=== PATIENT | female | born 1960 | race Caucasian/White ===

== ENCOUNTER 2016-07-23 11:18 | Observation (INO) ==
[2016-07-23] MEDS ORDERED: methylPREDNISolone 125 MG/2 ML VIAL IVP ONE (11:30)
[2016-07-23] MEDS ORDERED: Ipratropium/Albuterol Neb 3 ML IH ONE (11:30)
--- NOTE | 2016-07-23 11:34 | Emergency Department Note ---
Disposition Clinical Impression: Acute exacerbation of chronic obstructive airways disease Disposition: Admitted As Inpatient Condition: Fair Referrals: Yves Chapa MD [Primary Care Provider] - Forms: ED Satisfaction Letter Time of Disposition: 13:10 SOB HPI - General Chief Complaint: ED Shortness of Breath/Dyspnea Stated Complaint: SHAWN Time Seen by Provider: 07/23/16 11:29 Source: patient Mode of arrival: ambulatory Limitations: no limitations Nursing Notes Reviewed: Yes Vital Signs Reviewed: Yes - History of Present Illness 56-year-old with a history of COPD comes in with increasing shortness of breath for the last day or 2. Patient has audible wheezes when I walk in the room. Pt Subjective Complaint: shortness of breath, cough Onset (ago): day(s) (1) Context: recent illness Severity: moderate Consistency/Duration: constant Improves with: nothing Worsens with: exertion Known history of: COPD Associated symptoms: Reports: wheezing Treatment prior to arrival: none Cough present: Yes Cough Description: Involuntary Cough Frequency: Intermittent - Related Data Home Medications Medication Instructions Recorded Confirmed Alprazolam [Xanax 0.5 MG Tablet] 0.5 mg PO DAILY PRN 02/11/15 07/23/16 Atorvastatin Calcium [Lipitor] 20 mg PO QAM 02/11/15 07/23/16 FLUoxetine HCl [Prozac] 40 mg PO QAM 02/11/15 07/23/16 Furosemide [Lasix] 20 - 40 mg PO QAM PRN 02/11/15 07/23/16 Hydrocodone/Acetaminophen [[place] 1 tab PO DAILY PRN 02/11/15 07/23/16 5-325 Tablet] Levothyroxine [Synthroid] 225 mcg PO QAM 02/11/15 07/23/16 Lisinopril/Hydrochlorothiazide 1 tab PO QAM 02/11/15 07/23/16 [Zestoretic 20-25 mg Tablet] Meloxicam [Mobic] 15 mg PO QAM 02/11/15 07/23/16 Budesonide/Formoterol 80/4.5 1 puff IH BID 05/12/15 07/23/16 [Symbicort 80/4.5] Potassium Chloride 10 meq PO DAILY PRN 07/05/15 07/23/16 Calcium Carbonate [Calcium] 500 - 1,000 mg PO DAILY 07/23/16 07/23/16 Roflumilast [Daliresp] 500 mcg PO DAILY 07/23/16 07/23/16 Tiotropium [place] [Spiriva 1 puff IH DAILY 07/23/16 07/23/16 Respimat] Previous Rx's Medication Instructions Recorded Albuterol Neb [AccuNeb] 1.25 mg IH Q6H 30 Days 02/13/15 Albuterol Sulfate [Proair 2 puff IH Q6H PRN #2 [email or web address] 02/13/15 Respiclick] Ropinirole [Requip] 1 mg PO HS #30 tablet 07/07/15 Allergies Allergy/AdvReac Type Severity Reaction Status Date / Time Temazepam [From Restoril] Allergy Hives Verified 05/12/15 19:54 All systems ED: reviewed and negative except as stated. Constitutional: Denies: fever, chills, weakness, weight change Eyes: Denies: eye pain, eye discharge, vision change ENT ED: Denies: ear pain, throat pain, dental pain, hearing loss, epistaxis, congestion, dysphagia Cardiovascular: Denies: chest pain, palpitations, dyspnea on exertion, edema, syncope Respiratory: Reports: cough, dyspnea, wheezes. Denies: hemoptysis, stridor Gastrointestinal: Denies: abdominal pain, nausea, vomiting, diarrhea, constipation, hematemesis, melena, hematochezia Genitourinary: Denies: dysuria, frequency, hematuria, discharge Musculoskeletal: Denies: back pain, neck pain, arthralgia, myalgia Integumentary: Denies: rash, abrasion, lesions Neurological: Denies: headache, weakness, numbness, paresthesias, confusion, abnormal gait, vertigo Psychiatric: Denies: anxiety, depression, suicidal thoughts, homicidal thoughts , auditory hallucinations, visual hallucinations Endocrine: Denies: fatigue Hematological/Lymphatic: Denies: easy bleeding, easy bruising Allergic/Immunologic: Denies: facial swelling, urticaria Past Medical History - Past Medical History Medical history: Reports: arthritis, CHF, COPD, GERD, hyperlipidemia, hypertension, osteoporosis, thyroid disease, venous stasis, other (Morbid obesity) Surgical history: Reports: hysterectomy Psychiatric history: Reports: anxiety, depression, other 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 - Social History Smoking Status: Former smoker Smokeless Tobacco Status: No Alcohol use: Reports: none Drug use: Reports: none Physical Exam - General Limitations: no limitations General appearance: alert, in no apparent distress - Head Head exam: atraumatic, normocephalic, normal inspection - Eye Eye exam: Present: normal appearance, PERRL, EOMI - ENT ENT exam: normal exam, normal oropharynx, mucous membranes moist - Neck Neck exam: Present: normal inspection, full ROM, trachea midline - Chest Chest inspection: Present: normal inspection, symmetric chest wall rise - Respiratory Respiratory exam: Present: respiratory distress (Mild to moderate), wheezes, accessory muscle use, prolonged expiratory phase - Cardiovascular Cardiovascular exam: Present: regular rate, normal rhythm, normal heart sounds - Abdominal Exam Abdominal exam: Present: soft, Non-Tender. Absent: tenderness, distention, guarding, rebound, rigidity - Extremities Exam Extremities exam: Present: normal inspection, full ROM. Absent: tenderness, pedal edema - Expanded Lower Extremity Exam Neurovascular/Tendon exam: Absent: motor deficit, sensory deficit, tendon deficit Gait: observed and normal - Back Exam Back exam: Present: normal inspection, full ROM. Absent: tenderness - Neurological Exam Neurological exam: Present: alert, oriented X3 - Psychiatric Psychiatric exam: Present: normal affect, normal mood - Skin Skin exam: Present: warm, dry, intact, normal color Course - Reevaluation(s) Reevaluation #1: This 6-year-old with a history of COPD who is oxygen dependent requiring 2 L comes in with increasing shortness of breath for the last day or 2. Chest x- rays negative patient did have diffuse wheezes tachypnea on arrival. Patient requiring 3 L now to maintain her sat. Patient given breathing treatments continues to have wheezing and exertional dyspnea. Time: 12:31 - Consultations Consultation #1: Discussed with , admit. Time: 13:10 Vital Signs Temperature 98.4 F 07/23/16 11:29 Pulse Rate 75 07/23/16 11:29 Respiratory Rate 24 07/23/16 11:29 Blood Pressure 175/93 07/23/16 11:29 O2 Sat by Pulse Oximetry 97 07/23/16 11:29 Temperature 98.4 F 07/23/16 11:29 Pulse Rate 76 07/23/16 12:36 Respiratory Rate 20 07/23/16 11:38 Blood Pressure 152/87 07/23/16 12:36 O2 Sat by Pulse Oximetry 96 07/23/16 12:36 Oxygen Delivery Oxygen Delivery Nasal Cannula Shortness of Breath/Dyspnea - Lab Data Lab results reviewed: Yes I reviewed the patient's lab results. Result diagrams: 07/23/16 11:49 07/23/16 11:49 Lab Results 07/23/16 07/23/16 07/23/16 Range/Units 11:49 11:49 11:49 WBC 9.4 (4.3-11.1) K/mcL RBC 4.55 (3.82-4.97) M/mcL Hgb 12.3 (11.5-15.4) g/dL Hct 39.2 (35.3-44.9) % MCV 86.2 (83.0-100.0) fL MCH 27.0 L (28.0-33.3) pg MCHC 31.4 L (31.6-35.5) g/dL RDW 14.2 (11.5-14.5) % Plt Count 231 (140-400) K/mcL MPV 9.7 (9.4-12.4) fL Immature Gran % 0.5 (0-4) % Seg Neutrophils % 75.6 % Lymphocytes % 8.6 % Monocytes % 9.1 % Eosinophils % 5.7 % Basophils % 0.5 % Neutrophils # 7.1 (1.6-8.9) K/mcL Lymphocytes # 0.8 (0.6-4.6) K/mcL Monocytes # 0.9 (0.0-1.3) K/mcL Eosinophils # 0.5 (0.0-0.6) K/mcL Basophils # 0.1 (0.0-0.2) K/mcL PT (9.4-12.1) Seconds INR APTT (26.0-36.0) Seconds Sodium 140 (136-145) mEq/L Potassium 3.5 (3.5-4.5) mEq/L Chloride 102 (98-109) mEq/L Carbon Dioxide 31 H (19-29) mEq/L BUN 8 (7-20) mg/dL Creatinine 0.70 (0.57-1.11) mg/dL Est GFR ( Amer) > 60 (> 60) Est GFR (Non-Af Amer) > 60 (> 60) BUN/Creatinine Ratio 11 (6-26) Glucose 111 H (70-99) mg/dL Calculated Osmolality 289 (280-300) Lactic Acid 0.7 (0.5-2.2) mmol/L Calcium 9.5 (8.6-10.8) mg/dL Troponin I (0-0.03) ng/mL B-Natriuretic Peptide (0-100) pg/mL 07/23/16 07/23/16 07/23/16 Range/Units 11:49 11:49 11:49 WBC (4.3-11.1) K/mcL RBC (3.82-4.97) M/mcL Hgb (11.5-15.4) g/dL Hct (35.3-44.9) % MCV (83.0-100.0) fL MCH (28.0-33.3) pg MCHC (31.6-35.5) g/dL RDW (11.5-14.5) % Plt Count (140-400) K/mcL MPV (9.4-12.4) fL Immature Gran % (0-4) % Seg Neutrophils % % Lymphocytes % % Monocytes % % Eosinophils % % Basophils % % Neutrophils # (1.6-8.9) K/mcL Lymphocytes # (0.6-4.6) K/mcL Monocytes # (0.0-1.3) K/mcL Eosinophils # (0.0-0.6) K/mcL Basophils # (0.0-0.2) K/mcL PT 11.7 (9.4-12.1) Seconds INR 1.1 APTT 25.1 L (26.0-36.0) Seconds Sodium (136-145) mEq/L Potassium (3.5-4.5) mEq/L Chloride (98-109) mEq/L Carbon Dioxide (19-29) mEq/L BUN (7-20) mg/dL Creatinine (0.57-1.11) mg/dL Est GFR ( Amer) (> 60) Est GFR (Non-Af Amer) (> 60) BUN/Creatinine Ratio (6-26) Glucose (70-99) mg/dL Calculated Osmolality (280-300) Lactic Acid (0.5-2.2) mmol/L Calcium (8.6-10.8) mg/dL Troponin I 0.00 (0-0.03) ng/mL B-Natriuretic Peptide 45 (0-100) pg/mL - Radiology Data Radiology results reviewed: Yes I reviewed the patient's radiology results. Chest X-Ray 07/23/16 11:30 IMPRESSION: Pulmonary vascular congestion. D/ / Zia Caldwell MD / Zia Caldwell MD Interpreting Provider: Zia Caldwell MD
[2016-07-23 12:01] LABS: Basophils # 0.1 K/mcL (0.0-0.2); Basophils % 0.5 %; Eosinophils # 0.5 K/mcL (0.0-0.6); Eosinophils % 5.7 %; Hematocrit 39.2 % (35.3-44.9); Hemoglobin 12.3 g/dL (11.5-15.4); Immature Granulocytes % 0.5 % (0-4); Lymphocytes # 0.8 K/mcL (0.6-4.6); Lymphocytes % 8.6 %; Mean Corpuscular HGB Conc 31.4 g/dL (31.6-35.5); Mean Corpuscular Volume 86.2 fL (83.0-100.0); Mean Platelet Volume 9.7 fL (9.4-12.4); Monocytes # 0.9 K/mcL (0.0-1.3); Monocytes % 9.1 %; Neutrophils # 7.1 K/mcL (1.6-8.9); Platelet Count 231 K/mcL (140-400); Red Blood Count 4.55 M/mcL (3.82-4.97); Red Cell Distribution Width 14.2 % (11.5-14.5); Segmented Neutrophils % 75.6 %
[2016-07-23 12:05] LABS: INR 1.1; Prothrombin Time 11.7 Seconds (9.4-12.1)
[2016-07-23 12:07] LABS: Activated Partial Thrombo Time 25.1 Seconds (26.0-36.0)
[2016-07-23 12:08] LABS: BUN/Creatinine Ratio 11 (6-26); Blood Urea Nitrogen 8 mg/dL (7-20); Calcium 9.5 mg/dL (8.6-10.8); Carbon Dioxide 31 mEq/L (19-29); Chloride 102 mEq/L (98-109); Glucose 111 mg/dL (70-99); Osmolality,Calculated 289 (280-300); Potassium 3.5 mEq/L (3.5-4.5); Sodium 140 mEq/L (136-145); eGFR For African Americans > 60 (> 60); eGFR For Non-African Americans > 60 (> 60)
[2016-07-23] MEDS ORDERED: Ipratropium/Albuterol Neb 3 ML IH STA (16:29)
[2016-07-23] MEDS ORDERED: Furosemide 40 MG/4 ML VIAL IVP STA (16:30)
[2016-07-23] MEDS ORDERED: Ipratropium/Albuterol Neb 3 ML ONE (16:33)
--- NOTE | 2016-07-23 16:58 | Internal Med History&Physical ---
<RomeroFalgunizoey Worley - Last Filed: 07/23/16 18:08> Date of Encounter: 07/23/16 Time of Encounter: 16:51 Assessment and Plan (1) Acute on chronic respiratory failure Current visit: Yes Status: Acute Secondary to COPD exacerbation No signs of PNA, CXR negative for opacities, normal WBC, no crackles on exam Levaquin, solumedrol, nebs, O2 supplementation to goal 90%, mucinex, fluter valve Continue home COPD medications Respiratory panel, strep antigen, legionella antigen are pending Qualifiers: Respiratory failure complication: hypoxia Qualified Code(s): J96.21 - Acute and chronic respiratory failure with hypoxia (2) Acute exacerbation of chronic obstructive airways disease Current visit: Yes Status: Acute See plan as above (3) Diastolic dysfunction Current visit: Yes Status: Suspected Suspected given CXR with pulmonary congestion and increased periperal edema Previous ECHO 07/06/15 poor study, LVEF 60%, mild concentric LVH, mild LV diastolic dysfunction, mildly dilated RV, no obvious valvular dysfunction, RSVP not estimated IV lasix Strict I&O Low salt diet, 1.8L fluid restriction diet (4) Obstructive sleep apnea Current visit: Yes Status: Acute Patient uses BIPAP at home Bipap ordered (5) Hypertension Current visit: Yes Status: Acute BP uncontrolled on presentation to hospital Continue Lisinopril Will hold HCTZ due to diuresis Qualifiers: Hypertension type: essential hypertension Qualified Code(s): I10 - Essential (primary) hypertension (6) GERD (gastroesophageal reflux disease) Current visit: No Status: Chronic PPI Qualifiers: Esophagitis presence: esophagitis presence not specified Qualified Code(s) : K21.9 - Gastro-esophageal reflux disease without esophagitis (7) Hypothyroid Current visit: No Status: Chronic Continue home dose of synthroid Qualifiers: Hypothyroidism type: unspecified Qualified Code(s): E03.9 - Hypothyroidism , unspecified (8) RLS (restless legs syndrome) Current visit: No Status: Suspected continue Requip (9) Morbid obesity with BMI of 40.0-44.9, adult Current visit: No Status: Chronic (10) DVT prophylaxis Current visit: No Status: Acute Heparin SQ Internal Medicine - H&P: HPI Chief complaint: dyspnea Admitted From: Emergency Dept Plans for Post Hospital Care: Home History of present illness: Ms. Guadalupe is a 56 year old female who presents to [facility] with 1 day history of worsening dyspnea. Patient states that she awoke yesterday morning with increased dyspnea which worsened through the night last night. Patient was up multiple times throughout the night. Patient awoke this morning with severe dyspnea that prevented her from walking down her hallway. Patient tried increasing her home O2 from 2L to 3L. She also did albuterol nebulizers every 3 hours. Patient admits cough productive of yellow to green mucus. No hemoptysis or brown sputum. She admits increased wheezing. Patient states that she raises her grandchildren. A couple of days ago, her grandchild was diagnosed with an URI and treated with antibiotics. Admits increased leg swelling. Patient denies fever, chills, weakness, chest pain, tachypnea, palpitations, abominal pain, diarrhea, constipation, dysuria, myalgia. Patient states that she has previously been hospitalized for COPD in the past. She denies having previously been placed on ventilatory due to COPD. Past Med Surg Social Fam HX - Past Medical History Medical history: arthritis, CHF, COPD, GERD, hyperlipidemia, hypertension, osteoporosis, thyroid disease, venous stasis, other Psychiatric history: anxiety, depression, other - Past Surgical History Surgical History: hysterectomy - Social History Smoking Status: Former smoker Smokeless Tobacco Status: No Alcohol use: none Drug use: none - Family History Mother Living Status: Age at : 68 Cause of : complications of brain surgery Hx Family Cardiac Disorders: Yes (HTN) Father Living Status: Still Living Hx Family Cardiac Disorders: Yes (HLD) Hx Family Cancer: Yes (KIDNEY CANCER) Internal Medicine - H&P: Meds Alprazolam [Xanax 0.5 MG Tablet] 0.5 mg PO DAILY PRN 02/11/15 [History] Atorvastatin Calcium [Lipitor] 20 mg PO QAM 02/11/15 [History] FLUoxetine HCl [Prozac] 40 mg PO QAM 02/11/15 [History] Furosemide [Lasix] 20 - 40 mg PO QAM PRN 02/11/15 [History] Hydrocodone/Acetaminophen [[place] 5-325 Tablet] 1 tab PO DAILY PRN 02/11/15 [ History] Levothyroxine [Synthroid] 225 mcg PO QAM 02/11/15 [History] Lisinopril/Hydrochlorothiazide [Zestoretic 20-25 mg Tablet] 1 tab PO QAM [History] Meloxicam [Mobic] 15 mg PO QAM 02/11/15 [History] Albuterol Neb [AccuNeb] 1.25 mg IH Q6H 30 Days 02/13/15 [Rx] Albuterol Sulfate [Proair Respiclick] 2 puff IH Q6H PRN #2 [email or web address] 02/13/15 [ Rx] Budesonide/Formoterol 80/4.5 [Symbicort 80/4.5] 1 puff IH BID 05/12/15 [History ] Potassium Chloride 10 meq PO DAILY PRN 07/05/15 [History] Ropinirole [Requip] 1 mg PO HS #30 tablet 07/07/15 [Rx] Calcium Carbonate [Calcium] 500 - 1,000 mg PO DAILY 07/23/16 [History] Roflumilast [Daliresp] 500 mcg PO DAILY 07/23/16 [History] Tiotropium [place] [Spiriva Respimat] 1 puff IH DAILY 07/23/16 [History] Allergies Temazepam [From Restoril] Allergy (Verified 05/12/15 19:54) Hives All Systems PM: A 10-system review of systems was performed and is negative for pertinent findings except as documented above in the HPI. - Constitutional Constitutional: no chills, no fever(s), no weakness - EENT Nose, mouth and throat: no nasal congestion, no sinus pain, no sinus pressure, no sore throat - Cardiovascular Cardiovascular ROS IM: dyspnea, dyspnea on exertion, edema, no chest pain - Respiratory Respiratory: cough, dyspnea, dyspnea on exertion, wheezing, change in phlegm color, no hemoptysis, no pain on inspiration, no pain with cough - Gastrointestinal Gastrointestinal: no constipation, no diarrhea - Genitourinary Genitourinary: no dysuria - Musculoskeletal Musculoskeletal ROS IM: no arthralgias, no myalgias - Neurological Neurological ROS: no numbness, no weakness - Constitutional Vitals: Temp Pulse Resp BP Pulse Ox 96.2 F L 82 17 174/75 97 07/23/16 14:48 07/23/16 14:48 07/23/16 14:48 07/23/16 14:48 07/23/16 14:48 General appearance: Present: mild distress (Patiet in tripod position. She speaks in one to two word sentences between breaths. ), A&O X 3, morbidly obese , pleasant, answers questions appropriately - Head Head exam: Present: atraumatic, normal inspection, normocephalic - Neck Neck exam general surgery: Present: full ROM, normal inspection, supple, trachea midline. Absent: lymphadenopathy, tenderness, thyromegaly - Respiratory Respiratory exam: Present: prolonged expiratory phase, rhonchi (to bilateral lung bases), wheezes (Diffuse wheezing in all lung black) - Cardiovascular Cardiovascular exam: Present: distant heart sounds (Difficult to appreciate heart sounds over loud wheezing), RRR. Absent: diastolic murmur, systolic murmur - GI/Abdominal GI/Abdominal exam: Present: normal bowel sounds, soft. Absent: distended, guarding, tenderness, no peritoneal signs - Extremities Exam Extremities exam: Present: pedal edema (1+ to bilateral lower extremities), warm , radial pulses palpable and symetrical - Neurological Exam Neurological exam: Present: oriented X3. Absent: no focal deficits, facial droop - Skin Additional comments: Waxy scales to bilateral lower extremities Internal Med - H&P Results - Labs CBC & Chem 7: 07/23/16 11:49 07/23/16 11:49 - EKG Data -: EKG Interpreted by Myself EKG shows normal: sinus rhythm Rate: normal - Impressions Chest X-Ray 07/23/16 11:30 IMPRESSION: Pulmonary vascular congestion. D/ / Zia Caldwell MD / Zia Caldwell MD Interpreting Provider: Zia Caldwell MD <Cathy Anderson E - Last Filed: 07/23/16 18:48> Date of Encounter: 07/23/16 Internal Medicine - H&P: HPI History of present illness: Ms. Guadalupe is a 56 year old female All Systems PM: A 10-system review of systems was performed and is negative for pertinent findings except as documented above in the HPI. - Constitutional Vitals: Temp Pulse Resp BP Pulse Ox 96.2 F L 82 16 174/75 94 07/23/16 14:48 04/20/17 14:48 07/23/16 16:36 07/23/16 14:48 07/23/16 16:36 Internal Med - H&P Results - Labs CBC & Chem 7: 07/23/16 11:49 07/23/16 11:49 - Attending Attestation I examined this patient and reviewed laboratory, imaging and all diagnostic data. My medical decision-making was reviewed with Dr Jasso - Resident Physician. I agree with the documented findings, disposition and treatment plan as described above
[2016-07-23] MEDS ORDERED: Naloxone 0.4 MG/ML INJ IVP PRN (17:10)
[2016-07-23] MEDS ORDERED: Albuterol 2.5 MG/3 ML NEBULIZER IH PRN (17:10)
[2016-07-23] MEDS ORDERED: Furosemide 40 MG TABLET PO SCH (17:15)
[2016-07-23] MEDS ORDERED: ALPRAZolam 0.5 MG TABLET PO PRN (17:18)
[2016-07-23] MEDS: levoFLOXacin 500 MG TABLET PO SCH (17:24)
[2016-07-23] MEDS: *HR* Heparin 5,000 UNIT/ML VIAL SQ SCH (18:44)
[2016-07-23] MEDS: Budesonide/Formoterol 80/4.5 MDI IH SCH (19:35)
[2016-07-23] MEDS: Ipratropium/Albuterol Neb 3 ML IH SCH ×2 (19:35→23:53)
[2016-07-23] MEDS: methylPREDNISolone 125 MG/2 ML VIAL IVP SCH (20:03)
[2016-07-23] MEDS: rOPINIRole 1 MG TABLET PO SCH (20:03)
[2016-07-23 20:05] LABS: Adenovirus Not Detected (Not Detect); Coronavirus 229E Not Detected (Not Detect); Coronavirus HKU1 Not Detected (Not Detect); Coronavirus NL63 Not Detected (Not Detect); Coronavirus OC43 Not Detected (Not Detect); Human Metapneumovirus Not Detected (Not Detect); Human Rhinovirus/Enterovirus Not Detected (Not Detect); Influenza A Subtype 2009 H1 Not Detected (Not Detect); Influenza A Untypeable Not Detected (Not Detect); Influenza B Not Detected (Not Detect); Parainfluenza Virus 1 Not Detected (Not Detect); Parainfluenza Virus 2 Not Detected (Not Detect)
[2016-07-23 20:06] LABS: Bordetella Pertussis Not Detected (Not Detect); Chlamydophila pneumoniae Not Detected (Not Detect); Mycoplasma pneumoniae Not Detected (Not Detect); Parainfluenza Virus 3 Not Detected (Not Detect); Parainfluenza Virus 4 Not Detected (Not Detect); Respiratory Syncytial Virus Not Detected (Not Detect)
[2016-07-23] MEDS ORDERED: Furosemide 40 MG/4 ML VIAL IVP SCH (21:00)
[2016-07-24] MEDS: Ipratropium/Albuterol Neb 3 ML IH SCH ×5 (03:39→20:03)
[2016-07-24 03:56] LABS: Basophils % 0.1 %; Hemoglobin 12.4 g/dL (11.5-15.4); Immature Granulocytes % 0.7 % (0-4); Lymphocytes % 3.8 %; Mean Corpuscular HGB Conc 31.8 g/dL (31.6-35.5); Mean Corpuscular Hemoglobin 27.3 pg (28.0-33.3); Mean Corpuscular Volume 85.9 fL (83.0-100.0); Mean Platelet Volume 10.4 fL (9.4-12.4); Monocytes % 1.9 %; Neutrophils # 9.6 K/mcL (1.6-8.9); Platelet Count 261 K/mcL (140-400); Red Blood Count 4.54 M/mcL (3.82-4.97); Red Cell Distribution Width 14.1 % (11.5-14.5); Segmented Neutrophils % 93.5 %
[2016-07-24 03:57] LABS: Lymphocytes # 0.4 K/mcL (0.6-4.6); Monocytes # 0.2 K/mcL (0.0-1.3)
[2016-07-24] MEDS: methylPREDNISolone 125 MG/2 ML VIAL IVP SCH ×3 (04:02→20:18)
[2016-07-24 04:10] LABS: BUN/Creatinine Ratio 13 (6-26); Blood Urea Nitrogen 10 mg/dL (7-20); Calcium 9.8 mg/dL (8.6-10.8); Carbon Dioxide 31 mEq/L (19-29); Chloride 100 mEq/L (98-109); Glucose 204 mg/dL (70-99); Magnesium 2.1 mg/dL (1.6-2.6); Osmolality,Calculated 295 (280-300); Potassium 3.4 mEq/L (3.5-4.5); Sodium 140 mEq/L (136-145); eGFR For African Americans > 60 (> 60); eGFR For Non-African Americans > 60 (> 60)
[2016-07-24] MEDS: *HR* HYDROcodone/Acet 5/325 mg TABLET PO PRN ×2 (05:05→20:22)
[2016-07-24] MEDS: *HR* Heparin 5,000 UNIT/ML VIAL SQ SCH ×2 (05:07→16:33)
[2016-07-24] MEDS ORDERED: rOPINIRole 1 MG TABLET PO PRN (08:42)
[2016-07-24] MEDS: FLUoxetine 20 MG CAPSULE PO SCH (08:56)
[2016-07-24] MEDS: levoFLOXacin 500 MG TABLET PO SCH (08:56)
[2016-07-24] MEDS: Furosemide 40 MG/4 ML VIAL IVP SCH ×2 (08:58→16:33)
[2016-07-24] MEDS ORDERED: Lisinopril 20 MG TABLET PO SCH (09:00)
[2016-07-24] MEDS ORDERED: NON-FORMULARY MEDICATION 1 EACH EACH (Atorvastatin Calcium [Lipitor] 20 MG) PO SCH (09:00)
[2016-07-24] MEDS ORDERED: (Roflumilast [Daliresp] 500 MCG) PO SCH (09:00)
--- NOTE | 2016-07-24 10:23 | Internal Med Progress Note ---
<RomeroFalguni Pinajose Worley - Last Filed: 07/24/16 12:31> Date of Encounter: 07/24/16 Time of Encounter: 08:30 - Assessment and plan (1) Acute on chronic respiratory failure Current Visit: Yes Status: Acute Assessment and plan: Secondary to COPD exacerbation No signs of PNA, CXR negative for opacities, normal WBC, no crackles on exam Levaquin, solumedrol, nebs, O2 supplementation to goal 90%, mucinex, fluter valve Continue home COPD medications Respiratory panel, strep antigen, legionella antigen are negative Patient minimally improved today Decreased O2 demand from 3L to 2L Qualifiers: Respiratory failure complication: hypoxia Qualified Code(s): J96.21 - Acute and chronic respiratory failure with hypoxia (2) Acute exacerbation of chronic obstructive airways disease Current Visit: Yes Status: Acute Assessment and plan: See plan as above (3) Diastolic dysfunction Current Visit: Yes Status: Suspected Assessment and plan: Suspected given CXR with pulmonary congestion and increased periperal edema Previous ECHO 07/06/15 poor study, LVEF 60%, mild concentric LVH, mild LV diastolic dysfunction, mildly dilated RV, no obvious valvular dysfunction, RSVP not estimated Repeat ECHO, pending IV lasix Strict I&O Low salt diet, 1.8L fluid restriction diet (4) Obstructive sleep apnea Current Visit: Yes Status: Acute Assessment and plan: Patient uses BIPAP at home BIPAP was ordered however not delivered to patient's room last night Patient states that she did not sleep last night and this may be secondary to dyspnea Will discuss with staff that BIPAP must be delivered tonight (5) Hypertension Current Visit: Yes Status: Acute Assessment and plan: BP uncontrolled on presentation to hospital Continue Lisinopril Will hold HCTZ due to diuresis with IV lasix Qualifiers: Hypertension type: essential hypertension Qualified Code(s): I10 - Essential (primary) hypertension (6) GERD (gastroesophageal reflux disease) Current Visit: No Status: Chronic Assessment and plan: Continue PPI Qualifiers: Esophagitis presence: esophagitis presence not specified Qualified Code(s) : K21.9 - Gastro-esophageal reflux disease without esophagitis (7) Hypothyroid Current Visit: No Status: Chronic Assessment and plan: Continue home dose of synthroid Qualifiers: Hypothyroidism type: unspecified Qualified Code(s): E03.9 - Hypothyroidism , unspecified (8) RLS (restless legs syndrome) Current Visit: No Status: Suspected Assessment and plan: Continue Requip (9) Morbid obesity with BMI of 40.0-44.9, adult Current Visit: No Status: Chronic (10) Hypokalemia Current Visit: Yes Status: Acute Assessment and plan: Repleted Continue to monitor (11) DVT prophylaxis Current Visit: No Status: Acute Assessment and plan: Heparin SQ - Time Spent With Patient 25 - 35 minutes (30 minutes including time with patient and coordinating care) - Subjective Interval history: Patient states that she feels somewhat better today. She continues to have wheezing. She decreased her O2 requirement to 2L from 3L. She states that she did not sleep last night. She states that she did not use a BIPAP last night because one was not brought to her room. - Constitutional Vitals: Temp Pulse Resp BP Pulse Ox 98.1 F 79 18 147/79 95 07/24/16 08:06 07/24/16 08:06 07/24/16 08:06 07/24/16 08:06 07/24/16 09:00 General appearance: Present: mild distress (Patiet continues to speak in short phrases, but this is improved from yesterday evening. ), A&O X 3, morbidly obese, pleasant, answers questions appropriately - Head Head exam: Present: atraumatic, normocephalic - Eye Eye exam: Present: EOMI, PERRL, conjuntiva pink, sclera anicteric - Neck Neck exam general surgery: Present: supple, trachea midline. Absent: lymphadenopathy - Respiratory Respiratory exam: Present: prolonged expiratory phase, wheezes (loud diffuse wheezing in all lung black). Absent: accessory muscle use, rales, rhonchi - Cardiovascular Cardiovascular exam: Present: RRR, +S1, +S2. Absent: diastolic murmur, gallop, rubs, systolic murmur - GI/Abdominal GI/Abdominal exam: Present: normal bowel sounds, soft, no peritoneal signs. Absent: distended, tenderness - Extremities Exam Extremities exam: Present: pedal edema (1+ pitting edema bilaterally), warm, radial pulses palpable and symetrical. Absent: calf tenderness, cyanotic - Neurological Exam Neurological exam: Present: CN II-XII intact, oriented X3, no focal deficits. Absent: facial droop, speech deficit - Skin Skin exam: Present: dry, intact Internal Medicine: Result - Labs CBC & Chem 7: 07/24/16 03:19 07/24/16 03:19 Labs: Short CBC 07/24/16 Range/Units 03:19 WBC 10.3 (4.3-11.1) K/mcL Hgb 12.4 (11.5-15.4) g/dL Hct 39.0 (35.3-44.9) % Plt Count 261 (140-400) K/mcL Neutrophils # 9.6 H (1.6-8.9) K/mcL BMP 07/24/16 03:19 Sodium 140 Potassium 3.4 L Chloride 100 Carbon Dioxide 31 H BUN 10 Creatinine 0.76 Glucose 204 H Calcium 9.8 - ABG Interpretation ABG results: PT/INR, D-dimer PT 11.7 Seconds (9.4-12.1) 07/23/16 11:49 - Impressions Chest X-Ray 07/23/16 11:30 IMPRESSION: Pulmonary vascular congestion. D/ / Zia Caldwell MD / Zia Caldwell MD Interpreting Provider: Zia Caldwell MD Consult Discharge Plan - Plan Referrals: Yves Chapa MD [Primary Care Provider] - <Cathy Anderson E - Last Filed: 07/24/16 16:52> Date of Encounter: 07/24/16 - Constitutional Vitals: Temp Pulse Resp BP Pulse Ox 97.9 F 83 18 153/79 94 07/24/16 15:29 07/24/16 15:29 07/24/16 16:00 07/24/16 15:29 07/24/16 16:00 Internal Medicine: Result - Labs CBC & Chem 7: 07/24/16 03:19 07/24/16 03:19 Labs: Short CBC 07/24/16 Range/Units 03:19 WBC 10.3 (4.3-11.1) K/mcL Hgb 12.4 (11.5-15.4) g/dL Hct 39.0 (35.3-44.9) % Plt Count 261 (140-400) K/mcL Neutrophils # 9.6 H (1.6-8.9) K/mcL BMP 07/24/16 03:19 Sodium 140 Potassium 3.4 L Chloride 100 Carbon Dioxide 31 H BUN 10 Creatinine 0.76 Glucose 204 H Calcium 9.8 - ABG Interpretation ABG results: PT/INR, D-dimer PT 11.7 Seconds (9.4-12.1) 07/23/16 11:49 - Attending Attestation I examined this patient and reviewed laboratory, imaging and all diagnostic data. My medical decision-making was reviewed with Dr Jasso - Resident Physician. I agree with the documented findings, disposition and treatment plan as described above
[2016-07-24] MEDS: Budesonide/Formoterol 80/4.5 MDI IH SCH ×2 (10:48→20:05)
[2016-07-24] MEDS ORDERED: Lisinopril 20 MG TABLET PO ONE (12:24)
--- NOTE | 2016-07-24 12:39 | Electrocardiograph Report ---
[place] [id number] Test Date: 2016-07-23 Pat Name: Kate Gudaalupe Department: 103 Room: 3A14 Gender: F Access Specialist: NANCI : 1960 Requested By: Storm Quiles Order Number: [id number] Reading MD: Neeta Mcneill Measurements Intervals [place] Rate: 73 P: 36 CT: 162 QRS: 27 QRSD: 98 T: 52 QT: 389 QTc: 415 Interpretive Statements SINUS RHYTHM Electronically Signed On 07-24-2016 12:37:45 EDT by Neeta Mcneill
[2016-07-24] MEDS: rOPINIRole 1 MG TABLET PO SCH (20:22)
[2016-07-25] MEDS: Ipratropium/Albuterol Neb 3 ML IH SCH ×3 (00:19→07:37)
[2016-07-25] MEDS: methylPREDNISolone 125 MG/2 ML VIAL IVP SCH (04:28)
[2016-07-25] MEDS: *HR* Heparin 5,000 UNIT/ML VIAL SQ SCH (06:00)
[2016-07-25 06:38] LABS: BUN/Creatinine Ratio 27 (6-26); Basophils % 0.1 %; Calcium 9.7 mg/dL (8.6-10.8); Carbon Dioxide 31 mEq/L (19-29); Chloride 105 mEq/L (98-109); Glucose 174 mg/dL (70-99); Hemoglobin 12.2 g/dL (11.5-15.4); Immature Granulocytes % 1.1 % (0-4); Lymphocytes # 0.6 K/mcL (0.6-4.6); Lymphocytes % 3.7 %; Magnesium 2.1 mg/dL (1.6-2.6); Mean Corpuscular HGB Conc 31.3 g/dL (31.6-35.5); Mean Corpuscular Hemoglobin 27.4 pg (28.0-33.3); Mean Corpuscular Volume 87.4 fL (83.0-100.0); Mean Platelet Volume 10.9 fL (9.4-12.4); Monocytes # 1.2 K/mcL (0.0-1.3); Monocytes % 7.1 %; Osmolality,Calculated 308 (280-300); Platelet Count 286 K/mcL (140-400); Potassium 4.2 mEq/L (3.5-4.5); Red Blood Count 4.46 M/mcL (3.82-4.97); Red Cell Distribution Width 14.6 % (11.5-14.5); Sodium 145 mEq/L (136-145); eGFR For African Americans > 60 (> 60); eGFR For Non-African Americans > 60 (> 60)
[2016-07-25 06:40] LABS: Blood Urea Nitrogen 22 mg/dL (7-20)
[2016-07-25 07:22] VITALS: BP 144/80
[2016-07-25] MEDS: Budesonide/Formoterol 80/4.5 MDI IH SCH (07:37)
[2016-07-25] MEDS: Furosemide 40 MG/4 ML VIAL IVP SCH (07:55)
[2016-07-25] MEDS: FLUoxetine 20 MG CAPSULE PO SCH (07:56)
[2016-07-25] MEDS: levoFLOXacin 500 MG TABLET PO SCH (07:56)
[2016-07-25] MEDS ORDERED: Lisinopril 20 MG TABLET PO SCH (09:00)
--- NOTE | 2016-07-25 09:41 | Discharge Summary ---
<RomeroFalgunizoey Worley - Last Filed: 07/25/16 13:32> Date of Encounter: 07/25/16 Time of Encounter: 09:39 - Discharge Diagnosis (1) Acute on chronic respiratory failure Priority: Primary Status: Acute Qualifiers: Respiratory failure complication: hypoxia Qualified Code(s): J96.21 - Acute and chronic respiratory failure with hypoxia (2) Acute exacerbation of chronic obstructive airways disease Priority: Primary Status: Acute (3) Diastolic dysfunction Priority: Secondary Status: Chronic (4) Obstructive sleep apnea Priority: Secondary Status: Chronic (5) Hypertension Priority: Secondary Status: Chronic Qualifiers: Hypertension type: essential hypertension Qualified Code(s): I10 - Essential (primary) hypertension (6) GERD (gastroesophageal reflux disease) Priority: Secondary Status: Chronic Qualifiers: Esophagitis presence: esophagitis presence not specified Qualified Code(s) : K21.9 - Gastro-esophageal reflux disease without esophagitis (7) Hypothyroid Priority: Secondary Status: Chronic Qualifiers: Hypothyroidism type: unspecified Qualified Code(s): E03.9 - Hypothyroidism , unspecified (8) RLS (restless legs syndrome) Priority: Secondary Status: Chronic (9) Morbid obesity with BMI of 40.0-44.9, adult Priority: Secondary Status: Chronic (10) Hypokalemia Priority: Secondary Status: Acute (11) DVT prophylaxis Priority: Secondary Status: Acute - Discharge Medications Prescriptions: Aspirin Enteric Coated [Aspirin EC] 81 mg PO DAILY #30 tablet.dr Furosemide [Lasix] 60 mg PO BID #90 tablet GuaiFENesin ER [Mucinex] 600 mg PO BID #10 tbbp.12hr Levofloxacin [Levaquin] 500 mg PO DAILY #4 tablet Lisinopril [Zestril] 40 mg PO DAILY #30 tablet PredniSONE 10 mg PO AD #45 tablet Home Medications: Alprazolam [Xanax 0.5 MG Tablet] 0.5 mg PO DAILY PRN 02/11/15 [History] Atorvastatin Calcium [Lipitor] 20 mg PO QAM 02/11/15 [History] FLUoxetine HCl [Prozac] 40 mg PO QAM 02/11/15 [History] Hydrocodone/Acetaminophen [[place] 5-325 Tablet] 1 tab PO DAILY PRN 02/11/15 [ History] Levothyroxine [Synthroid] 225 mcg PO QAM 02/11/15 [History] Albuterol Sulfate [Proair Respiclick] 2 puff IH Q6H PRN #2 aer.pow.ba 02/13/15 [ Rx] Budesonide/Formoterol 80/4.5 [Symbicort 80/4.5] 1 puff IH BID 05/12/15 [History ] Ropinirole [Requip] 1 mg PO HS #30 tablet 07/07/15 [Rx] Calcium Carbonate [Calcium] 500 - 1,000 mg PO DAILY 07/23/16 [History] Roflumilast [Daliresp] 500 mcg PO DAILY 07/23/16 [History] Tiotropium [place] [Spiriva Respimat] 1 puff IH DAILY 07/23/16 [History] Albuterol Neb [AccuNeb] 1.25 mg IH Q4HR 30 Days 07/25/16 [Rx] Aspirin Enteric Coated [Aspirin EC] 81 mg PO DAILY #30 tablet.dr 07/25/16 [Rx] Furosemide [Lasix] 60 mg PO BID #90 tablet 07/25/16 [Rx] GuaiFENesin ER [Mucinex] 600 mg PO BID #10 tbbp.12hr 07/25/16 [Rx] Levofloxacin [Levaquin] 500 mg PO DAILY #4 tablet 07/25/16 [Rx] Lisinopril [Zestril] 40 mg PO DAILY #30 tablet 07/25/16 [Rx] Potassium Chloride 10 meq PO DAILY #0 07/25/16 [Rx] PredniSONE 10 mg PO AD #45 tablet 07/25/16 [Rx] Allergies/Adverse Reactions: Allergies Temazepam [From Restoril] Allergy (Verified 05/12/15 19:54) Hives Procedures/tests Complete & Pending: Procedures Performed prior 72 hours Category Date Time Status EV echocardiogram Routine Y 07/23/16 17:27 Completed Date of admission: 07/23/16 14:04 Primary care physician: Yves Chapa MD Discharging clinician: Cathy Anderson Anticipated date of discharge: 07/25/16 - Patient Status Disposition: Home, Self-Care Condition: Good Functional capacity at discharge: independent ambulation Overall status at discharge: patient is progressing back to baseline - Discharge Instructions Follow Up With: Yves Chapa MD [Primary Care Provider] - Additional Instructions: Please follow up with your doctor for COPD, lung function studies, weight loss program. Please check your blood pressure twice daily (same time in the morning and same time in the evening). Keep a record of your readings and take to your primary doctor at your next appointment. Please weigh yourself daily. If you gain 1-2 pounds, call your doctor. - Diet and Activity Activity: resume usual activities as tolerated, wear oxygen at all times (2L) Diet: low fat, low cholesterol, low salt diet, other (While taking steroids, avoid sweets and carbohydrates. Fluid restriction 1.8L per day) Hospital course: Ms. Guadalupe is a 56 year old female who presented to [facility] on 07/23/16 with worsening dyspnea. She had increased her home O2 to 3L from 2L which she uses day and night. Patient admitted cough productive of yellow to green mucus. No hemoptysis or brown sputum. Patient denied fever, chills, weakness, chest pain , tachypnea, palpitations, abdominal pain, diarrhea, constipation, dysuria, myalgia. CXR demonstrated pulmonary vascular congestion without opacification, consolidation, or pneumothorax. Last ECHO 07/05/16 demonstrated LVEF 60%, mild concentric LVH, mild LV diastolic dysfunction, mildly dilated RV with normal systolic function, no obvious valvular dysfunction. Patient was treated with Duonebs, Solumedrol, Lasix. We discontinued Lisinopril-HCTZ and continued Lisinopril due to diuresis with Lasix. Patient's wheezing is improved today. Patient states that dyspnea has improved. Patient is stable for discharge at this time. Upon discharge, patient will continue prednisone taper, nebulizers, and Lasix. - Time Spent with Patient Total time spent providing and/or coordinating discharge services: Greater than 30 minutes (35 minutes including time with patient and coordinating care) - Constitutional Vitals: Temp Pulse Resp BP Pulse Ox 97.8 F 70 16 144/80 95 07/25/16 07:21 07/25/16 07:21 07/25/16 07:37 07/25/16 07:21 07/25/16 08:12 General appearance: Present: A&O X 3, morbidly obese, pleasant, no acute distress (Patiet able to speak without catching breath in between words. She is in no distress today, but is comfortable and in bed during patient interview. ) , answers questions appropriately - Head Head exam: Present: atraumatic, normocephalic - Eye Eye exam: Present: PERRL, conjuntiva pink, sclera anicteric - Neck Neck exam general surgery: Present: supple, trachea midline. Absent: lymphadenopathy, thyromegaly - Respiratory Respiratory exam: Present: prolonged expiratory phase, wheezes (diffuse wheezing improved from yesterday). Absent: accessory muscle use, rales, rhonchi - Cardiovascular Cardiovascular exam: Present: RRR, +S1, +S2. Absent: diastolic murmur, gallop, rubs, systolic murmur - GI/Abdominal GI/Abdominal exam: Present: normal bowel sounds, soft, no peritoneal signs. Absent: distended, tenderness - Extremities Exam Extremities exam: Present: warm, radial pulses palpable and symetrical. Absent : calf tenderness, cyanotic, pedal edema - Neurological Exam Neurological exam: Present: CN II-XII intact, oriented X3, no focal deficits. Absent: pronater drift, facial droop, speech deficit - Skin Skin exam: Present: dry, intact <Cathy Anderson E - Last Filed: 07/25/16 17:27> Date of Encounter: 07/25/16 Procedures/tests Complete & Pending: Procedures Performed prior 72 hours Category Date Time Status EV echocardiogram Routine Y 07/23/16 17:27 Completed Date of admission: 07/23/16 14:04 Primary care physician: Yves Chapa MD Hospital course: Ms. Guadalupe is a 56 year old female - Time Spent with Patient Total time spent providing and/or coordinating discharge services: - Constitutional Vitals: Temp Pulse Resp BP Pulse Ox 97.8 F 70 16 144/80 95 07/25/16 07:21 07/25/16 07:21 07/25/16 07:37 07/25/16 07:21 07/25/16 08:12 - Attending Attestation I examined this patient and reviewed laboratory, imaging and all diagnostic data. My medical decision-making was reviewed with Dr Jasso - Resident Physician. I agree with the documented findings, disposition and treatment plan as described above
--- NOTE | 2016-07-27 10:04 | ECHO - Doppler Report ---
Echocardiogram Name: Kate Guadalupe Date of Study: 07/23/2016 Date: 1960 Ht: 68.0 in Medical Record#: [id number] Age: 56 Wt: 280.0 lb Gender: Female BSA: 2.36 Order #: [id number] Location: [facility] Room #: [id number] Reading Physician: Lianne Prieto DO Safety Attendant: Shauna Calhoun Ordering Physician: Cathy Anderson MD Primary Physician: Yves Chapa M.D. Indications: Acute CHF Impressions: LVEF 60%. Normal left ventricular size and systolic function. There is evidence of mild diastolic dysfunction of the left ventricle. Normal right ventricular size and function. No significant valvular dysfunction. No pulmonary hypertension. Left Ventricular Wall Motion: Rest Echo Findings All wall segments showed normal motion. Findings: Study Quality * Technically sub-optimal due to body habitus. ECG Findings * Normal sinus rhythm. Left Ventricle * LVEF 60%. * Mild left ventricular diastolic dysfunction. * Normal LV size and wall thickness. Aortic Valve * No aortic regurgitation. * Aortic valve not well visualized. * No aortic stenosis. Mitral Valve * No mitral regurgitation. * Normal mitral valve structure. * No mitral stenosis. Tricuspid Valve * Tricuspid valve not well visualized. * No tricuspid regurgitation. * Estimated RA pressure is 3 mmHg. * Estimated RVSP is 16 mmHg. * No pulmonary hypertension. Pulmonic Valve * Pulmonic valve is not well visualized. * No pulmonic stenosis. * No pulmonic regurgitation. Pulmonary Artery * Pulmonary artery not well visualized. Right Ventricle * Normal right ventricular structure and function. Left Atrium * Normal left atrial size. Right Atrium * Normal right atrial size. Pericardium * There is no pericardial effusion present. Interatrial Septum * Interatrial septum not well evaluated. IVC * Normal IVC dimensions and inspiratory collapse. Aorta * Not well visualized. History Hypertension Hypercholesteremia Years 35 Packs 2 Congestive Heart Failure 10/30/2014 a Previous Echo was performed. Measurements: BP: 174/ 75 2D Normal Values RVIDd: 2.90 cm <2.7 cm IVSd: 1.20 cm 0.6 - 1.0 cm LVIDd: 6.40 cm 3.7 - 5.6 cm LVPWd: 1.20 cm 0.6 - 1.1 cm LVIDs: 4.30 cm 1.5 - 3.6 cm AO: 2.90 cm < 4.0 cm LA: 4.60 cm 2.0 - 4.0cm %FS: 32.80 cm >25 % LA volume: 49 Mitral Valve Peak E:.77 m/sec Peak A:1.12 m/sec E/A Ratio:0.7 Peak E' Lat Abhilash:8.58 cm/s Peak E' Med Abhilash:6.53 cm/s E/E' Lat Ratio:9 E/E' Med Ratio:11.8 Tricuspid Valve TV Regurg Peak Grad: 13.00mmHg TV Regurg Peak Abhilash: 1.82m/sec Updated by Lianne Prieto on 07/27/2016 9:52:44 AM electronically signed on 07/27/2016 9:59:33 AM with status of Final Wall Motion [place]: 1=Normal, 2=Hypokinesis, 3=Akinesis, 4=Dyskinesis, 5=Aneurysmal, 6=Hyperkinetic, X=Not Visualized (Blank)=Missing
== END 2016-07-25 10:50 | disposition home or self-care (01) ==
LOC: EMEROO 11:18 → 3ANU 11:18
PROVIDERS: ADMIT Hospitalist; ATTEND Internal Medicine

== ENCOUNTER 2017-01-24 19:56 | Inpatient (IN) ==
[2017-01-24] MEDS ORDERED: predniSONE 20 MG TABLET PO ONE (20:12)
[2017-01-24] MEDS ORDERED: Ipratropium/Albuterol Neb 3 ML IH ONE (20:12)
--- NOTE | 2017-01-24 20:15 | Emergency Department Note ---
START Narrative - START START: I examined this patient and my medical decision-making was reviewed with the Resident Physician. I agree with the documented findings, disposition and treatment plan as described except to the extent set forth below. 57-year-old female presents emergency room for COPD exacerbation. She states it feels exactly like her previous COPD flare ups. She did not have any fevers. No chest pain. No lower leg pain nurse any new swelling. No documented chest pain. She states her shortness of breath is worse with activity. She has had some wheezing [id number]. She does work chronic home oxygen. She has home nebulization treatments that she uses. No other new complaints at this time.
--- NOTE | 2017-01-24 20:15 | Emergency Department Note ---
Disposition Clinical Impression: Acute exacerbation of chronic obstructive airways disease Disposition: Admitted As Inpatient Condition: Undetermined Referrals: Yves Chapa MD [Primary Care Provider] - Forms: ED Satisfaction Letter SOB HPI - General Chief Complaint: ED Shortness of Breath/Dyspnea Stated Complaint: SOB Time Seen by Provider: 01/24/17 20:06 Source: patient Mode of arrival: wheelchair Limitations: no limitations Nursing Notes Reviewed: Yes Vital Signs Reviewed: Yes - History of Present Illness 57-year-old female arrives to [facility] emergency department complaining of dyspnea. The patient states that this started roughly 4 days ago was peripherally worsen. The patient wears 2 L nasal cannula all the time at home. The patient does have an extensive history of COPD and has been utilizing her breathing treatments as prescribed. The patient states that she has been experiencing this worsening dyspnea and decided to come in the emergency department as it became unbearable. The patient is having difficulty with ambulation because of shortness of breath. She is able speak in 3-4 word sentences. The patient is tripoding and in mild- to-moderate amount of respiratory distress. The patient was raised of cyanosis. She denies any chest pain, unilateral leg swelling, hemoptysis, sputum production, recent surgeries, history of DVT or PE. The patient does state that she has felt as if the course in the past few days. Pt Subjective Complaint: shortness of breath Onset (ago): day(s) (4) Context: recent illness Severity: mild, moderate Consistency/Duration: constant, gradually worsening Improves with: oxygen, bronchodilators Worsens with: exertion, movement Known history of: COPD Associated symptoms: Reports: wheezing, sputum production Treatment prior to arrival: none Cough present: Yes Cough Description: Involuntary, Non-Productive Cough Frequency: Persistent Sputum production: No Sputum Amount: None - Related Data Home oxygen amount: 2 liters Home Medications Medication Instructions Recorded Confirmed ALPRAZolam [Xanax 0.5 MG Tablet] 0.5 mg PO DAILY PRN 02/11/15 07/23/16 Atorvastatin Calcium [Lipitor] 20 mg PO QAM 02/11/15 07/23/16 FLUoxetine HCl [Prozac] 40 mg PO QAM 02/11/15 07/23/16 Hydrocodone/Acetaminophen [[place] 1 tab PO DAILY PRN 02/11/15 07/23/16 5-325 Tablet] Levothyroxine [Synthroid] 225 mcg PO QAM 02/11/15 07/23/16 Budesonide/Formoterol 80/4.5 1 puff IH BID 05/12/15 07/23/16 [Symbicort 80/4.5] Calcium Carbonate [Calcium] 500 - 1,000 mg PO DAILY 07/23/16 07/23/16 Roflumilast [Daliresp] 500 mcg PO DAILY 07/23/16 07/23/16 Tiotropium [place] [Spiriva 1 puff IH DAILY 07/23/16 07/23/16 Respimat] Previous Rx's Medication Instructions Recorded Albuterol Sulfate [Proair 2 puff IH Q6H PRN #2 aer.pow.ba 02/13/15 Respiclick] rOPINIRole [Requip] 1 mg PO HS #30 tablet 07/07/15 Albuterol Neb [AccuNeb] 1.25 mg IH Q4HR 30 Days mls 07/25/16 Aspirin Enteric Coated [Aspirin EC] 81 mg PO DAILY #30 tablet. 07/25/16 Furosemide [Lasix] 60 mg PO BID #90 tablet 07/25/16 GuaiFENesin ER [Mucinex] 600 mg PO BID #10 tbbp.12hr 07/25/16 Lisinopril [Zestril] 40 mg PO DAILY #30 tablet 07/25/16 Potassium Chloride 10 meq PO DAILY #0 07/25/16 levoFLOXacin [Levaquin] 500 mg PO DAILY #4 tablet 07/25/16 predniSONE [PredniSONE] 10 mg PO AD #45 tablet 07/25/16 Allergies Allergy/AdvReac Type Severity Reaction Status Date / Time Temazepam [From Restoril] Allergy Hives Verified 05/12/15 19:54 All systems ED: reviewed and negative except as stated. Constitutional: Denies: fever, chills, weakness Cardiovascular: Denies: chest pain, dyspnea on exertion, edema, syncope Respiratory: Reports: cough, dyspnea, wheezes. Denies: hemoptysis, sputum production Gastrointestinal: Denies: abdominal pain, nausea, vomiting Genitourinary: Denies: urgency, dysuria Neurological: Denies: headache Past Medical History - Past Medical History Attestation: Yes The following information was validated with the patient. Source: patient Medical history: Reports: arthritis, CHF, COPD, GERD, hyperlipidemia, hypertension, osteoporosis, thyroid disease, venous stasis, other Surgical history: Reports: hysterectomy Psychiatric history: Reports: anxiety, depression, other [employer] history: Reports: non-contributory - Social History Smoking Status: Former smoker Smokeless Tobacco Status: No Alcohol use: Reports: none Drug use: Reports: none Physical Exam - General Limitations: no limitations General appearance: alert, in distress (Respiratory) - Head Head exam: atraumatic, normocephalic, normal inspection - Eye Eye exam: Present: normal appearance, PERRL, EOMI - ENT ENT exam: normal exam, normal oropharynx, mucous membranes moist - Neck Neck exam: Present: normal inspection, full ROM, trachea midline - Chest Chest inspection: Present: normal inspection, symmetric chest wall rise - Respiratory Respiratory exam: Present: respiratory distress (moderate), wheezes, accessory muscle use - Cardiovascular Cardiovascular exam: Present: regular rate - Abdominal Exam Abdominal exam: Present: soft, Non-Tender. Absent: tenderness, distention, guarding, rebound, rigidity - Extremities Exam Extremities exam: Present: normal inspection, full ROM. Absent: tenderness, pedal edema Course - Reevaluation(s) Reevaluation #1: [place] or short of breath at this time. Given the patient's symptoms and dyspnea on exertion, we will admit the patient to hospice for COPD exacerbation. The patient still continually denying any chest pain or any other symptoms. The patient does overall state that she feels better. Given the patient's moderate shortness of breath at this time, we will get the patient to hospital service. Time: 20:48 Vital Signs Temperature 98.5 F 01/24/17 19:57 Pulse Rate 65 01/24/17 19:57 Respiratory Rate 20 01/24/17 19:57 Blood Pressure 159/87 01/24/17 19:57 O2 Sat by Pulse Oximetry 97 01/24/17 19:57 Temperature 98.5 F 01/24/17 19:57 Pulse Rate 61 01/24/17 20:35 Respiratory Rate 20 01/24/17 20:20 Blood Pressure 165/74 01/24/17 20:35 O2 Sat by Pulse Oximetry 100 01/24/17 20:35 Oxygen Delivery Oxygen Delivery Aerosol Mask Shortness of Breath/Dyspnea - [place] Narrative Medical decision making narrative: Patient's chest x-ray and labwork reveals no acute process. This appears to be a COPD exacerbation. Given the patient's extensive shortness of breath, we will admit the patient to the hospitalist. Accepted by Dr. Pepe. - Lab Data Lab results reviewed: Yes I reviewed the patient's lab results. Result diagrams: 01/24/17 20:52 Lab Results 01/24/17 01/24/17 Range/Units 20:52 20:52 WBC 9.2 (4.3-11.1) K/mcL RBC 4.86 (3.82-4.97) M/mcL Hgb 13.0 (11.5-15.4) g/dL Hct 41.7 (35.3-44.9) % MCV 85.8 (83.0-100.0) fL MCH 26.7 L (28.0-33.3) pg MCHC 31.2 L (31.6-35.5) g/dL RDW 14.3 (11.5-14.5) % Plt Count 282 (140-400) K/mcL MPV 10.1 (9.4-12.4) fL Immature Gran % 0.2 (0-4) % Seg Neutrophils % 63.9 % Lymphocytes % 20.9 % Monocytes % 10.4 % Eosinophils % 3.9 % Basophils % 0.7 % Neutrophils # 5.9 (1.6-8.9) K/mcL Lymphocytes # 1.9 (0.6-4.6) K/mcL Monocytes # 1.0 (0.0-1.3) K/mcL Eosinophils # 0.4 (0.0-0.6) K/mcL Basophils # 0.1 (0.0-0.2) K/mcL Specimen Rejected Hemolyzed - Radiology Data Radiology results reviewed: Yes I reviewed the patient's radiology results. - EKG Data EKG attestation: Yes I reviewed and interpreted this EKG. EKG results narrative: Heart rate 62 bpm. DC interval 159 ms. QTc 443 ms. Normal axis. Normal sinus rhythm. No ST elevation or ST depression noted. EKG motor parents to EKG from 07/23/2016.
[2017-01-24 20:59] LABS: Basophils # 0.1 K/mcL (0.0-0.2); Basophils % 0.7 %; Eosinophils # 0.4 K/mcL (0.0-0.6); Eosinophils % 3.9 %; Hematocrit 41.7 % (35.3-44.9); Immature Granulocytes % 0.2 % (0-4); Lymphocytes # 1.9 K/mcL (0.6-4.6); Lymphocytes % 20.9 %; Mean Corpuscular HGB Conc 31.2 g/dL (31.6-35.5); Mean Corpuscular Hemoglobin 26.7 pg (28.0-33.3); Mean Corpuscular Volume 85.8 fL (83.0-100.0); Mean Platelet Volume 10.1 fL (9.4-12.4); Monocytes % 10.4 %; Neutrophils # 5.9 K/mcL (1.6-8.9); Platelet Count 282 K/mcL (140-400); Red Blood Count 4.86 M/mcL (3.82-4.97); Red Cell Distribution Width 14.3 % (11.5-14.5); Segmented Neutrophils % 63.9 %
[2017-01-24 22:02] LABS: BUN/Creatinine Ratio 11 (6-26); Blood Urea Nitrogen 8 mg/dL (7-20); Calcium 9.2 mg/dL (8.6-10.8); Carbon Dioxide 24 mEq/L (19-29); Chloride 104 mEq/L (98-109); Glucose 153 mg/dL (70-99); Osmolality,Calculated 291 (280-300); Potassium 3.7 mEq/L (3.5-4.5); Sodium 140 mEq/L (136-145); eGFR For African Americans > 60 (> 60); eGFR For Non-African Americans > 60 (> 60)
--- NOTE | 2017-01-24 22:55 | Internal Med History&Physical ---
Date of Encounter: 02/03/17 Time of Encounter: 22:52 Assessment and Plan (1) Acute exacerbation of chronic obstructive airways disease Status: Acute I will start the patient on Solu-Medrol 60 mg Q6 hours, [id number] nebulizer treatment for hours, azithromycin for acute bronchitis. (2) Diastolic congestive heart failure Status: Chronic Patient has mild diastolic congestive heart failure. Will start patient on Lasix 20 mg IV daily. Qualifiers: Congestive heart failure chronicity: chronic Qualified Code(s): I50.32 - Chronic diastolic (congestive) heart failure Internal Medicine - H&P: HPI Chief complaint: sob History of present illness: Ms. Guadalupe is a 57 year old female with history of COPD on 2 L of home oxygen, hypertension, presents to the emergency room today with the main complain of shortness of breath. For the past 2 days patient has been having progressive shortness of breath to the point where she is short of breath with any exertion , productive cough of clear sputum and chest wheezing. She has been taking her nebulizer treatments every 4 hours. She has also been noticing swelling on both lower extremities. She denies any fevers or chills. She quit smoking 2 years ago. Past Med Surg Social Fam HX - Past Medical History Medical history: arthritis, CHF, COPD, GERD, hyperlipidemia, hypertension, thyroid disease, venous stasis, other Psychiatric history: anxiety, depression - Past Surgical History Surgical History: hysterectomy - Social History Smoking Status: Former smoker Smokeless Tobacco Status: No Alcohol use: none Drug use: none - Family History Mother Living Status: Age at : 68 Cause of : Sepsis; "Complication from brain tumor surgery" Hx Family Cardiac Disorders: Yes (HTN) Hx Family Respiratory Disorders: No Hx Family Cancer: No Hx Family GI Disorders: No Hx Family Genitourinary Disorders: No Hx Family Endocrine Disorder: No Hx Family Musculoskeletal Disorders: No Hx Family Neuromuscular Disorders: No Hx Family Neurologic Disorders: No Hx Family HEENT Disorders: No Hx Family Autoimmune Disorders: No Hx Family Reproductive Disorders: No Hx Family Psychosocial Disorders: No Hx Family Medical Disorders: No Father Living Status: Still Living Hx Family Cardiac Disorders: Yes (HLD) Hx Family Cancer: Yes (KIDNEY CANCER) Internal Medicine - H&P: Meds ALPRAZolam [Xanax 0.5 MG Tablet] 0.5 mg PO DAILY PRN 02/11/15 [History] Atorvastatin Calcium [Lipitor] 20 mg PO QAM 02/11/15 [History] FLUoxetine HCl [Prozac] 40 mg PO QAM 02/11/15 [History] Hydrocodone/Acetaminophen [[place] 5-325 Tablet] 1 tab PO DAILY PRN 02/11/15 [ History] Albuterol Sulfate [Proair Respiclick] 2 puff IH Q6H PRN #2 aer.pow.ba 02/13/15 [ Rx] Budesonide/Formoterol 80/4.5 [Symbicort 80/4.5] 1 puff IH BID 05/12/15 [History ] rOPINIRole [Requip] 1 mg PO HS #30 tablet 07/07/15 [Rx] Calcium Carbonate [Calcium] 500 - 1,000 mg PO DAILY 07/23/16 [History] Roflumilast [Daliresp] 500 mcg PO DAILY 07/23/16 [History] Tiotropium [place] [Spiriva Respimat] 1 puff IH DAILY 07/23/16 [History] Albuterol Neb [AccuNeb] 1.25 mg IH Q4HR 30 Days mls 07/25/16 [Rx] Aspirin Enteric Coated [Aspirin EC] 81 mg PO DAILY #30 tablet. 07/25/16 [Rx] Furosemide [Lasix] 60 mg PO BID #90 tablet 07/25/16 [Rx] Lisinopril [Zestril] 40 mg PO DAILY #30 tablet 07/25/16 [Rx] Potassium Chloride 10 meq PO DAILY #0 07/25/16 [Rx] Levothyroxine Sodium [Levoxyl] 250 mcg PO AD 01/25/17 [History] Meloxicam 15 mg PO DAILY 01/25/17 [History] Oxybutynin Chloride [Ditropan Xl] 5 mg PO DAILY 01/25/17 [History] predniSONE [PredniSONE] 40 mg PO DAILY #10 tablet 01/26/17 [Rx] 3 Allergy/AdvReac Type Severity Reaction Status Date / Time Temazepam [From Restoril] Allergy Hives Verified 05/12/15 19:54 All Systems PM: A 10-system review of systems was performed and is negative for pertinent findings except as documented above in the HPI. - Constitutional Vitals: Temp Pulse Resp BP Pulse Ox 98.1 F 63 19 148/72 96 01/24/17 22:30 01/24/17 22:30 01/24/17 22:30 01/24/17 22:30 01/24/17 22:30 Exam: Gen.: patient is alert oriented times 3 not in distress cardiac: Normal S1, S2, no additional sounds or murmurs chest: Diminished air entry. Expiratory wheeze Abdomen: Soft, nontender. No rebound lower extremity Lax calf muscles 1+ swelling Neuro: no focal deficits Internal Med - H&P Results - Labs CBC & Chem 7: 01/25/17 03:14 01/25/17 03:14 Labs: BMP 01/24/17 21:37 Sodium 140 Potassium 3.7 Chloride 104 Carbon Dioxide 24 BUN 8 Creatinine 0.72 Glucose 153 H Calcium 9.2
[2017-01-24] MEDS ORDERED: Furosemide 20 MG/2 ML VIAL IVP SCH (23:00)
[2017-01-24] MEDS: Ipratropium/Albuterol Neb 3 ML IH SCH (23:08)
[2017-01-24] MEDS: Furosemide 40 MG/4 ML VIAL IVP SCH (23:43)
[2017-01-24] MEDS: Azithromycin 500 MG in D5% in Water 250 ML IVPB SCH (23:44)
[2017-01-24] MEDS: methylPREDNISolone 125 MG/2 ML VIAL IVP SCH (23:45)
[2017-01-25] MEDS: Ipratropium/Albuterol Neb 3 ML IH SCH ×6 (03:54→23:45)
[2017-01-25 03:59] LABS: Basophils % 0.3 %; Eosinophils % 0.1 %; Hematocrit 42.4 % (35.3-44.9); Hemoglobin 13.4 g/dL (11.5-15.4); Immature Granulocytes % 0.4 % (0-4); Lymphocytes # 0.4 K/mcL (0.6-4.6); Lymphocytes % 4.2 %; Mean Corpuscular HGB Conc 31.6 g/dL (31.6-35.5); Mean Corpuscular Hemoglobin 26.2 pg (28.0-33.3); Mean Corpuscular Volume 82.8 fL (83.0-100.0); Mean Platelet Volume 10.4 fL (9.4-12.4); Monocytes # 0.1 K/mcL (0.0-1.3); Monocytes % 1.1 %; Neutrophils # 9.2 K/mcL (1.6-8.9); Platelet Count 309 K/mcL (140-400); Red Blood Count 5.12 M/mcL (3.82-4.97); Red Cell Distribution Width 14.3 % (11.5-14.5); Segmented Neutrophils % 93.9 %
[2017-01-25 04:10] LABS: BUN/Creatinine Ratio 11 (6-26); Blood Urea Nitrogen 8 mg/dL (7-20); Calcium 9.5 mg/dL (8.6-10.8); Carbon Dioxide 29 mEq/L (19-29); Chloride 102 mEq/L (98-109); Glucose 179 mg/dL (70-99); Magnesium 1.9 mg/dL (1.6-2.6); Osmolality,Calculated 295 (280-300); Potassium 3.6 mEq/L (3.5-4.5); Sodium 141 mEq/L (136-145); eGFR For African Americans > 60 (> 60); eGFR For Non-African Americans > 60 (> 60)
[2017-01-25] MEDS: methylPREDNISolone 125 MG/2 ML VIAL IVP SCH ×4 (05:50→22:50)
[2017-01-25] MEDS: *HR* Enoxaparin 40 MG/0.4 ML SYRINGE SQ SCH (05:50)
[2017-01-25] MEDS: Aspirin Enteric Coated 81 MG Tablet PO SCH (09:28)
[2017-01-25] MEDS: Furosemide 40 MG/4 ML VIAL IVP SCH (09:28)
--- NOTE | 2017-01-25 10:09 | Internal Med Progress Note ---
<Shun Sahu - Last Filed: 01/25/17 16:38> Date of Encounter: 01/25/17 Time of Encounter: 09:50 - Assessment and plan (1) Acute exacerbation of chronic obstructive airways disease Current Visit: No Status: Acute Assessment and plan: - 2-day history of worsening dyspnea prior to admission. - Continue azithromycin, bronchodilators and supplement oxygen. - Decrease Solu-Medrol to 40 mg q8H. - Resume home dose Symbicort and Daliresp. (2) Diastolic congestive heart failure Current Visit: Yes Status: Chronic Assessment and plan: - Echocardiogram on 07/23/16 found LVEF 60% with evidence of mild LV diastolic dysfunction. - Continue Lasix. - Strict I/O and daily weight. Qualifiers: Congestive heart failure chronicity: chronic Qualified Code(s): I50.32 - Chronic diastolic (congestive) heart failure (3) Hypothyroid Current Visit: No Status: Chronic Assessment and plan: - Continue home dose Synthroid. Qualifiers: Hypothyroidism type: unspecified Qualified Code(s): E03.9 - Hypothyroidism , unspecified (4) Obstructive sleep apnea Current Visit: No Status: Chronic Assessment and plan: - CPAP use at night. (5) Morbid obesity Current Visit: No Status: Acute Assessment and plan: - BMI 44. (6) DVT prophylaxis Current Visit: No Status: Acute Assessment and plan: - Continue SQ Lovenox - Subjective Interval history: Patient was seen and examined this morning. Patient reports breathing and non- productive cough improve compared to on admission. Patient denies fever, chills , chest pain, abdominal pain, nausea, vomiting, diarrhea. - Constitutional Vitals: Temp Pulse Resp BP Pulse Ox 98.4 F 73 16 147/70 92 01/25/17 06:34 01/25/17 06:34 01/25/17 07:38 01/25/17 06:34 01/25/17 07:38 General appearance: Present: cooperative, A&O X 3, no acute distress, obese, answers questions appropriately - Head Head exam: Present: atraumatic, normocephalic - Eye Eye exam: Present: EOMI, PERRL, conjuntiva pink, sclera anicteric - Neck Neck exam general surgery: Present: supple, trachea midline. Absent: lymphadenopathy - Respiratory Respiratory exam: Present: wheezes. Absent: accessory muscle use, rales, rhonchi - Cardiovascular Cardiovascular exam: Present: RRR, +S1, +S2. Absent: diastolic murmur, gallop, rubs, systolic murmur - GI/Abdominal GI/Abdominal exam: Present: normal bowel sounds, soft, no peritoneal signs. Absent: tenderness - Extremities Exam Extremities exam: Present: warm, radial pulses palpable and symmetrical. Absent : calf tenderness, cyanotic, pedal edema - Neurological Exam Neurological exam: Present: oriented X3, no focal deficits. Absent: pronater drift, facial droop, speech deficit - Skin Skin exam: Present: dry, intact, warm Internal Medicine: Result - Labs CBC & Chem 7: 01/25/17 03:14 01/25/17 03:14 Labs: Short CBC 01/25/17 Range/Units 03:14 WBC 9.8 (4.3-11.1) K/mcL Hgb 13.4 (11.5-15.4) g/dL Hct 42.4 (35.3-44.9) % Plt Count 309 (140-400) K/mcL Neutrophils # 9.2 H (1.6-8.9) K/mcL BMP 01/25/17 03:14 Sodium 141 Potassium 3.6 Chloride 102 Carbon Dioxide 29 BUN 8 Creatinine 0.75 Glucose 179 H Calcium 9.5 Consult Discharge Plan - Plan Referrals: Yves Chapa MD [Primary Care Provider] - 02/03/17 3:15 pm <Curry Gonzalez - Last Filed: 01/25/17 17:12> Date of Encounter: 01/25/17 - Assessment and plan (1) Acute on chronic respiratory failure Current Visit: Yes Status: Acute Qualifiers: Respiratory failure complication: hypoxia Qualified Code(s): J96.21 - Acute and chronic respiratory failure with hypoxia (2) Acute exacerbation of chronic obstructive airways disease Current Visit: No Status: Acute (3) Diastolic congestive heart failure Current Visit: Yes Status: Chronic Qualifiers: Congestive heart failure chronicity: chronic Qualified Code(s): I50.32 - Chronic diastolic (congestive) heart failure (4) Morbid obesity Current Visit: No Status: Acute (5) Fasting hyperglycemia Current Visit: Yes Status: Acute - Constitutional Vitals: Temp Pulse Resp BP Pulse Ox 98.0 F 79 15 154/82 93 01/25/17 16:00 01/25/17 16:00 01/25/17 16:00 01/25/17 16:00 01/25/17 16:00 Internal Medicine: Result - Labs CBC & Chem 7: 01/25/17 03:14 01/25/17 03:14 Labs: Short CBC 01/25/17 Range/Units 03:14 WBC 9.8 (4.3-11.1) K/mcL Hgb 13.4 (11.5-15.4) g/dL Hct 42.4 (35.3-44.9) % Plt Count 309 (140-400) K/mcL Neutrophils # 9.2 H (1.6-8.9) K/mcL BMP 01/25/17 03:14 Sodium 141 Potassium 3.6 Chloride 102 Carbon Dioxide 29 BUN 8 Creatinine 0.75 Glucose 179 H Calcium 9.5 - Attending Attestation I examined this patient and my medical decision-making was reviewed with the Resident Physician on 01/25/17. I agree with the documented findings, disposition and treatment plan as described except to the extent set forth below. Ms Guadalupe is currently admitted for acute exac COPD. She remains moderate to high risk due to potential for worsening resp status. Ms Guadalupe is beginning to feel a little better. No CP. No fever or chills. No GI issues. Exam Alert Comfortable Mucus membranes dry Heart not tachy Scant end exp wheeze Abd neg I/P 1. COPD 2. acute on chronic resp failure Further diagnoses and plan as above.
[2017-01-25] MEDS: Budesonide/Formoterol 80/4.5 MDI IH SCH ×2 (11:11→19:38)
[2017-01-25] MEDS: FLUoxetine 20 MG CAPSULE PO SCH (11:26)
[2017-01-25] MEDS: Lisinopril 20 MG TABLET PO SCH (11:27)
--- NOTE | 2017-01-25 14:09 | Electrocardiograph Report ---
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
[2017-01-25] MEDS ORDERED: Acetaminophen 325 MG TABLET PO ONE (20:03)
[2017-01-25] MEDS ORDERED: rOPINIRole 1 MG TABLET PO SCH (21:00)
[2017-01-25] MEDS: Azithromycin 500 MG in D5% in Water 250 ML IVPB SCH (22:50)
[2017-01-26] MEDS: Ipratropium/Albuterol Neb 3 ML IH SCH ×3 (03:54→11:27)
[2017-01-26] MEDS: *HR* Enoxaparin 40 MG/0.4 ML SYRINGE SQ SCH (05:25)
[2017-01-26 06:54] VITALS: BP 137/73
[2017-01-26] MEDS: Budesonide/Formoterol 80/4.5 MDI IH SCH (07:30)
[2017-01-26] MEDS: FLUoxetine 20 MG CAPSULE PO SCH (09:45)
[2017-01-26] MEDS: Lisinopril 20 MG TABLET PO SCH (09:45)
[2017-01-26] MEDS: methylPREDNISolone 125 MG/2 ML VIAL IVP SCH (09:46)
[2017-01-26] MEDS: Aspirin Enteric Coated 81 MG Tablet PO SCH (09:46)
[2017-01-26] MEDS: Furosemide 40 MG/4 ML VIAL IVP SCH (09:46)
--- NOTE | 2017-01-26 12:00 | Discharge Summary ---
<Shun Sahu - Last Filed: 01/26/17 13:16> Date of Encounter: 01/26/17 Time of Encounter: 10:30 - Discharge Diagnosis (1) Acute exacerbation of chronic obstructive airways disease Priority: Primary Status: Acute (2) Diastolic congestive heart failure Priority: Secondary Status: Chronic Qualifiers: Congestive heart failure chronicity: chronic Qualified Code(s): I50.32 - Chronic diastolic (congestive) heart failure (3) Hypothyroid Priority: Secondary Status: Chronic Qualifiers: Hypothyroidism type: unspecified Qualified Code(s): E03.9 - Hypothyroidism , unspecified (4) Obstructive sleep apnea Priority: Secondary Status: Chronic (5) Morbid obesity Priority: Secondary Status: Acute - Discharge Medications Prescriptions: predniSONE [PredniSONE] 40 mg PO DAILY #10 tablet Home Medications: ALPRAZolam [Xanax 0.5 MG Tablet] 0.5 mg PO DAILY PRN 02/11/15 [History] Atorvastatin Calcium [Lipitor] 20 mg PO QAM 02/11/15 [History] FLUoxetine HCl [Prozac] 40 mg PO QAM 02/11/15 [History] Hydrocodone/Acetaminophen [[place] 5-325 Tablet] 1 tab PO DAILY PRN 02/11/15 [ History] Albuterol Sulfate [Proair Respiclick] 2 puff IH Q6H PRN #2 aer.[email or web address] 02/13/15 [ Rx] Budesonide/Formoterol 80/4.5 [Symbicort 80/4.5] 1 puff IH BID 05/12/15 [History ] rOPINIRole [Requip] 1 mg PO HS #30 tablet 07/07/15 [Rx] Calcium Carbonate [Calcium] 500 - 1,000 mg PO DAILY 07/23/16 [History] Roflumilast [Daliresp] 500 mcg PO DAILY 07/23/16 [History] Tiotropium [place] [Spiriva Respimat] 1 puff IH DAILY 07/23/16 [History] Albuterol Neb [AccuNeb] 1.25 mg IH Q4HR 30 Days mls 07/25/16 [Rx] Aspirin Enteric Coated [Aspirin EC] 81 mg PO DAILY #30 tablet.dr 07/25/16 [Rx] Furosemide [Lasix] 60 mg PO BID #90 tablet 07/25/16 [Rx] Lisinopril [Zestril] 40 mg PO DAILY #30 tablet 07/25/16 [Rx] Potassium Chloride 10 meq PO DAILY #0 07/25/16 [Rx] Levothyroxine Sodium [Levoxyl] 250 mcg PO AD 01/25/17 [History] Meloxicam 15 mg PO DAILY 01/25/17 [History] Oxybutynin Chloride [Ditropan Xl] 5 mg PO DAILY 01/25/17 [History] predniSONE [PredniSONE] 40 mg PO DAILY #10 tablet 01/26/17 [Rx] Allergies/Adverse Reactions: 3 Allergy/AdvReac Type Severity Reaction Status Date / Time Temazepam [From Restoril] Allergy Hives Verified 05/12/15 19:54 Procedures/tests Complete & Pending: Procedures Performed prior 72 hours Category Date Time Status ECG 12 lead ECG [ECG] Routine Y 01/24/17 20:02 Completed Date of admission: 01/24/17 22:49 Primary care physician: Yves Chapa MD Discharging clinician: Shun Sahu Anticipated date of discharge: 01/26/17 - Patient Status Disposition: Home, Self-Care Condition: Fair Overall status at discharge: patient is progressing back to baseline - Discharge Instructions Instructions: Heart Failure (DC), Hypothyroidism (DC), Chronic Obstructive Pulmonary Disease (DC), Chronic Hypertension (DC), Cigarette Smoking and Your Health, It Assistant (GEN) Follow Up With: Yves Chapa MD [Primary Care Provider] - 02/03/17 3:15 pm Additional Instructions: Please take prednisone 40 mg by mouth daily for 5 more days. Please continue your supplemental oxygen and COPD medications including inhalers , Symbicort and Daliresp. Please follow up with your primary care provider on 02/03/17. Please stay away from second-hand smoking. Please come back to emergency room if your breathing gets worse. - Diet and Activity Activity: increase activity as tolerated Diet: low fat, low cholesterol, low salt diet Hospital course: Ms. Guadalupe is a 57 year old female with PMH of COPD on 2L home oxygen and HTN who presented to ED with 2-day history of worsening shortness of breath. CXR found no consolidation or pleural effusion. Patient was admitted on 01/24/17 for acute exacerbation of COPD and started on Solu-Medrol, azithromycin and bronchodilators. Patient's respiratory status improves since with decrease in dyspnea and cough. Patient reports feeling good and likes to go home. Given her improvement on respiratory status and remaining stable hemodynamically, will discharge patient home with 5-day course of Prednisone 40 mg PO daily. Patient was instructed to continue supplemental oxygen and home COPD medications including inhalers, Symbicort and Daliresp. Patient was also instructed to stay away from second-hand smoking and come back to emergency room if your breathing gets worse. Patient will follow up with her PCP Dr. Chapa on 02/03/17. Patient verbalized her understanding and agreed with the discharge plan. All questions answered. - Time Spent with Patient Total time spent providing and/or coordinating discharge services: Greater than 30 minutes - Constitutional Vitals: Temp Pulse Resp BP Pulse Ox 97.6 F 67 16 137/73 95 01/26/17 06:51 01/26/17 06:51 01/26/17 11:28 01/26/17 06:51 01/26/17 11:28 General appearance: Present: cooperative, A&O X 3, no acute distress, obese, answers questions appropriately - Head Head exam: Present: atraumatic, normocephalic - Eye Eye exam: Present: EOMI, conjuntiva pink, sclera anicteric - Neck Neck exam general surgery: Present: supple, trachea midline. Absent: lymphadenopathy - Respiratory Respiratory exam: Present: CTAB. Absent: accessory muscle use, rales, rhonchi - Cardiovascular Cardiovascular exam: Present: RRR, +S1, +S2. Absent: diastolic murmur, gallop, rubs, systolic murmur - GI/Abdominal GI/Abdominal exam: Present: normal bowel sounds, soft, no peritoneal signs. Absent: tenderness - Extremities Exam Extremities exam: Present: warm, radial pulses palpable and symmetrical. Absent : calf tenderness, cyanotic - Neurological Exam Neurological exam: Present: oriented X3, no focal deficits. Absent: facial droop, speech deficit - Skin Skin exam: Present: dry, intact, warm <Janeth,Samm P - Last Filed: 01/26/17 16:53> Date of Encounter: 01/26/17 Procedures/tests Complete & Pending: Procedures Performed prior 72 hours Category Date Time Status ECG 12 lead ECG [ECG] Routine Y 01/24/17 20:02 Completed Date of admission: 01/24/17 22:49 Primary care physician: Yves Chapa MD Hospital course: Ms. Guadalupe is a 57 year old female - Time Spent with Patient Total time spent providing and/or coordinating discharge services: - Constitutional Vitals: Temp Pulse Resp BP Pulse Ox 97.6 F 67 16 137/73 95 01/26/17 06:51 01/26/17 06:51 01/26/17 11:28 01/26/17 06:51 01/26/17 11:28 - Attending Attestation I examined this patient and my medical decision-making was reviewed with the Resident Physician. I agree with the documented findings, disposition and treatment plan as described except to the extent set forth below.
== END 2017-01-26 13:30 | disposition home or self-care (01) | DRG 190 ==
LOC: 2NENU 19:56 → EMEROO 19:56 → 2NENU 22:09 → SUATTDRO 22:49
PROVIDERS: ADMIT Hospitalist; ATTEND Internal Medicine

== ENCOUNTER 2017-04-01 17:46 | Observation (INO) ==
[2017-04-01] MEDS ORDERED: Aspirin 325 MG TABLET PO ONE (18:02)
[2017-04-01] MEDS ORDERED: Ipratropium/Albuterol Neb 3 ML IH ONE (18:27)
[2017-04-01] MEDS ORDERED: predniSONE 20 MG TABLET PO ONE (18:27)
[2017-04-01 18:36] LABS: Basophils % 0.4 %; Eosinophils % 2.6 %; Hematocrit 41.6 % (35.3-44.9); Hemoglobin 13.1 g/dL (11.5-15.4); Immature Granulocytes % 0.3 % (0-4); Lymphocytes % 9.5 %; Mean Corpuscular HGB Conc 31.5 g/dL (31.6-35.5); Mean Corpuscular Hemoglobin 26.5 pg (28.0-33.3); Mean Corpuscular Volume 84.2 fL (83.0-100.0); Platelet Count 255 K/mcL (140-400); Red Blood Count 4.94 M/mcL (3.82-4.97); Red Cell Distribution Width 15.1 % (11.5-14.5); Segmented Neutrophils % 79.2 %
[2017-04-01 18:37] LABS: Basophils # 0.1 K/mcL (0.0-0.2); Eosinophils # 0.3 K/mcL (0.0-0.6); Lymphocytes # 1.2 K/mcL (0.6-4.6); Neutrophils # 10.3 K/mcL (1.6-8.9)
[2017-04-01 18:57] LABS: BUN/Creatinine Ratio 10 (6-26); Blood Urea Nitrogen 7 mg/dL (6-20); Calcium 9.3 mg/dL (8.6-10.3); Carbon Dioxide 28 mEq/L (23-29); Chloride 105 mEq/L (98-107); Glucose 190 mg/dL (70-105); Osmolality,Calculated 295 (280-300); Potassium 3.1 mEq/L (3.5-5.1); Sodium 141 mEq/L (136-145); eGFR For African Americans > 60 (> 60); eGFR For Non-African Americans > 60 (> 60)
[2017-04-01] MEDS ORDERED: Albuterol 2.5 MG/3 ML NEBULIZER IH ONE (20:22)
--- NOTE | 2017-04-01 20:40 | Emergency Department Note ---
Disposition Clinical Impression: COPD exacerbation Disposition: Admitted As Inpatient Condition: Good Time of Disposition: 22:50 SOB HPI - General Chief Complaint: ED Shortness of Breath/Dyspnea Stated Complaint: "sob, chest tightness" Time Seen by Provider: 04/01/17 17:59 Source: patient Limitations: no limitations Nursing Notes Reviewed: Yes Vital Signs Reviewed: Yes - History of Present Illness 57-year-old female who complains of shortness of breath. Patient has a history of COPD. Patient complains of worsening shortness of breath over the past 2 days. She complains of a cough that is nonproductive. Patient also complains of sinus pressure. Patient is on oxygen at 2 L at home. Patient also has a history of CHF - Related Data Home Medications Medication Instructions Recorded Confirmed ALPRAZolam [Xanax 0.5 MG Tablet] 0.5 mg PO DAILY PRN 02/11/15 04/01/17 Atorvastatin Calcium [Lipitor] 20 mg PO QAM 02/11/15 04/01/17 FLUoxetine HCl [Prozac] 40 mg PO QAM 02/11/15 04/01/17 Hydrocodone/Acetaminophen [[place] 1 tab PO BID PRN 02/11/15 04/01/17 5-325 Tablet] Budesonide/Formoterol 80/4.5 1 puff IH BID 05/12/15 04/01/17 [Symbicort 80/4.5] Roflumilast [Daliresp] 500 mcg PO DAILY 07/23/16 04/01/17 Tiotropium [place] [Spiriva 1 puff IH DAILY 07/23/16 04/01/17 Respimat] Levothyroxine Sodium [Levoxyl] 250 mcg PO [id number] 01/25/17 04/01/17 Oxybutynin Chloride [Ditropan Xl] 5 mg PO DAILY 01/25/17 04/01/17 Albuterol Neb [AccuNeb] 1.25 mg IH Q4HR PRN 04/01/17 04/01/17 Fluticasone Propionate Nasal 50 mcg NS DAILY 04/01/17 04/01/17 [Flonase] Furosemide [Lasix] 40 mg PO DAILY 04/01/17 04/01/17 Levothyroxine Sodium [Synthroid] 200 mcg PO HERRERA 04/01/17 04/01/17 rOPINIRole [Requip] 2 mg PO HS 04/01/17 04/01/17 Previous Rx's Medication Instructions Recorded Albuterol Sulfate [Proair 2 puff IH Q6H PRN #2 aer.pow.ba 02/13/15 Respiclick] Aspirin Enteric Coated [Aspirin EC] 81 mg PO DAILY #30 tablet. 07/25/16 Lisinopril [Zestril] 40 mg PO DAILY #30 tablet 07/25/16 Potassium Chloride 10 meq PO DAILY #0 07/25/16 Azithromycin [Azithromycin 6-Tab 250 mg PO PER PKG DI #6 tab 04/03/17 Pack] predniSONE [PredniSONE] 40 mg PO DAILY #6 tablet 04/03/17 Allergies Allergy/AdvReac Type Severity Reaction Status Date / Time Temazepam [From Restoril] Allergy Hives Verified 04/01/17 17:52 All systems ED: reviewed and negative except as stated. Review of Systems: As Per HPI Constitutional: Denies: fever, chills, weakness ENT ED: Reports: congestion Cardiovascular: Denies: chest pain, palpitations Respiratory: Reports: cough, dyspnea. Denies: wheezes Gastrointestinal: Denies: abdominal pain, nausea, vomiting, diarrhea Past Medical History - Past Medical History Attestation: Yes The following information was validated with the patient. 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 - Social History Smoking Status: Former smoker Smokeless Tobacco Status: No Alcohol use: Reports: none Drug use: Reports: none Physical Exam Vital Signs Temperature 98.6 F 04/01/17 17:49 Pulse Rate 83 04/01/17 17:49 Respiratory Rate 24 04/01/17 17:49 Blood Pressure 157/77 04/01/17 17:49 O2 Sat by Pulse Oximetry 97 04/01/17 17:49 Temperature 98.0 F 04/01/17 21:35 Pulse Rate 74 04/01/17 21:35 Respiratory Rate 18 04/01/17 22:48 Blood Pressure 160/79 04/01/17 21:35 O2 Sat by Pulse Oximetry 94 04/01/17 22:48 Oxygen Delivery Oxygen Delivery Nasal Cannula 57-year-old female who is alert and oriented 3 and in acute distress. Patient has conversational dyspnea and has increased work of breathing. Patient has decreased penetration to bilateral lower lung black. Patient is having difficulty taking deep breaths. No crackles or rales heard on auscultation. - General Limitations: no limitations General appearance: alert - Head Head exam: atraumatic, normocephalic, normal inspection - Eye Eye exam: Present: normal appearance, PERRL, EOMI - ENT ENT exam: normal exam, normal oropharynx, mucous membranes moist - Neck Neck exam: Present: normal inspection, full ROM, trachea midline - Chest Chest inspection: Present: normal inspection, symmetric chest wall rise - Respiratory Respiratory exam: Present: respiratory distress. Absent: wheezes - Cardiovascular Cardiovascular exam: Present: regular rate, normal rhythm, normal heart sounds - Abdominal Exam Abdominal exam: Present: soft, Non-Tender. Absent: tenderness, distention, guarding, rebound, rigidity - Extremities Exam Extremities exam: Present: normal inspection, full ROM, normal capillary refill. Absent: tenderness, pedal edema - Back Exam Back exam: Present: normal inspection, full ROM. Absent: tenderness, CVA tenderness (R), CVA tenderness (L) - Neurological Exam Neurological exam: Present: alert, oriented X3 - Psychiatric Psychiatric exam: Present: anxious - Skin Skin exam: Present: warm, dry, intact, normal color Course Vital Signs Temperature 98.6 F 04/01/17 17:49 Pulse Rate 83 04/01/17 17:49 Respiratory Rate 24 04/01/17 17:49 Blood Pressure 157/77 04/01/17 17:49 O2 Sat by Pulse Oximetry 97 04/01/17 17:49 Temperature 98.0 F 04/03/17 11:06 Pulse Rate 66 04/03/17 11:06 Respiratory Rate 15 04/03/17 11:06 Blood Pressure 116/55 04/03/17 11:06 O2 Sat by Pulse Oximetry 96 04/03/17 11:06 Oxygen Delivery Oxygen Delivery Nasal Cannula Shortness of Breath/Dyspnea - MDM Narrative Medical decision making narrative: Patient concerning for COPD exacerbation, CHF exacerbation, patient does not have any chest pain but has chest tightness and is also concerning for possible ACS/MN. Patient has no prior history of MN but has a history of CHF. Patient started on DuoNeb therapy and given prednisone by mouth. After 3 rounds of DuoNeb is patient's lung black are improved but still has heavy tightness and poor penetration to lower lung black. Patient is breathing easier and conversational dyspnea is decreased but she is still unable to take deep breaths. Patient is given the rest secondary to being very anxious after DuoNeb therapy. After reevaluation she was started on albuterol nebulizers 3. Patient is currently he lives in 2.5 L oxygen to maintain an O2 saturation of 92-94. Given no change in patient's lung sounds after treatment of DuoNeb and albuterol as necessary for patient to continue inpatient treatment for COPD exacerbation. Patient understands and agrees to treatment plan. Patient's lab values show an elevation of white count 12.9, patient has a hypokalemia at 3.1. Patient will be on potassium replacement therapy orally. Patient's BMP was negative for any elevations, patient's chest x-ray was clear any consolidations or pneumonia. Patient's EKG showed no signs ischemia and sinus rhythm at a rate of 79 beats minute. Patient is accepted for admission by hospitalist Dr. Gore. - Lab Data Lab results reviewed: Yes I reviewed the patient's lab results. Lab results narrative: Short CBC 04/01/17 Range/Units 18:30 WBC 12.9 H (4.3-11.1) K/mcL Hgb 13.1 (11.5-15.4) g/dL Hct 41.6 (35.3-44.9) % Plt Count 255 (140-400) K/mcL Neutrophils # 10.3 H (1.6-8.9) K/mcL BMP 04/01/17 Range/Units 18:30 Sodium 141 (136-145) mEq/L Potassium 3.1 L (3.5-5.1) mEq/L Chloride 105 (98-107) mEq/L Carbon Dioxide 28 (23-29) mEq/L BUN 7 (6-20) mg/dL Creatinine 0.71 (0.60-1.20) mg/dL Glucose 190 H (70-105) mg/dL Calcium 9.3 (8.6-10.3) mg/dL Cardiac Enzymes 04/01/17 Range/Units 18:30 Troponin I < 0.03 (< 0.04) ng/mL Result diagrams: 04/02/17 05:07 04/02/17 05:07 Lab Results 04/01/17 04/01/17 04/01/17 Range/Units 18:30 18:30 18:30 WBC 12.9 H (4.3-11.1) K/mcL RBC 4.94 (3.82-4.97) M/mcL Hgb 13.1 (11.5-15.4) g/dL Hct 41.6 (35.3-44.9) % MCV 84.2 (83.0-100.0) fL MCH 26.5 L (28.0-33.3) pg MCHC 31.5 L (31.6-35.5) g/dL RDW 15.1 H (11.5-14.5) % Plt Count 255 (140-400) K/mcL MPV 10.0 (9.4-12.4) fL Immature Gran % 0.3 (0-4) % Seg Neutrophils % 79.2 % Lymphocytes % 9.5 % Monocytes % 8.0 % Eosinophils % 2.6 % Basophils % 0.4 % Neutrophils # 10.3 H (1.6-8.9) K/mcL Lymphocytes # 1.2 (0.6-4.6) K/mcL Monocytes # 1.0 (0.0-1.3) K/mcL Eosinophils # 0.3 (0.0-0.6) K/mcL Basophils # 0.1 (0.0-0.2) K/mcL Sodium 141 (136-145) mEq/L Potassium 3.1 L (3.5-5.1) mEq/L Chloride 105 (98-107) mEq/L Carbon Dioxide 28 (23-29) mEq/L BUN 7 (6-20) mg/dL Creatinine 0.71 (0.60-1.20) mg/dL Est GFR ( Amer) > 60 (> 60) Est GFR (Non-Af Amer) > 60 (> 60) BUN/Creatinine Ratio 10 (6-26) Glucose 190 H (70-105) mg/dL Calculated Osmolality 295 (280-300) Calcium 9.3 (8.6-10.3) mg/dL Troponin I < 0.03 (< 0.04) ng/mL B-Natriuretic Peptide (Less than 100) pg/mL 04/01/17 Range/Units 18:30 WBC (4.3-11.1) K/mcL RBC (3.82-4.97) M/mcL Hgb (11.5-15.4) g/dL Hct (35.3-44.9) % MCV (83.0-100.0) fL MCH (28.0-33.3) pg MCHC (31.6-35.5) g/dL RDW (11.5-14.5) % Plt Count (140-400) K/mcL MPV (9.4-12.4) fL Immature Gran % (0-4) % Seg Neutrophils % % Lymphocytes % % Monocytes % % Eosinophils % % Basophils % % Neutrophils # (1.6-8.9) K/mcL Lymphocytes # (0.6-4.6) K/mcL Monocytes # (0.0-1.3) K/mcL Eosinophils # (0.0-0.6) K/mcL Basophils # (0.0-0.2) K/mcL Sodium (136-145) mEq/L Potassium (3.5-5.1) mEq/L Chloride (98-107) mEq/L Carbon Dioxide (23-29) mEq/L BUN (6-20) mg/dL Creatinine (0.60-1.20) mg/dL Est GFR ( Amer) (> 60) Est GFR (Non-Af Amer) (> 60) BUN/Creatinine Ratio (6-26) Glucose (70-105) mg/dL Calculated Osmolality (280-300) Calcium (8.6-10.3) mg/dL Troponin I (< 0.04) ng/mL B-Natriuretic Peptide 68 (Less than 100) pg/mL - Radiology Data Radiology results reviewed: Yes I reviewed the patient's radiology results. Chest X-Ray 04/01/17 18:02 IMPRESSION: No evidence for acute cardiopulmonary process. D/ / 04/01/2017 18:15:16 Lon Tucker MD / [email or web address] Interpreting Provider: Lon Tucker MD - EKG Data EKG attestation: Yes I reviewed and interpreted this EKG. EKG results narrative: EKG taken 03/24/2017 at 1755 shows a sinus rhythm at a rate of [address] elevations or depressions and a leads, QRS widening or QT prolongation. No S1 Q3 T3 no Brugada, no Wellens Attestation Statement - Attestation Attestation: I examined this patient and my medical decision-making was reviewed with the Resident Physician, Dr. Gutierrez. I agree with the documented findings, disposition and treatment plan as described except to the extent set forth below. Pt is a 57 yo wf, hx COPD on 2 lmp [place] O2, who presents to the ER with c/o worsening SOB. Pt with grad worsening URI sxs x 2 days, which progressed to nonprod cough and wheezing. Pt with hypoxia on her home O2 on arrival to ED. Pt denies any F/C, no CP/press, no LE edema, no other assocd sxs. I agree with pt's PE findings as documented. Pt with conversational dyspnea, and dec air movement on auscultation, with diffuse wheezing. Pt with EKG, showing NSR without ischemia. CXR wnl. Pt received duonebx1, then albuterol x 2 with steroids. Some improvement, but remains hypoxic with ambulation. Labs show mild leukocytosis, otherwise wnl. Will admit for AECOPD.
[2017-04-01] MEDS ORDERED: Acetaminophen 325 MG TABLET PO PRN (21:34)
[2017-04-01] MEDS ORDERED: Ondansetron 4 MG/2 ML VIAL IVP PRN (21:34)
[2017-04-01] MEDS ORDERED: Naloxone 0.4 MG/ML INJ IVP PRN (21:34)
[2017-04-01] MEDS ORDERED: Potassium Chloride Elixir 20 MEQ/15 ML UDC PO ONE (21:35)
[2017-04-01] MEDS ORDERED: ALPRAZolam 0.5 MG TABLET PO PRN (21:36)
[2017-04-01] MEDS ORDERED: *HR* HYDROcodone/Acet 5/325 mg TABLET PO PRN (21:36)
--- NOTE | 2017-04-01 21:40 | Internal Med History&Physical ---
Date of Encounter: 04/01/17 Time of Encounter: 21:39 Assessment and Plan (1) Acute exacerbation of chronic obstructive airways disease Current visit: Yes Status: Acute mild; continue bronchodilators and supplemental O2 as needed; start enteral steroids and macrolide; continue ICS; chest XRay reviewed independently- bibasal scarring, no clear e/o- pneumonia; (2) Morbid obesity Current visit: Yes Status: Chronic (3) GERD (gastroesophageal reflux disease) Current visit: Yes Status: Chronic continue PPI; Qualifiers: Esophagitis presence: esophagitis presence not specified Qualified Code(s) : K21.9 - Gastro-esophageal reflux disease without esophagitis (4) Anxiety and depression Current visit: Yes Status: Chronic stable mood; continue home meds; (5) HLD (hyperlipidemia) Current visit: Yes Status: Chronic continue statin; Qualifiers: Hyperlipidemia type: unspecified Qualified Code(s): E78.5 - Hyperlipidemia , unspecified (6) Hypothyroid Current visit: Yes Status: Chronic continue Levothyroxine; Qualifiers: Hypothyroidism type: unspecified Qualified Code(s): E03.9 - Hypothyroidism , unspecified (7) Chronic respiratory failure with hypoxia and hypercapnia Current visit: Yes Status: Chronic due to COPD, GILA; continue supplemental O2 via NC, BiPAP at night; (8) Diastolic heart failure Current visit: Yes Status: Chronic Echocardiogram from 2015 shows preserved EF, grossly normal, technically suboptimal study; continue Lasix and beta chris; Qualifiers: Heart failure chronicity: chronic Qualified Code(s): I50.32 - Chronic diastolic (congestive) heart failure (9) Obstructive sleep apnea Current visit: Yes Status: Chronic continue BiPAP support; (10) Hypokalemia Current visit: Yes Status: Acute likely due to diuretics; supplement with oral KCL and continue daily supplements ; check Mg; Internal Medicine - H&P: HPI Chief complaint: Shortness of breath Admitted From: Emergency Dept Plans for Post Hospital Care: Home History of present illness: Ms. Guadalupe is a 57 year old female with h/o- COPD, GILA, diastolic CHF presents with c/o- worsening shortness of breath. She reports having dyspnea since (3 days ago) which was initially mild, gradually progressed, constant, associated with dry cough and some wheezing. No fever/chills, chest pain, palpitations, orthopnea or leg swelling reported. SHe does have exacerbations of COPD from time to time. She received Flu shot this season. She quit smoking completely since 2 years. She uses home O2, reports compliance to nocturnal BiPAP and inhalers. Past Med Surg Social Fam HX - Past Medical History Medical history: arthritis, CHF, COPD, GERD, hyperlipidemia, hypertension, thyroid disease, venous stasis, other (GILA) Psychiatric history: anxiety, depression - Past Surgical History Surgical History: breast surgery (right lumpectomy- benign), hysterectomy - Social History Smoking Status: Former smoker Smokeless Tobacco Status: No Alcohol use: none Drug use: none Occupational status: disabled Current living situation: Home, With Family Activity Level: Independent ambulation Recent Out of Country Travel Within the Last 8 Weeks: No Exposure or Possible Exposure to Illness During Travel: No - Family History Mother Living Status: Hx Family Cardiac Disorders: Yes (HTN) Hx Family Respiratory Disorders: No Hx Family Cancer: No Hx Family GI Disorders: No Hx Family Endocrine Disorder: No Hx Family Neuromuscular Disorders: No Hx Family Neurologic Disorders: No Hx Family HEENT Disorders: No Hx Family Autoimmune Disorders: No Father Living Status: Still Living Hx Family Cardiac Disorders: Yes (HLD) Hx Family Cancer: Yes (KIDNEY CANCER) Internal Medicine - H&P: Meds ALPRAZolam [Xanax 0.5 MG Tablet] 0.5 mg PO DAILY PRN 02/11/15 [History] Atorvastatin Calcium [Lipitor] 20 mg PO QAM 02/11/15 [History] FLUoxetine HCl [Prozac] 40 mg PO QAM 02/11/15 [History] Hydrocodone/Acetaminophen [[place] 5-325 Tablet] 1 tab PO BID PRN 02/11/15 [ History] Albuterol Sulfate [Proair Respiclick] 2 puff IH Q6H PRN #2 aer.[email or web address] 02/13/15 [ Rx] Budesonide/Formoterol 80/4.5 [Symbicort 80/4.5] 1 puff IH BID 05/12/15 [History ] Roflumilast [Daliresp] 500 mcg PO DAILY 07/23/16 [History] Tiotropium [place] [Spiriva Respimat] 1 puff IH DAILY 07/23/16 [History] Aspirin Enteric Coated [Aspirin EC] 81 mg PO DAILY #30 tablet. 07/25/16 [Rx] Lisinopril [Zestril] 40 mg PO DAILY #30 tablet 07/25/16 [Rx] Potassium Chloride 10 meq PO DAILY #0 07/25/16 [Rx] Levothyroxine Sodium [Levoxyl] 250 mcg PO MOTUWETHFRSA 01/25/17 [History] Meloxicam 15 mg PO DAILY 01/25/17 [History] Oxybutynin Chloride [Ditropan Xl] 5 mg PO DAILY 01/25/17 [History] Albuterol Neb [AccuNeb] 1.25 mg IH Q4HR PRN 04/01/17 [History] Fluticasone Propionate Nasal [Flonase] 50 mcg NS DAILY 04/01/17 [History] Furosemide [Lasix] 40 mg PO DAILY 04/01/17 [History] Levothyroxine Sodium [Synthroid] 200 mcg PO HERRERA 04/01/17 [History] rOPINIRole [Requip] 2 mg PO HS 04/01/17 [History] 3 Allergy/AdvReac Type Severity Reaction Status Date / Time Temazepam [From Restoril] Allergy Hives Verified 04/01/17 17:52 All Systems PM: A 10-system review of systems was performed and is negative for pertinent findings except as documented above in the HPI. - Constitutional Constitutional: no chills, no fever(s), no night sweats - EENT Eyes: no change in vision, no discharge, no pain, no photophobia Ears: no ear discharge, no ear pain, no tinnitus Nose, mouth and throat: no dysphagia, no nasal discharge, no neck pain, no sore throat - Cardiovascular Cardiovascular ROS IM: no chest pain, no diaphoresis, no dyspnea, no lightheadedness, no palpitations, no syncope - Respiratory Respiratory: cough, dyspnea, dyspnea on exertion, wheezing - Gastrointestinal Gastrointestinal: no abdominal pain, no diarrhea, no hematemesis, no hematochezia, no melena, no nausea, no vomiting - Genitourinary Genitourinary: no change in urinary stream, no dysuria, no flank pain, no hematuria - Musculoskeletal Musculoskeletal ROS IM: no numbness, no tingling - Integumentary Integumentary IM: no rash, no unusual bruising - Neurological Neurological ROS: no confusion, no convulsions, no focal weakness, no numbness, no tingling, no tremor(s) - Hematologic/Lymphatic Hematologic/Lymphatic: no easy bruising - Constitutional Vitals: Temp Pulse Resp BP Pulse Ox 98.0 F 74 14 160/79 94 04/01/17 21:35 04/01/17 21:35 04/01/17 21:35 04/01/17 21:35 04/01/17 21:35 General appearance: Present: A&O X 3, morbidly obese, answers questions appropriately - Respiratory Respiratory exam: Present: decreased breath sounds (B/L decreased air entry), wheezes (bibasal end-expiratory wheezing). Absent: accessory muscle use, rales , rhonchi - Cardiovascular Cardiovascular exam: Present: RRR, +S1, +S2. Absent: diastolic murmur, gallop, rubs, systolic murmur - GI/Abdominal GI/Abdominal exam: Present: normal bowel sounds, soft (obese), no peritoneal signs. Absent: distended, tenderness - Extremities Exam Extremities exam: Present: full ROM, pedal edema (trace dependent), warm, radial pulses palpable and symmetrical. Absent: calf tenderness, cyanotic - Neurological Exam Neurological exam: Present: CN II-XII intact, oriented X3, no focal deficits. Absent: pronater drift, facial droop, speech deficit - Skin Skin exam: Present: dry, intact Internal Med - H&P Results - Labs CBC & Chem 7: 04/01/17 18:30 04/01/17 18:30
[2017-04-01] MEDS: *HR* Heparin 5,000 UNIT/ML VIAL SQ SCH (22:17)
[2017-04-01] MEDS: Azithromycin 500 MG in D5% in Water 250 ML IVPB SCH (22:19)
[2017-04-01] MEDS ORDERED: rOPINIRole 1 MG TABLET PO ONE (22:30)
[2017-04-02] MEDS: *HR* Heparin 5,000 UNIT/ML VIAL SQ SCH ×3 (05:31→21:35)
[2017-04-02] MEDS: Ipratropium/Albuterol Neb 3 ML IH PRN ×2 (05:34→20:25)
[2017-04-02 05:35] LABS: Basophils % 0.2 %; Hematocrit 40.6 % (35.3-44.9); Hemoglobin 12.6 g/dL (11.5-15.4); Immature Granulocytes % 0.4 % (0-4); Lymphocytes # 0.7 K/mcL (0.6-4.6); Lymphocytes % 5.7 %; Mean Corpuscular Hemoglobin 26.4 pg (28.0-33.3); Mean Corpuscular Volume 85.1 fL (83.0-100.0); Mean Platelet Volume 10.5 fL (9.4-12.4); Monocytes # 0.7 K/mcL (0.0-1.3); Monocytes % 6.2 %; Neutrophils # 9.9 K/mcL (1.6-8.9); Platelet Count 274 K/mcL (140-400); Red Blood Count 4.77 M/mcL (3.82-4.97); Segmented Neutrophils % 87.5 %
[2017-04-02 05:48] LABS: BUN/Creatinine Ratio 13 (6-26); Blood Urea Nitrogen 8 mg/dL (6-20); Calcium 9.4 mg/dL (8.6-10.3); Carbon Dioxide 32 mEq/L (23-29); Chloride 107 mEq/L (98-107); Glucose 146 mg/dL (70-105); Magnesium 2.1 mg/dL (1.6-2.6); Osmolality,Calculated 295 (280-300); Potassium 4.3 mEq/L (3.5-5.1); Sodium 142 mEq/L (136-145); eGFR For African Americans > 60 (> 60); eGFR For Non-African Americans > 60 (> 60)
[2017-04-02] MEDS: predniSONE 20 MG TABLET PO SCH (09:20)
[2017-04-02] MEDS: FLUoxetine 20 MG CAPSULE PO SCH (09:21)
[2017-04-02] MEDS: Furosemide 40 MG TABLET PO SCH (09:22)
[2017-04-02] MEDS: Lisinopril 20 MG TABLET PO SCH (09:22)
[2017-04-02] MEDS: Aspirin Enteric Coated 81 MG Tablet PO SCH (09:22)
[2017-04-02] MEDS: Fluticasone Propionate Nasal 50 MCG/SPRAY BOTTLE NS SCH (09:28)
[2017-04-02] MEDS: Budesonide/Formoterol 80/4.5 MDI IH SCH ×2 (11:15→20:25)
--- NOTE | 2017-04-02 15:54 | Internal Med Progress Note ---
Date of Encounter: 04/02/17 Time of Encounter: 14:00 - Assessment and plan (1) Acute exacerbation of chronic obstructive airways disease Current Visit: Yes Status: Acute Assessment and plan: with underlying COPD/asthma. Denies tobacco use. Presented with SOB. CXR nonacute. Sx's family improved with DuoNeb's IV steroids and azithromycin. Continue breathing treatments, steroids and ATB. (2) Hypertension Current Visit: No Status: Chronic Assessment and plan: per hx. BP mildly elevated. Continue home BP medication. Monitor BP and titrate PRN Qualifiers: Hypertension type: essential hypertension Qualified Code(s): I10 - Essential (primary) hypertension (3) Hypothyroid Current Visit: Yes Status: Chronic Assessment and plan: per hx. Cont home levothyroxine Qualifiers: Hypothyroidism type: unspecified Qualified Code(s): E03.9 - Hypothyroidism , unspecified (4) Morbid obesity Current Visit: Yes Status: Chronic Assessment and plan: BMI 44; lifestyle modifications recommended (5) DVT prophylaxis Current Visit: No Status: Acute Assessment and plan: heparin - Time Spent With Patient less than 15 minutes - Subjective Interval history: Seen and examined at bedside, patient is new to me. Information obtained from chart review and patient report. Says she feels significantly improved after steroids and breathing treatments. Still with shortness of breath is worse with exertion, relieved with rest. Has nonproductive cough. Denies chest pain. - Constitutional Vitals: Temp Pulse Resp BP Pulse Ox 98.2 F 66 20 141/81 92 04/02/17 15:21 04/02/17 15:21 04/02/17 15:21 04/02/17 15:21 04/02/17 15:21 General appearance: Present: A&O X 3, morbidly obese, answers questions appropriately - Head Head exam: Present: atraumatic, normocephalic - Eye Eye exam: Present: PERRL, conjuntiva pink, sclera anicteric Pupils: Present: PERRL - Neck Neck exam general surgery: Present: supple, trachea midline. Absent: lymphadenopathy - Respiratory Respiratory exam: Present: wheezes. Absent: accessory muscle use, rales, rhonchi - Cardiovascular Cardiovascular exam: Present: RRR, +S1, +S2. Absent: diastolic murmur, gallop, rubs, systolic murmur - GI/Abdominal GI/Abdominal exam: Present: normal bowel sounds, soft, no peritoneal signs. Absent: distended, tenderness - Extremities Exam Extremities exam: Present: warm, radial pulses palpable and symmetrical. Absent : calf tenderness, cyanotic, pedal edema - Neurological Exam Neurological exam: Present: CN II-XII intact, oriented X3, no focal deficits. Absent: pronater drift, facial droop, speech deficit - Skin Skin exam: Present: dry, intact Internal Medicine: Result - Labs CBC & Chem 7: 04/02/17 05:07 04/02/17 05:07 Labs: Short CBC 04/02/17 Range/Units 05:07 WBC 11.4 H (4.3-11.1) K/mcL Hgb 12.6 (11.5-15.4) g/dL Hct 40.6 (35.3-44.9) % Plt Count 274 (140-400) K/mcL Neutrophils # 9.9 H (1.6-8.9) K/mcL BMP 04/02/17 05:07 Sodium 142 Potassium 4.3 D Chloride 107 Carbon Dioxide 32 H BUN 8 Creatinine 0.60 Glucose 146 H Calcium 9.4 Consult Discharge Plan - Plan Referrals: Yves Chapa MD [Primary Care Provider] - 04/13/17 2:15 pm
--- NOTE | 2017-04-02 19:13 | Electrocardiograph Report ---
[place] [id number] Test Date: 2017-04-01 Pat Name: Kate Guadalupe Department: 102 Room: 3B Gender: F [employer] Engineering: Frank : 1960 Requested By: Kirsten See Order Number: [id number] Reading MD: Yash Torres MD Measurements Intervals [place] Rate: 79 P: 47 UT: 149 QRS: 66 QRSD: 118 T: 58 QT: 333 QTc: 368 Interpretive Statements SINUS RHYTHM Poor R wave progression BASELINE ARTIFACT Electronically Signed On 04-02-2017 19:10:57 EST by Yash Torres MD
[2017-04-02] MEDS ORDERED: rOPINIRole 1 MG TABLET PO SCH (21:00)
[2017-04-02] MEDS: Azithromycin 500 MG in D5% in Water 250 ML IVPB SCH (21:35)
[2017-04-03] MEDS: *HR* Heparin 5,000 UNIT/ML VIAL SQ SCH (05:04)
[2017-04-03] MEDS: Ipratropium/Albuterol Neb 3 ML IH PRN (05:47)
[2017-04-03] MEDS: Budesonide/Formoterol 80/4.5 MDI IH SCH (07:59)
[2017-04-03] MEDS: Aspirin Enteric Coated 81 MG Tablet PO SCH (10:46)
[2017-04-03] MEDS: FLUoxetine 20 MG CAPSULE PO SCH (10:46)
[2017-04-03] MEDS: predniSONE 20 MG TABLET PO SCH (10:46)
[2017-04-03] MEDS: Lisinopril 20 MG TABLET PO SCH (10:47)
[2017-04-03] MEDS: Furosemide 40 MG TABLET PO SCH (10:48)
[2017-04-03] MEDS: Fluticasone Propionate Nasal 50 MCG/SPRAY BOTTLE NS SCH (10:49)
[2017-04-03 11:08] VITALS: BP 116/55
--- NOTE | 2017-04-03 12:14 | Discharge Summary ---
Date of Encounter: 04/03/17 Time of Encounter: 12:12 - Discharge Diagnosis (1) Acute exacerbation of chronic obstructive airways disease Priority: Primary Status: Acute Comments: with underlying COPD/asthma. Denies tobacco use. Presented with SOB and wheezing. CXR non-acute. Symptoms significantly improved with DuoNeb's, IV steroids and azithromycin. Respiration is improving to baseline at time of discharge. Continue azithromycin, steroid burst, home inhalers. Recommend follow-up with PCP and paperboard box maker within 1-2 weeks (2) Hypertension Priority: Primary Status: Chronic Comments: per hx. BP mildly elevated at times but overall controlled. Cont home BP medications. Qualifiers: Hypertension type: essential hypertension Qualified Code(s): I10 - Essential (primary) hypertension (3) Hypothyroid Priority: Secondary Status: Chronic Comments: per hx. continue home levothyroxine Qualifiers: Hypothyroidism type: unspecified Qualified Code(s): E03.9 - Hypothyroidism , unspecified (4) Morbid obesity Priority: Secondary Status: Chronic Comments: BMI 44; style modifications encouraged - Discharge Medications Prescriptions: Azithromycin [Azithromycin 6-Tab Pack] 250 mg PO PER PKG DI #6 tab predniSONE [PredniSONE] 40 mg PO DAILY #6 tablet Home Medications: ALPRAZolam [Xanax 0.5 MG Tablet] 0.5 mg PO DAILY PRN 02/11/15 [History] Atorvastatin Calcium [Lipitor] 20 mg PO QAM 02/11/15 [History] FLUoxetine HCl [Prozac] 40 mg PO QAM 02/11/15 [History] Hydrocodone/Acetaminophen [[place] 5-325 Tablet] 1 tab PO BID PRN 02/11/15 [ History] Albuterol Sulfate [Proair Respiclick] 2 puff IH Q6H PRN #2 aer.[email or web address] 02/13/15 [ Rx] Budesonide/Formoterol 80/4.5 [Symbicort 80/4.5] 1 puff IH BID 05/12/15 [History ] Roflumilast [Daliresp] 500 mcg PO DAILY 07/23/16 [History] Tiotropium [place] [Spiriva Respimat] 1 puff IH DAILY 07/23/16 [History] Aspirin Enteric Coated [Aspirin EC] 81 mg PO DAILY #30 tablet. 07/25/16 [Rx] Lisinopril [Zestril] 40 mg PO DAILY #30 tablet 07/25/16 [Rx] Potassium Chloride 10 meq PO DAILY #0 07/25/16 [Rx] Levothyroxine Sodium [Levoxyl] 250 mcg PO MOTUWETHFRSA 01/25/17 [History] Oxybutynin Chloride [Ditropan Xl] 5 mg PO DAILY 01/25/17 [History] Albuterol Neb [AccuNeb] 1.25 mg IH Q4HR PRN 04/01/17 [History] Fluticasone Propionate Nasal [Flonase] 50 mcg NS DAILY 04/01/17 [History] Furosemide [Lasix] 40 mg PO DAILY 04/01/17 [History] Levothyroxine Sodium [Synthroid] 200 mcg PO HERRERA 04/01/17 [History] rOPINIRole [Requip] 2 mg PO HS 04/01/17 [History] Azithromycin [Azithromycin 6-Tab Pack] 250 mg PO PER PKG DI #6 tab 04/03/17 [Rx] predniSONE [PredniSONE] 40 mg PO DAILY #6 tablet 04/03/17 [Rx] Allergies/Adverse Reactions: 3 Allergy/AdvReac Type Severity Reaction Status Date / Time Temazepam [From Restoril] Allergy Hives Verified 04/01/17 17:52 Date of admission: 04/01/17 20:40 Primary care physician: Yves Chapa MD Discharging clinician: Ariadne Fontana Anticipated date of discharge: 04/03/17 - Patient Status Disposition: Home, Self-Care Condition: Good Functional capacity at discharge: uses cane/walker Overall status at discharge: patient is progressing back to baseline - Discharge Instructions Instructions: 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 Okay to resume meloxicam once prednisone is finished - Diet and Activity Activity: increase activity as tolerated Diet: advance to your usual diet Interval History: Seen and examined at bedside; says she feels significantly better like to discharge home today. Not completely back to baseline but she feels close to it. No fevers or chills. Has intermittent nonproductive cough. Still with some shortness of breath is worse with exertion but overall improved. No chest pain. Advised her to follow-up with her paperboard box maker and PCP within 1-2 weeks. Hospital course: See assessment and plan for hospital course - Time Spent with Patient Total time spent providing and/or coordinating discharge services: - Constitutional Vitals: Temp Pulse Resp BP Pulse Ox 98.0 F 66 15 116/55 96 04/03/17 11:06 04/03/17 11:06 04/03/17 11:06 04/03/17 11:06 04/03/17 11:06 General appearance: Present: A&O X 3, morbidly obese, answers questions appropriately - Head Head exam: Present: atraumatic, normocephalic - Eye Eye exam: Present: PERRL, conjuntiva pink, sclera anicteric Pupils: Present: PERRL - Neck Neck exam general surgery: Present: supple, trachea midline. Absent: lymphadenopathy - Respiratory Respiratory exam: Present: CTAB. Absent: accessory muscle use, rales, rhonchi, wheezes - Cardiovascular Cardiovascular exam: Present: RRR, +S1, +S2. Absent: diastolic murmur, gallop, rubs, systolic murmur - GI/Abdominal GI/Abdominal exam: Present: normal bowel sounds, soft, no peritoneal signs. Absent: distended, tenderness - Extremities Exam Extremities exam: Present: warm, radial pulses palpable and symmetrical. Absent : calf tenderness, cyanotic, pedal edema - Neurological Exam Neurological exam: Present: CN II-XII intact, oriented X3, no focal deficits. Absent: pronater drift, facial droop, speech deficit - Skin Skin exam: Present: dry, intact
== END 2017-04-03 15:50 | disposition home or self-care (01) ==
LOC: 3BNU 17:46 → EMEROO 17:46 → 3BNU 20:59
PROVIDERS: ADMIT Internal Medicine; ATTEND Registered Nurse

== ENCOUNTER 2017-07-01 19:04 | Observation (INO) ==
[2017-07-01] MEDS ORDERED: Ipratropium/Albuterol Neb 3 ML IH ONE (19:46)
[2017-07-01] MEDS ORDERED: methylPREDNISolone 125 MG/2 ML VIAL IVP ONE (19:46)
--- NOTE | 2017-07-01 20:13 | Emergency Department Note ---
Disposition Clinical Impression: COPD exacerbation Disposition: Admitted As Inpatient Condition: Good Time of Disposition: 23:30 General Adult HPI - General Chief complaint: ED Shortness of Breath/Dyspnea Stated complaint: SHAWN Time Seen by Provider: 07/01/17 19:33 Nursing Notes Reviewed: Yes Vital Signs Reviewed: Yes - History of Present Illness HPI Narrative: 2 day history of cough, shortness of breath, dyspnea on exertion. Denies any pain. Does wear 2 L of oxygen at baseline. Productive cough with a dark sputum. Sick contact of a grandchild. Pain Scale: 3 - Related Data Home Medications Medication Instructions Recorded Confirmed ALPRAZolam [Xanax 0.5 MG Tablet] 0.5 mg PO DAILY PRN 02/11/15 04/01/17 Atorvastatin Calcium [Lipitor] 20 mg PO QAM 02/11/15 04/01/17 FLUoxetine HCl [Prozac] 40 mg PO QAM 02/11/15 04/01/17 Hydrocodone/Acetaminophen [[place] 1 tab PO BID PRN 02/11/15 04/01/17 5-325 Tablet] Budesonide/Formoterol 80/4.5 1 puff IH BID 05/12/15 04/01/17 [Symbicort 80/4.5] Roflumilast [Daliresp] 500 mcg PO DAILY 07/23/16 04/01/17 Tiotropium [place] [Spiriva 1 puff IH DAILY 07/23/16 04/01/17 Respimat] Levothyroxine Sodium [Levoxyl] 250 mcg PO MOTUWETHFRSA 01/25/17 04/01/17 Oxybutynin Chloride [Ditropan Xl] 5 mg PO DAILY 01/25/17 04/01/17 Albuterol Neb [AccuNeb] 1.25 mg IH Q4HR PRN 04/01/17 04/01/17 Fluticasone Propionate Nasal 50 mcg NS DAILY 04/01/17 04/01/17 [Flonase] Furosemide [Lasix] 40 mg PO DAILY 04/01/17 04/01/17 Levothyroxine Sodium [Synthroid] 200 mcg PO HERRERA 04/01/17 04/01/17 rOPINIRole [Requip] 2 mg PO HS 04/01/17 04/01/17 Previous Rx's Medication Instructions Recorded Albuterol Sulfate [Proair 2 puff IH Q6H PRN #2 [email or web address] 02/13/15 Respiclick] Aspirin Enteric Coated [Aspirin EC] 81 mg PO DAILY #30 tablet. 07/25/16 Lisinopril [Zestril] 40 mg PO DAILY #30 tablet 07/25/16 Potassium Chloride 10 meq PO DAILY #0 07/25/16 Azithromycin [Azithromycin 6-Tab 250 mg PO PER PKG DI #6 tab 04/03/17 Pack] predniSONE [PredniSONE] 40 mg PO DAILY #6 tablet 04/03/17 Allergies Allergy/AdvReac Type Severity Reaction Status Date / Time Temazepam [From Restoril] Allergy Hives Verified 04/01/17 17:52 All systems ED: reviewed and negative except as stated. Constitutional: Denies: fever, chills ENT ED: Reports: congestion Cardiovascular: Reports: dyspnea on exertion. Denies: chest pain, palpitations , syncope Respiratory: Reports: cough, dyspnea, wheezes, sputum production (Dark-colored) Gastrointestinal: Denies: abdominal pain, nausea, vomiting, diarrhea Genitourinary: Denies: urgency, dysuria, frequency Musculoskeletal: Denies: back pain Integumentary: Denies: rash Past Medical History - Past Medical History Attestation: Yes The following information was validated with the patient. Source: patient Medical history: Reports: arthritis, CHF, COPD, GERD, hyperlipidemia, hypertension, thyroid disease, venous stasis, other Surgical history: Reports: hysterectomy Psychiatric history: Reports: anxiety, depression [employer] history: Reports: non-contributory - Social History Smoking Status: Former smoker Smokeless Tobacco Status: No Alcohol use: Reports: none Drug use: Reports: none Physical Exam - General General appearance: alert, in no apparent distress - Head Head exam: atraumatic, normocephalic, normal inspection - Eye Eye exam: Present: normal appearance, PERRL, EOMI - ENT ENT exam: normal exam, normal oropharynx, mucous membranes moist - Neck Neck exam: Present: normal inspection, full ROM, trachea midline - Chest Chest inspection: Present: normal inspection, symmetric chest wall rise - Respiratory Respiratory exam: Present: normal lung sounds bilaterally, wheezes (And rhonchi in lower lobes). Absent: respiratory distress - Cardiovascular Cardiovascular exam: Present: regular rate, normal rhythm, normal heart sounds - Abdominal Exam Abdominal exam: Present: soft, Non-Tender. Absent: organomegaly - Extremities Exam Extremities exam: Present: normal inspection, full ROM, normal capillary refill , pedal edema (Mild edema to lower extremities). Absent: tenderness - Back Exam Back exam: Present: normal inspection, full ROM. Absent: tenderness - Neurological Exam Neurological exam: Present: alert, oriented X3 - Psychiatric Psychiatric exam: Present: normal affect, normal mood - Skin Skin exam: Present: warm, dry, intact, normal color. Absent: rash, cyanosis, diaphoresis, erythema Course Course Narrative: Patient with a history of COPD presenting to the emergency department with a 2 day history of increasing shortness of breath and cough. She states she has a dark colored sputum. No fevers no chills. There is a contact of a sick grandson who had a upper respiratory infection. Patient also reports upper back pain. She reports tightness in her chest. Lung sounds are mildly rhonchorous. Her heart tones are normal. Her abdomen is soft and nontender. She denies any abdominal pain nausea vomiting or diarrhea. She reports that she always wears 2 L of oxygen. She appears to be mildly dyspneic resting in bed. We will get a chest x-ray of patient give her a DuoNeb and do basic lab workup on her. Inclusive of an EKG and troponin. We will provide her with aspirin. - Reevaluation(s) Reevaluation #1: Patient chest x-ray was normal. Her lab workup was unremarkable. After a triple DuoNeb her bronchi did clear up mildly however she has dyspnea on exertion. She gets hypoxic on ambulation. She is at baseline on 2 L. Just getting up from the bed and attempting to walk to the door her oxygen saturation drop below 88. We will admit patient for COPD exacerbation. She has been given a dose of steroids as well as azithromycin. - Consultations Consultation #1: Dr. Shore accepted patient in stable condition. Time: 22:30 Vital Signs Temperature 98.8 F 07/01/17 19:19 Pulse Rate 65 07/01/17 19:19 Respiratory Rate 20 07/01/17 19:19 Blood Pressure 155/85 07/01/17 19:19 O2 Sat by Pulse Oximetry 97 07/01/17 19:19 Temperature 98.8 F 07/01/17 19:19 Pulse Rate 86 07/01/17 22:40 Respiratory Rate 18 07/01/17 22:40 Blood Pressure 172/85 07/01/17 22:40 O2 Sat by Pulse Oximetry 94 07/01/17 22:40 Oxygen Delivery Oxygen Delivery Nasal Cannula Medical Decision Making - Medical Records Medical records reviewed: Yes I reviewed the patient's medical records. - Lab Data Lab results reviewed: Yes I reviewed the patient's lab results. Result diagrams: 07/01/17 20:05 07/01/17 20:05 Lab Results 07/01/17 07/01/17 07/01/17 Range/Units 20:05 20:05 20:05 WBC 11.4 H (4.3-11.1) K/mcL RBC 4.76 (3.82-4.97) M/mcL Hgb 13.0 (11.5-15.4) g/dL Hct 40.6 (35.3-44.9) % MCV 85.3 (83.0-100.0) fL MCH 27.3 L (28.0-33.3) pg MCHC 32.0 (31.6-35.5) g/dL RDW 14.2 (11.5-14.5) % Plt Count 270 (140-400) K/mcL MPV 10.1 (9.4-12.4) fL Immature Gran % 0.4 (0-4) % Seg Neutrophils % 74.7 % Lymphocytes % 14.8 % Monocytes % 7.5 % Eosinophils % 2.2 % Basophils % 0.4 % Neutrophils # 8.5 (1.6-8.9) K/mcL Lymphocytes # 1.7 (0.6-4.6) K/mcL Monocytes # 0.9 (0.0-1.3) K/mcL Eosinophils # 0.3 (0.0-0.6) K/mcL Basophils # 0.0 (0.0-0.2) K/mcL Sodium 142 (136-145) mEq/L Potassium 3.4 L (3.5-5.1) mEq/L Chloride 104 (98-107) mEq/L Carbon Dioxide 32 H (23-29) mEq/L BUN 12 (6-20) mg/dL Creatinine 0.66 (0.60-1.20) mg/dL Est GFR ( Amer) > 60 (> 60) Est GFR (Non-Af Amer) > 60 (> 60) BUN/Creatinine Ratio 18 (6-26) Glucose 111 H (70-105) mg/dL Calculated Osmolality 294 (280-300) Lactic Acid 0.6 (0.5-2.2) mmol/L Calcium 9.5 (8.6-10.3) mg/dL Troponin I < 0.03 (< 0.04) ng/mL - Radiology Data Radiology results reviewed: Yes I reviewed the patient's radiology results. Chest X-Ray 07/01/17 19:47 IMPRESSION: No acute cardiopulmonary disease. D/ / Abdiel Spear MD / Abdiel Spear MD Interpreting Provider: Abdiel Spear MD - EKG Data EKG #1 EKG attestation: Yes I reviewed and interpreted this EKG. EKG results narrative: Normal sinus rhythm at a rate of 64. AK interval is 143. Castration is 87. QTC is 407. QTC is 417. No signs of acute ischemia. No previous EKG compare to. Good R-wave progression. Attestation Statement - Attestation Attestation: I examined this patient and my medical decision-making was reviewed with the Resident Physician. I agree with the documented findings, disposition and treatment plan as described except to the extent set forth below. Findings consistent with COPD exacerbation. Hypoxia with ambulation. We will start steroids, bronchodilator, antibiotics, proceed with admission. I spent greater than 35 minutes of critical care time resuscitating this acutely ill patient suffering from hypoxi this is excluding billable procedures. ,
[2017-07-01 20:20] LABS: Basophils % 0.4 %; Eosinophils # 0.3 K/mcL (0.0-0.6); Eosinophils % 2.2 %; Hematocrit 40.6 % (35.3-44.9); Immature Granulocytes % 0.4 % (0-4); Lymphocytes # 1.7 K/mcL (0.6-4.6); Lymphocytes % 14.8 %; Mean Corpuscular Hemoglobin 27.3 pg (28.0-33.3); Mean Corpuscular Volume 85.3 fL (83.0-100.0); Mean Platelet Volume 10.1 fL (9.4-12.4); Monocytes # 0.9 K/mcL (0.0-1.3); Monocytes % 7.5 %; Neutrophils # 8.5 K/mcL (1.6-8.9); Platelet Count 270 K/mcL (140-400); Red Blood Count 4.76 M/mcL (3.82-4.97); Red Cell Distribution Width 14.2 % (11.5-14.5); Segmented Neutrophils % 74.7 %
[2017-07-01 20:52] LABS: Troponin I < 0.03 ng/mL (< 0.04)
[2017-07-01 20:53] LABS: BUN/Creatinine Ratio 18 (6-26); Blood Urea Nitrogen 12 mg/dL (6-20); Calcium 9.5 mg/dL (8.6-10.3); Carbon Dioxide 32 mEq/L (23-29); Chloride 104 mEq/L (98-107); Glucose 111 mg/dL (70-105); Osmolality,Calculated 294 (280-300); Potassium 3.4 mEq/L (3.5-5.1); Sodium 142 mEq/L (136-145); eGFR For African Americans > 60 (> 60); eGFR For Non-African Americans > 60 (> 60)
[2017-07-01] MEDS ORDERED: Azithromycin 500 MG in D5% in Water 250 ML IVPB ONE (22:21)
[2017-07-02] MEDS ORDERED: Albuterol 2.5 MG/3 ML NEBULIZER IH PRN (00:49)
[2017-07-02] MEDS ORDERED: Acetaminophen 325 MG TABLET PO PRN (00:49)
[2017-07-02] MEDS ORDERED: Naloxone 0.4 MG/ML INJ IVP PRN (00:49)
[2017-07-02] MEDS ORDERED: ALPRAZolam 0.5 MG TABLET PO PRN (01:05)
[2017-07-02] MEDS ORDERED: *HR* HYDROcodone/Acet 5/325 mg TABLET PO PRN (01:05)
--- NOTE | 2017-07-02 01:24 | Internal Med History&Physical ---
<Cale Sotelo R - Last Filed: 07/02/17 01:47> Date of Encounter: 07/02/17 Time of Encounter: 00:15 Assessment and Plan (1) Acute exacerbation of chronic obstructive airways disease Current visit: Yes Status: Acute Worsening shortness of breath, productive cough, dyspnea on exertion. Symptoms consistent with AECOPD. Chest x-ray shows no acute cardiopulmonary disease. Patient is afebrile. Mild leukocytosis of 11.4, no anemia. Potassium 3.4, remainder of BMP is unremarkable. Troponin negative. Lactic acid 0.6. Continue azithromycin, Solu-Medrol, oxygen supplementation, bronchodilators, spiriva, and symbicort (2) Hypoxia Current visit: Yes Status: Acute On 2L home O2 chronically. Patient desaturated upon ambulation in ED to 86%. Continue oxygen supplementation and respiratory support. (3) Hypokalemia Current visit: Yes Status: Acute Potassium 3.4. Will replace with PO potassium. Continue to monitor. Check magnesium in AM. (4) Diastolic heart failure Current visit: Yes Status: Chronic Patient has a history of diastolic CHF, however appears euvolemic on exam. No crackles on lung exam, no lower extremity edema, and no edema noted on chest x- ray. We will continue home dose of Lasix. Qualifiers: Heart failure chronicity: chronic Qualified Code(s): I50.32 - Chronic diastolic (congestive) heart failure (5) Hypertension Current visit: Yes Status: Chronic BP currently 170/79. We will continue home meds. No headache, vision changes, chest pain. Continue to monitor. Qualifiers: Hypertension type: essential hypertension Qualified Code(s): I10 - Essential (primary) hypertension (6) DVT prophylaxis Current visit: Yes Status: Acute [facility] Internal Medicine - H&P: HPI Chief complaint: Shortness of breath Admitted From: Emergency Dept History of present illness: Ms. Guadalupe is a 57 year old female with PMH of COPD (on 2L home O2), diastolic CHF, hypertension, hyperlipidemia, and hypothyroidsim, presented to the emergency department with a 2 day history of progressively worsening dyspnea and productive cough. She reports that her sputum production is dark in color, she is having dyspnea on exertion. Associated symptoms include sensation of tightness in her chest, chills, and non-radiating left sided thoracic back pain. She states that her pain is mild and intermittent with periods of increasing intensity last only minutes at a time. This pain has been ongoing since her dyspnea and cough and worsen. Nothing seems to alleviate or thyroid pain. She denies fevers, lightheadedness, diaphoresis, chest pain, orthopnea, nausea, vomiting, abdominal pain, change in bowels, dysuria, or leg pain/ swelling. She is on 2 L of oxygen at home at baseline, but in the emergency department became hypoxic on ambulation to a oxygen saturation of 86. Past Med Surg Social Fam HX - Past Medical History Medical history: arthritis, CHF, COPD, GERD, hyperlipidemia, hypertension, thyroid disease, venous stasis, other Psychiatric history: anxiety, depression - Past Surgical History Surgical History: hysterectomy, other - Social History Smoking Status: Former smoker Smokeless Tobacco Status: No Alcohol use: none Drug use: none - Family History Mother Living Status: Hx Family Cardiac Disorders: Yes (HTN) Hx Family Respiratory Disorders: No Hx Family Cancer: No Hx Family GI Disorders: No Hx Family Endocrine Disorder: No Hx Family Neuromuscular Disorders: No Hx Family Neurologic Disorders: No Hx Family HEENT Disorders: No Hx Family Autoimmune Disorders: No Father Living Status: Still Living Hx Family Cardiac Disorders: Yes (HLD) Hx Family Cancer: Yes (KIDNEY CANCER) Internal Medicine - H&P: Meds ALPRAZolam [Xanax 0.5 MG Tablet] 0.5 mg PO DAILY PRN 02/11/15 [History] Atorvastatin Calcium [Lipitor] 20 mg PO QAM 02/11/15 [History] FLUoxetine HCl [Prozac] 40 mg PO QAM 02/11/15 [History] Hydrocodone/Acetaminophen [[place] 5-325 Tablet] 1 tab PO BID PRN 02/11/15 [ History] Albuterol Sulfate [Proair Respiclick] 2 puff IH Q6H PRN #2 aer.pow.[email or web address] 02/13/15 [ Rx] Roflumilast [Daliresp] 500 mcg PO DAILY 07/23/16 [History] Aspirin Enteric Coated [Aspirin EC] 81 mg PO DAILY #30 tablet. 07/25/16 [Rx] Lisinopril [Zestril] 40 mg PO DAILY #30 tablet 07/25/16 [Rx] Levothyroxine Sodium [Levoxyl] 50 mcg PO MOTUWETHFRSA 01/25/17 [History] Oxybutynin Chloride [Ditropan Xl] 5 mg PO DAILY 01/25/17 [History] Fluticasone Propionate Nasal [Flonase] 50 mcg NS DAILY 04/01/17 [History] Furosemide [Lasix] 40 mg PO DAILY 04/01/17 [History] Levothyroxine Sodium [Synthroid] 200 mcg PO DAILY 04/01/17 [History] rOPINIRole [Requip] 2 mg PO HS 04/01/17 [History] Albuterol Neb [AccuNeb] 0.083 mg IH Q4HR PRN 07/02/17 [History] Atorvastatin [Lipitor] 20 mg PO HS 07/02/17 [History] Budesonide/Formoterol 160/4.5 [Symbicort 160/4.5] 2 puff IH BID 07/02/17 [ History] Ipratropium/Albuterol Neb [Duoneb] 3 ml IH Q6HR PRN 07/02/17 [History] Lisinopril [Zestril] 40 mg PO DAILY 07/02/17 [History] Meloxicam [Mobic] 15 mg PO DAILY PRN 07/02/17 [History] Potassium Chloride 10 meq PO BID PRN 07/02/17 [History] Tiotropium [place] [Spiriva Respimat] 2.5 gm IH DAILY 07/02/17 [History] 3 Allergy/AdvReac Type Severity Reaction Status Date / Time Temazepam [From Restoril] Allergy Hives Verified 04/01/17 17:52 All Systems PM: A 10-system review of systems was performed and is negative for pertinent findings except as documented above in the HPI. - Constitutional Vitals: Temp Pulse Resp BP Pulse Ox 98.4 F 78 18 170/79 94 07/02/17 00:08 07/02/17 00:08 07/02/17 00:08 07/02/17 00:08 07/02/17 00:08 General appearance: Present: A&O X 3, no acute distress, answers questions appropriately - Head Head exam: Present: atraumatic, normocephalic - Eye Eye exam: Present: EOMI, PERRL, conjuntiva pink, sclera anicteric Pupils: Present: PERRL - Neck Neck exam general surgery: Present: supple, trachea midline. Absent: lymphadenopathy - Respiratory Respiratory exam: Present: decreased breath sounds, wheezes. Absent: accessory muscle use, rales, rhonchi Additional comments: bilaterally - Cardiovascular Cardiovascular exam: Present: RRR, +S1, +S2. Absent: diastolic murmur, systolic murmur - GI/Abdominal GI/Abdominal exam: Present: normal bowel sounds, soft, no peritoneal signs. Absent: distended, tenderness - Extremities Exam Extremities exam: Present: warm, radial pulses palpable and symmetrical. Absent : calf tenderness, cyanotic, pedal edema - Neurological Exam Neurological exam: Present: CN II-XII intact, oriented X3, no focal deficits. Absent: facial droop, speech deficit - Skin Skin exam: Present: dry, intact Internal Med - H&P Results - Labs CBC & Chem 7: 07/01/17 20:05 07/01/17 20:05 <Dominique Wen - Last Filed: 07/02/17 01:57> Date of Encounter: 07/02/17 Internal Medicine - H&P: HPI History of present illness: Ms. Guadalupe is a 57 year old female All Systems PM: A 10-system review of systems was performed and is negative for pertinent findings except as documented above in the HPI. - Constitutional Vitals: Temp Pulse Resp BP Pulse Ox 98.4 F 78 18 170/79 94 07/02/17 00:08 07/02/17 00:08 07/02/17 00:08 07/02/17 00:08 07/02/17 00:08 Internal Med - H&P Results - Labs CBC & Chem 7: 07/01/17 20:05 07/01/17 20:05 - Attending Attestation I have seen and examined this patient independently. I have discussed with resident physician Dr. Sotelo regarding the management plan. Agree with the documentation
[2017-07-02] MEDS: rOPINIRole 1 MG TABLET PO SCH ×2 (01:34→21:09)
[2017-07-02] MEDS: Ipratropium/Albuterol Neb 3 ML IH SCH ×4 (04:06→22:29)
[2017-07-02] MEDS: *HR* Enoxaparin 40 MG/0.4 ML SYRINGE SQ SCH (05:21)
[2017-07-02 05:38] LABS: Basophils % 0.2 %; Hematocrit 41.6 % (35.3-44.9); Hemoglobin 13.1 g/dL (11.5-15.4); Immature Granulocytes % 0.8 % (0-4); Lymphocytes # 0.5 K/mcL (0.6-4.6); Lymphocytes % 4.3 %; Mean Corpuscular HGB Conc 31.5 g/dL (31.6-35.5); Mean Corpuscular Hemoglobin 26.7 pg (28.0-33.3); Mean Corpuscular Volume 84.7 fL (83.0-100.0); Mean Platelet Volume 10.5 fL (9.4-12.4); Monocytes # 0.1 K/mcL (0.0-1.3); Monocytes % 0.8 %; Neutrophils # 10.8 K/mcL (1.6-8.9); Platelet Count 299 K/mcL (140-400); Red Blood Count 4.91 M/mcL (3.82-4.97); Red Cell Distribution Width 14.1 % (11.5-14.5); Segmented Neutrophils % 93.9 %
[2017-07-02 06:41] LABS: BUN/Creatinine Ratio 15 (6-26); Blood Urea Nitrogen 10 mg/dL (6-20); Calcium 9.5 mg/dL (8.6-10.3); Carbon Dioxide 29 mEq/L (23-29); Chloride 102 mEq/L (98-107); Glucose 168 mg/dL (70-105); Osmolality,Calculated 295 (280-300); Potassium 3.6 mEq/L (3.5-5.1); Sodium 141 mEq/L (136-145); eGFR For African Americans > 60 (> 60); eGFR For Non-African Americans > 60 (> 60)
[2017-07-02] MEDS ORDERED: NON-FORMULARY MEDICATION 1 EACH EACH (Atorvastatin Calcium [Lipitor] 20 MG) PO SCH (09:00)
[2017-07-02] MEDS ORDERED: NON-FORMULARY MEDICATION 1 EACH EACH (Lisinopril [Zestril] 40 MG) PO SCH (09:00)
[2017-07-02] MEDS: Aspirin Enteric Coated 81 MG Tablet PO SCH (09:12)
[2017-07-02] MEDS: FLUoxetine 20 MG CAPSULE PO SCH (09:13)
[2017-07-02] MEDS: Fluticasone Propionate Nasal 50 MCG/SPRAY BOTTLE NS SCH (09:13)
[2017-07-02] MEDS: Furosemide 40 MG TABLET PO SCH (09:13)
[2017-07-02] MEDS: MethylPREDNISolone 40 MG/ML VIAL IVP SCH ×3 (09:13→23:57)
[2017-07-02] MEDS: Lisinopril 20 MG TABLET PO SCH (09:13)
[2017-07-02] MEDS: Budesonide/Formoterol 160/4.5 MDI IH SCH ×2 (10:34→22:29)
[2017-07-02] MEDS: Tiotropium 18 MCG inhalation IH SCH (10:36)
[2017-07-02] MEDS: (Roflumilast [Daliresp] 500 MCG) PO SCH (11:30)
--- NOTE | 2017-07-02 17:20 | Event Note ---
Date of Encounter: 07/02/17 Time of Encounter: 12:00 Patient was seen earlier in the morning by hospitalist. Presently patient continues to experience shortness of breath on exertion. Lung sounds with some faint wheezes diminished in the bases bilaterally. Continues with a cough. We will continue with oxygen steroids azithromycin bronchodilators. Add Symbicort. She denies any chest pain fevers or chills at this time. She is hemodynamically stable
[2017-07-02] MEDS: Azithromycin 500 MG in D5% in Water 250 ML IVPB SCH (21:10)
[2017-07-03] MEDS: Ipratropium/Albuterol Neb 3 ML IH SCH ×4 (04:01→20:39)
[2017-07-03] MEDS: *HR* Enoxaparin 40 MG/0.4 ML SYRINGE SQ SCH (06:17)
[2017-07-03] MEDS: (Roflumilast [Daliresp] 500 MCG) PO SCH (08:40)
[2017-07-03] MEDS: MethylPREDNISolone 40 MG/ML VIAL IVP SCH ×3 (08:40→23:49)
[2017-07-03] MEDS: Furosemide 40 MG TABLET PO SCH (08:40)
[2017-07-03] MEDS: Aspirin Enteric Coated 81 MG Tablet PO SCH (08:40)
[2017-07-03] MEDS: Lisinopril 20 MG TABLET PO SCH (08:40)
[2017-07-03] MEDS: FLUoxetine 20 MG CAPSULE PO SCH (08:40)
[2017-07-03] MEDS: Fluticasone Propionate Nasal 50 MCG/SPRAY BOTTLE NS SCH (08:46)
--- NOTE | 2017-07-03 09:35 | Internal Med Progress Note ---
Date of Encounter: 07/03/17 Time of Encounter: 09:33 - Assessment and plan (1) Acute on chronic respiratory failure Current Visit: No Status: Acute Assessment and plan: Patient T7 upon ambulation in the ED to 86%. We will ambulate patient and monitor saturation. Continue with oxygen supplementation-most likely related to COPD exacerbation Qualifiers: Respiratory failure complication: hypoxia Qualified Code(s): J96.21 - Acute and chronic respiratory failure with hypoxia (2) Acute exacerbation of chronic obstructive airways disease Current Visit: Yes Status: Acute Assessment and plan: Diminished breath sounds in lower bases continues to have a cough and dyspnea on exertion-she is at her baseline O2 use at 2 L nasal cannula Chest x-ray no acute process mild leukocytosis continue with Solu-Medrol azithromycin O2 titrated maintain SPO2 greater than 90% bronchodilators (3) Hypokalemia Current Visit: Yes Status: Acute Assessment and plan: This has improved we will continue to monitor and replace as needed (4) Hypertension Current Visit: Yes Status: Chronic Assessment and plan: Stable at this time we will continue with home medications Qualifiers: Hypertension type: essential hypertension Qualified Code(s): I10 - Essential (primary) hypertension (5) DVT prophylaxis Current Visit: Yes Status: Acute Assessment and plan: Lovenox - Subjective Interval history: States she feels better, appears to be SOB on position change. Denies any CP - Constitutional Vitals: Temp Pulse Resp BP Pulse Ox 97.8 F 64 18 167/81 94 07/03/17 08:08 07/03/17 08:08 07/03/17 08:08 07/03/17 08:08 07/03/17 08:08 General appearance: Present: A&O X 3, no acute distress, answers questions appropriately - Head Head exam: Present: atraumatic, normocephalic - Eye Eye exam: Present: PERRL, conjuntiva pink, sclera anicteric Pupils: Present: PERRL - Neck Neck exam general surgery: Present: supple, trachea midline. Absent: lymphadenopathy - Respiratory Respiratory exam: Present: decreased breath sounds, CTAB. Absent: accessory muscle use, rales, rhonchi, wheezes - Cardiovascular Cardiovascular exam: Present: RRR, +S1, +S2. Absent: diastolic murmur, gallop, rubs, systolic murmur - GI/Abdominal GI/Abdominal exam: Present: normal bowel sounds, soft, no peritoneal signs. Absent: distended, tenderness - Extremities Exam Extremities exam: Present: warm, radial pulses palpable and symmetrical. Absent : calf tenderness, cyanotic, pedal edema - Neurological Exam Neurological exam: Present: CN II-XII intact, oriented X3, no focal deficits. Absent: pronater drift, facial droop, speech deficit - Skin Skin exam: Present: dry, intact Internal Medicine: Result - Labs CBC & Chem 7: 07/02/17 03:49 07/02/17 03:49 Consult Discharge Plan - Plan Referrals: Yves Chapa MD [Primary Care Provider] -
[2017-07-03] MEDS: Budesonide/Formoterol 160/4.5 MDI IH SCH ×2 (11:05→20:39)
[2017-07-03] MEDS: Tiotropium 18 MCG inhalation IH SCH (11:07)
--- NOTE | 2017-07-03 16:26 | Electrocardiograph Report ---
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
[2017-07-03] MEDS: Azithromycin 500 MG in D5% in Water 250 ML IVPB SCH (21:03)
[2017-07-03] MEDS: rOPINIRole 1 MG TABLET PO SCH (21:03)
[2017-07-04] MEDS: Ipratropium/Albuterol Neb 3 ML IH SCH ×4 (00:25→11:15)
[2017-07-04 04:20] LABS: Adenovirus Not Detected (Not Detect); Bordetella Pertussis Not Detected (Not Detect); Chlamydophila pneumoniae Not Detected (Not Detect); Coronavirus 229E Not Detected (Not Detect); Coronavirus HKU1 Not Detected (Not Detect); Coronavirus NL63 Not Detected (Not Detect); Coronavirus OC43 Not Detected (Not Detect); Human Metapneumovirus Not Detected (Not Detect); Human Rhinovirus/Enterovirus Not Detected (Not Detect); Influenza A Subtype 2009 H1 Not Detected (Not Detect); Influenza A Untypeable Not Detected (Not Detect); Influenza B Not Detected (Not Detect); Mycoplasma pneumoniae Not Detected (Not Detect); Parainfluenza Virus 1 Not Detected (Not Detect); Parainfluenza Virus 2 Not Detected (Not Detect); Parainfluenza Virus 3 Not Detected (Not Detect); Parainfluenza Virus 4 Not Detected (Not Detect); Respiratory Syncytial Virus Not Detected (Not Detect)
[2017-07-04 05:01] LABS: Basophils % 0.1 %; Hemoglobin 12.3 g/dL (11.5-15.4); Immature Granulocytes % 1.1 % (0-4); Lymphocytes # 0.4 K/mcL (0.6-4.6); Lymphocytes % 2.8 %; Mean Corpuscular HGB Conc 30.8 g/dL (31.6-35.5); Mean Corpuscular Hemoglobin 26.4 pg (28.0-33.3); Mean Corpuscular Volume 85.8 fL (83.0-100.0); Mean Platelet Volume 10.5 fL (9.4-12.4); Monocytes # 0.4 K/mcL (0.0-1.3); Monocytes % 2.6 %; Neutrophils # 13.9 K/mcL (1.6-8.9); Platelet Count 294 K/mcL (140-400); Red Blood Count 4.66 M/mcL (3.82-4.97); Red Cell Distribution Width 14.4 % (11.5-14.5); Segmented Neutrophils % 93.4 %
[2017-07-04 05:21] LABS: BUN/Creatinine Ratio 22 (6-26); Blood Urea Nitrogen 14 mg/dL (6-20); Calcium 9.4 mg/dL (8.6-10.3); Carbon Dioxide 33 mEq/L (23-29); Chloride 102 mEq/L (98-107); Glucose 231 mg/dL (70-105); Osmolality,Calculated 300 (280-300); Potassium 3.8 mEq/L (3.5-5.1); Sodium 141 mEq/L (136-145); eGFR For African Americans > 60 (> 60); eGFR For Non-African Americans > 60 (> 60)
[2017-07-04] MEDS: *HR* Enoxaparin 40 MG/0.4 ML SYRINGE SQ SCH (05:55)
[2017-07-04] MEDS: Budesonide/Formoterol 160/4.5 MDI IH SCH (07:32)
[2017-07-04] MEDS: Tiotropium 18 MCG inhalation IH SCH (07:35)
[2017-07-04] MEDS: Lisinopril 20 MG TABLET PO SCH (09:16)
[2017-07-04] MEDS: FLUoxetine 20 MG CAPSULE PO SCH (09:16)
[2017-07-04] MEDS: Aspirin Enteric Coated 81 MG Tablet PO SCH (09:17)
[2017-07-04] MEDS: Furosemide 40 MG TABLET PO SCH (09:17)
[2017-07-04] MEDS: MethylPREDNISolone 40 MG/ML VIAL IVP SCH (09:17)
[2017-07-04] MEDS: Fluticasone Propionate Nasal 50 MCG/SPRAY BOTTLE NS SCH (09:32)
[2017-07-04] MEDS: (Roflumilast [Daliresp] 500 MCG) PO SCH (09:32)
--- NOTE | 2017-07-04 10:10 | Discharge Summary ---
Date of Encounter: 07/04/17 Time of Encounter: 10:10 - Discharge Diagnosis (1) Acute exacerbation of chronic obstructive airways disease Priority: Primary Status: Acute Comments: known hx COPD, on home oxygen. Presented with worsening SOB and productive cough. Resp PCR negative. CXR non-acute. Aortic Dissection Detection Risk Score zero, Wells score with low probability; do not suspect pulmonary embolism, aortic dissection as cause of SOB. Sx's improved with IV steroids, azithromycin , nebulizers. Discharge home with Z-Petey, steroid burst. Cont home inhalers (2) Chronic respiratory failure Priority: Primary Status: Acute Comments: with underlying COPD. Wears O2 at 2.5 Lpm at home. Adequately oxygenating on home dose O2 at time of discharge Qualifiers: Respiratory failure complication: hypoxia Qualified Code(s): J96.11 - Chronic respiratory failure with hypoxia (3) Hypertension Priority: Primary Status: Chronic Comments: per hx. BP elevated at times. Patient reports only taking half dose of Lisinopril at home. Medication compliance encouraged. Continue home JOHN. Recommend follow-up with PCP within one week for BP recheck Qualifiers: Hypertension type: essential hypertension Qualified Code(s): I10 - Essential (primary) hypertension (4) Morbid obesity with BMI of 45.0-49.9, adult Priority: Secondary Status: Acute Comments: BMI 45.3kg; lifestyle/diet modifications encouraged (5) Leukocytosis Priority: Primary Status: Acute Comments: WBC 14.9K and in the setting of steroids. No retention or tachycardia. Suspect secondary to steroids. Recommend follow-up with PCP within 1-2 weeks for repeat CBC. Qualifiers: Leukocytosis type: unspecified Qualified Code(s): D72.829 - Elevated white blood cell count, unspecified (6) Diastolic congestive heart failure Priority: Secondary Status: Chronic Comments: per hx. 07/2016 TTE with EF 60%, mild diastolic dysfunction. Appeared euvolemic. Continue home Lasix. Qualifiers: Qualified Code(s): I50.32 - Chronic diastolic (congestive) heart failure Hospital course: Please see assessment and plan for hospital course Discharge discussed with: patient (Seen and examined at bedside, patient is new to me. Information obtained from chart review and patient report. Says she feels significantly better and would like to go home today. Has some shortness of breath but overall improved and back to baseline. No chest pain. No fevers or chills.) - Time Spent with Patient Total time spent providing and/or coordinating discharge services: Less than 30 minutes - Discharge Medications Prescriptions: Azithromycin [Azithromycin 6-Tab Pack] 250 mg PO PER PKG DI #6 tab predniSONE [PredniSONE] 40 mg PO DAILY #10 tablet Home Medications: ALPRAZolam [Xanax 0.5 MG Tablet] 0.5 mg PO DAILY PRN 02/11/15 [History] FLUoxetine HCl [Prozac] 40 mg PO QAM 02/11/15 [History] Hydrocodone/Acetaminophen [[place] 5-325 Tablet] 1 tab PO BID PRN 02/11/15 [ History] Albuterol Sulfate [Proair Respiclick] 2 puff IH Q6H PRN #2 aer.[email or web address] 02/13/15 [ Rx] Roflumilast [Daliresp] 500 mcg PO DAILY 07/23/16 [History] Aspirin Enteric Coated [Aspirin EC] 81 mg PO DAILY #30 tablet. 07/25/16 [Rx] Levothyroxine Sodium [Levoxyl] 50 mcg PO MOTUWETHFRSA 01/25/17 [History] Oxybutynin Chloride [Ditropan Xl] 5 mg PO DAILY 01/25/17 [History] Fluticasone Propionate Nasal [Flonase] 50 mcg NS DAILY 04/01/17 [History] Furosemide [Lasix] 40 mg PO DAILY 04/01/17 [History] Levothyroxine Sodium [Synthroid] 200 mcg PO DAILY 04/01/17 [History] rOPINIRole [Requip] 2 mg PO HS 04/01/17 [History] Albuterol Neb [AccuNeb] 0.083 mg IH Q4HR PRN 07/02/17 [History] Atorvastatin [Lipitor] 20 mg PO HS 07/02/17 [History] Budesonide/Formoterol 160/4.5 [Symbicort 160/4.5] 2 puff IH BID 07/02/17 [ History] Lisinopril [Zestril] 40 mg PO DAILY 07/02/17 [History] Meloxicam [Mobic] 15 mg PO DAILY PRN 07/02/17 [History] Potassium Chloride 10 meq PO BID PRN 07/02/17 [History] Tiotropium [place] [Spiriva Respimat] 2.5 gm IH DAILY 07/02/17 [History] Azithromycin [Azithromycin 6-Tab Pack] 250 mg PO PER PKG DI #6 tab 07/04/17 [Rx] predniSONE [PredniSONE] 40 mg PO DAILY #10 tablet 07/04/17 [Rx] Allergies/Adverse Reactions: 3 Allergy/AdvReac Type Severity Reaction Status Date / Time Temazepam [From Restoril] Allergy Hives Verified 07/02/17 09:33 Date of admission: 07/01/17 23:00 Primary care physician: Yves Chapa MD Consults: 07/02/17 00:49 Consult to Nurse Navigator [CONS] Routine Comment: Discharging clinician: Ariadne Fontana Anticipated date of discharge: 07/04/17 - Constitutional Vitals: Temp Pulse Resp BP Pulse Ox 98.6 F 69 18 181/80 94 07/04/17 07:17 07/04/17 07:17 07/04/17 07:17 07/04/17 07:17 07/04/17 07:17 General appearance: Present: A&O X 3, no acute distress, answers questions appropriately - Head Head exam: Present: atraumatic, normocephalic - Eye Eye exam: Present: PERRL, conjuntiva pink, sclera anicteric Pupils: Present: PERRL - Neck Neck exam general surgery: Present: supple, trachea midline. Absent: lymphadenopathy - Respiratory Respiratory exam: Present: CTAB. Absent: accessory muscle use, rales, rhonchi, wheezes - Cardiovascular Cardiovascular exam: Present: RRR, +S1, +S2. Absent: diastolic murmur, gallop, rubs, systolic murmur - GI/Abdominal GI/Abdominal exam: Present: normal bowel sounds, soft, no peritoneal signs. Absent: distended, tenderness - Extremities Exam Extremities exam: Present: warm, radial pulses palpable and symmetrical. Absent : calf tenderness, cyanotic, pedal edema - Neurological Exam Neurological exam: Present: CN II-XII intact, oriented X3, no focal deficits. Absent: pronater drift, facial droop, speech deficit - Skin Skin exam: Present: dry, intact - Patient Status Disposition: Home, Self-Care Condition: Good Functional capacity at discharge: independent ambulation Overall status at discharge: patient is back to baseline - Discharge Instructions Instructions: Chronic Obstructive Pulmonary Disease (DC), Azithromycin (By mouth), Prednisone (By mouth), Hypertension (DC) Follow Up With: Yves Chapa MD [Primary Care Provider] - (Please call for follow-up appt within 1 week ) - Diet and Activity Activity: increase activity as tolerated Diet: diabetic diet, low fat, low cholesterol
[2017-07-04 10:38] VITALS: BP 156/77
== END 2017-07-04 12:17 | disposition home or self-care (01) ==
LOC: EMEROO 19:04 → 3BNU 19:04
PROVIDERS: ADMIT Internal Medicine; ATTEND Registered Nurse

== ENCOUNTER 2018-07-03 20:01 | Observation (INO) ==
[2018-07-03] MEDS ORDERED: methylPREDNISolone 125 MG/2 ML VIAL IVP ONE (21:02)
[2018-07-03] MEDS ORDERED: Ipratropium/Albuterol Neb 3 ML IH ONE (21:02)
[2018-07-03 21:30] LABS: Basophils # 0.1 K/mcL (0.0-0.2); Basophils % 0.5 %; Eosinophils # 0.2 K/mcL (0.0-0.6); Eosinophils % 1.4 %; Hematocrit 42.2 % (35.3-44.9); Immature Granulocytes % 0.3 % (0-4); Lymphocytes # 1.3 K/mcL (0.6-4.6); Lymphocytes % 10.5 %; Mean Corpuscular HGB Conc 30.8 g/dL (31.6-35.5); Mean Corpuscular Hemoglobin 27.4 pg (28.0-33.3); Mean Corpuscular Volume 88.8 fL (83.0-100.0); Mean Platelet Volume 10.3 fL (9.4-12.4); Monocytes # 1.4 K/mcL (0.0-1.3); Monocytes % 11.1 %; Neutrophils # 9.5 K/mcL (1.6-8.9); Platelet Count 257 K/mcL (140-400); Red Blood Count 4.75 M/mcL (3.82-4.97); Segmented Neutrophils % 76.2 %
[2018-07-03 21:49] LABS: BUN/Creatinine Ratio 17 (6-26); Blood Urea Nitrogen 12 mg/dL (6-20); Carbon Dioxide 36 mEq/L (23-29); Chloride 100 mEq/L (98-107); Glucose 110 mg/dL (70-105); Osmolality,Calculated 298 (280-300); Potassium 3.6 mEq/L (3.5-5.1); Sodium 144 mEq/L (136-145); Troponin I 0.03 ng/mL (< 0.04); eGFR For Non-African Americans > 60 (> 60)
--- NOTE | 2018-07-03 22:49 | Emergency Department Note ---
Disposition Clinical Impression: COPD exacerbation Disposition: Admitted As Inpatient Condition: Good Referrals: Yves Chapa MD [Primary Care Provider] - SOB HPI - General Chief Complaint: ED Shortness of Breath/Dyspnea Stated Complaint: COPD Exacerbation Time Seen by Provider: 07/03/18 20:31 Source: patient Mode of arrival: ambulatory Limitations: no limitations Nursing Notes Reviewed: Yes Vital Signs Reviewed: Yes - History of Present Illness Patient presented for evaluation shortness breath. Patient has history of COPD 2 L oxygen dependent at home has had worsening shortness of breath for the last 2 days with cough and mild sputum production. Overall patient has not had CT scan fevers or body aches. Patient overall states that her home breathing treatments up and helping her significantly enough. Patient states that she is cannot get a full deep breath in. Patient initially went under triage labs and chest x-ray secondary to ED volume. Chest x-ray with concern for possible CHF. Patient does have diffuse and oriented toward wheezing. Patient be given breathing treatment steroids and due to her overall tachypnea at 27 will be started BiPAP. - Related Data Home Medications Medication Instructions Recorded Confirmed ALPRAZolam [Xanax 0.5 MG Tablet] 0.5 mg PO DAILY PRN 02/11/15 07/02/17 FLUoxetine HCl [Prozac] 40 mg PO QAM 02/11/15 07/02/17 Hydrocodone/Acetaminophen [[place] 1 tab PO BID PRN 02/11/15 07/02/17 5-325 Tablet] Roflumilast [Daliresp] 500 mcg PO DAILY 07/23/16 07/02/17 Levothyroxine Sodium [Levoxyl] 50 mcg PO MOTUWETHFRSA 01/25/17 07/02/17 Oxybutynin Chloride [Ditropan Xl] 5 mg PO DAILY 01/25/17 07/02/17 Fluticasone Propionate Nasal 50 mcg NS DAILY 04/01/17 07/02/17 [Flonase] Furosemide [Lasix] 40 mg PO DAILY 04/01/17 07/02/17 Levothyroxine Sodium [Synthroid] 200 mcg PO DAILY 04/01/17 07/02/17 rOPINIRole [Requip] 2 mg PO HS 04/01/17 07/02/17 Albuterol Neb [AccuNeb] 0.083 mg IH Q4HR PRN 07/02/17 07/02/17 Atorvastatin [Lipitor] 20 mg PO HS 07/02/17 07/02/17 Budesonide/Formoterol 160/4.5 2 puff IH BID 07/02/17 07/02/17 [Symbicort 160/4.5] Lisinopril [Zestril] 40 mg PO DAILY 07/02/17 07/02/17 Meloxicam [Mobic] 15 mg PO DAILY PRN 07/02/17 07/02/17 Potassium Chloride 10 meq PO BID PRN 07/02/17 07/02/17 Tiotropium [place] [Spiriva 2.5 gm IH DAILY 07/02/17 07/02/17 Respimat] Previous Rx's Medication Instructions Recorded Albuterol Sulfate [Proair 2 puff IH Q6H PRN #2 aer.[email or web address] 02/13/15 Respiclick] Aspirin Enteric Coated [Aspirin EC] 81 mg PO DAILY #30 tablet. 07/25/16 Azithromycin [Azithromycin 6-Tab 250 mg PO PER PKG DI #6 tab 07/04/17 Pack] predniSONE [PredniSONE] 40 mg PO DAILY #10 tablet 07/04/17 Oxybutynin Chloride [Ditropan Xl] 10 mg PO DAILY #14 tab.er.24 05/29/18 Ropinirole HCl [Requip Xl] 4 mg PO HS #14 tab.er.24h 05/29/18 predniSONE [Prednisone] 50 mg PO DAILY #5 tablet 05/29/18 predniSONE [PredniSONE] 40 mg PO DAILY #8 tablet 06/12/18 Allergies Allergy/AdvReac Type Severity Reaction Status Date / Time Temazepam [From Restoril] Allergy Hives Verified 07/02/17 09:33 All systems ED: reviewed and negative except as stated. Review of Systems: As Per HPI Constitutional: Denies: fever, chills ENT ED: Denies: congestion Cardiovascular: Denies: chest pain, palpitations Respiratory: Reports: cough, dyspnea, wheezes Gastrointestinal: Denies: abdominal pain, nausea Integumentary: Denies: rash, abrasion, lesions Endocrine: Reports: fatigue Past Medical History - Past Medical History Medical history: Reports: arthritis, CHF, COPD, GERD, hyperlipidemia, hyper tension, thyroid disease, venous stasis, other Surgical history: Reports: hysterectomy, other Psychiatric history: Reports: anxiety, depression [employer] history: Reports: non-contributory - Social History Smoking Status: Former smoker Smokeless Tobacco Status: No Alcohol use: Reports: none Drug use: Reports: none Physical Exam General: Patient with mild respiratory distress and tachypnea Head: Normocephalic Atraumatic Eyes: PERRL, EOMI ENT: Airway patent, no stridor Neck: supple, no meningismus Chest: Diffuse inspiratory and expiratory wheezing Cardiac: Regular rhythm Abdomen: soft, nontender, nondistended; no guarding, rebound, or tenderness to percussion Musculoskeletal: Calves symmetric, nontender. Skin: No rash, normal skin tone. Neuro: Alert and Oriented to person, place, and time; No obvious focal deficit. Course - Reevaluation(s) Reevaluation #1: Patient significantly improved with BiPAP and breathing treatments. Patient continues to have expiratory wheezing but inspiratory wheezing is resolved. Patient be admitted for further management. - Consultations Consultation #1: Discussed with hospitalist. Patient accepted for admission. No further orders at this time. Vital Signs Temperature 99.6 F 07/03/18 20:06 Pulse Rate 81 07/03/18 20:06 Respiratory Rate 28 07/03/18 20:06 Blood Pressure 193/81 07/03/18 20:06 O2 Sat by Pulse Oximetry 97 07/03/18 20:06 Temperature 99.6 F 07/03/18 21:21 Pulse Rate 78 07/03/18 22:02 Respiratory Rate 20 07/03/18 22:02 Blood Pressure 166/78 07/03/18 22:02 O2 Sat by Pulse Oximetry 100 07/03/18 22:02 Oxygen Delivery Oxygen Delivery Bipap Shortness of Breath/Dyspnea - Medical Records Medical records reviewed: Yes I reviewed the patient's medical records. - Lab Data Lab results reviewed: Yes I reviewed the patient's lab results. Result diagrams: 07/03/18 21:12 07/03/18 21:12 Lab Results 07/03/18 07/03/18 07/03/18 Range/Units 21:12 21:12 21:12 WBC 12.5 H (4.3-11.1) K/mcL RBC 4.75 (3.82-4.97) M/mcL Hgb 13.0 (11.5-15.4) g/dL Hct 42.2 (35.3-44.9) % MCV 88.8 (83.0-100.0) fL MCH 27.4 L (28.0-33.3) pg MCHC 30.8 L (31.6-35.5) g/dL RDW 14.0 (11.5-14.5) % Plt Count 257 (140-400) K/mcL MPV 10.3 (9.4-12.4) fL Immature Gran % 0.3 (0-4) % Seg Neutrophils % 76.2 % Lymphocytes % 10.5 % Monocytes % 11.1 % Eosinophils % 1.4 % Basophils % 0.5 % Neutrophils # 9.5 H (1.6-8.9) K/mcL Lymphocytes # 1.3 (0.6-4.6) K/mcL Monocytes # 1.4 H (0.0-1.3) K/mcL Eosinophils # 0.2 (0.0-0.6) K/mcL Basophils # 0.1 (0.0-0.2) K/mcL Sodium 144 (136-145) mEq/L Potassium 3.6 (3.5-5.1) mEq/L Chloride 100 (98-107) mEq/L Carbon Dioxide 36 H (23-29) mEq/L BUN 12 (6-20) mg/dL Creatinine 0.70 (0.60-1.20) mg/dL Est GFR ( Amer) > 60 (> 60) Est GFR (Non-Af Amer) > 60 (> 60) BUN/Creatinine Ratio 17 (6-26) Glucose 110 H (70-105) mg/dL Calculated Osmolality 298 (280-300) Lactic Acid 1.1 (0.5-2.2) mmol/L Calcium 10.0 (8.6-10.3) mg/dL Troponin I 0.03 (< 0.04) ng/mL B-Natriuretic Peptide (Less than 100) pg/mL 07/03/18 Range/Units 21:12 WBC (4.3-11.1) K/mcL RBC (3.82-4.97) M/mcL Hgb (11.5-15.4) g/dL Hct (35.3-44.9) % MCV (83.0-100.0) fL MCH (28.0-33.3) pg MCHC (31.6-35.5) g/dL RDW (11.5-14.5) % Plt Count (140-400) K/mcL MPV (9.4-12.4) fL Immature Gran % (0-4) % Seg Neutrophils % % Lymphocytes % % Monocytes % % Eosinophils % % Basophils % % Neutrophils # (1.6-8.9) K/mcL Lymphocytes # (0.6-4.6) K/mcL Monocytes # (0.0-1.3) K/mcL Eosinophils # (0.0-0.6) K/mcL Basophils # (0.0-0.2) K/mcL Sodium (136-145) mEq/L Potassium (3.5-5.1) mEq/L Chloride (98-107) mEq/L Carbon Dioxide (23-29) mEq/L BUN (6-20) mg/dL Creatinine (0.60-1.20) mg/dL Est GFR ( Amer) (> 60) Est GFR (Non-Af Amer) (> 60) BUN/Creatinine Ratio (6-26) Glucose (70-105) mg/dL Calculated Osmolality (280-300) Lactic Acid (0.5-2.2) mmol/L Calcium (8.6-10.3) mg/dL Troponin I (< 0.04) ng/mL B-Natriuretic Peptide 75 (Less than 100) pg/mL - Radiology Data Radiology results reviewed: Yes I reviewed the patient's radiology results. Chest X-Ray 07/03/18 20:08 IMPRESSION: Cardiomegaly. Pulmonary findings typical of congestive heart failure. Other diffuse interstitial processes may have the same appearance. D/ / Tl Faye / Tl Faye Interpreting Provider: Tl Faye - EKG Data EKG attestation: Yes I reviewed and interpreted this EKG. EKG results narrative: EKG shows sinus rhythm with heart of 80 [place] 151 QRS 93 QTC 390ST elevations or depressions.
--- NOTE | 2018-07-04 00:51 | Internal Med History&Physical ---
Date of Encounter: 07/04/18 Time of Encounter: 00:49 Internal Medicine - H&P: HPI Chief complaint: SOB History of present illness: Ms. Guadalupe is a 58 year old female with PMH of COPD (on 2L home O2), diastolic CHF, hypertension, hyperlipidemia, and hypothyroidsim, presented to the emergency department with a 2 day history of progressively worsening dyspnea and productive cough. She reports that her sputum production is dark in color, she is having dyspnea on exertion. She denies fevers, lightheadedness, diaphoresis, chest pain, orthopnea, nausea, vomiting, abdominal pain, change in bowels, dysuria, or leg pain/swelling. She is on 2 L of oxygen at home. On a rrival patient was noted to be tachypneic and wheezing with increased work of breathing. Laboratory results were notable for a mild leukocytosis but otherwise unremarkable. Chest x-ray suggestive of pulmonary vascular congestion. Patient was placed on BiPAP with significant improvement. She rece ived breathing treatments with good response. On my assessment of the patient, she was lying in bed in no acute distress on BiPAP. No evidence of conversational dyspnea. She reports feeling better. We will continue treatment for COPD exacerbation at this time. No evidence of CHF on clinical examination. Past Med Surg Social Fam HX - Past Medical History Medical history: arthritis, CHF, COPD, GERD, hyperlipidemia, hypertension, thyroid disease, venous stasis, other Additional medical history: osteoarthritis, hypothyroidism Psychiatric history: anxiety, depression - Past Surgical History Surgical History: hysterectomy, other Additional surgical history: right breast lumpectomy - Social History Smoking Status: Former smoker Smokeless Tobacco Status: No Alcohol use: none Drug use: none - Family History Mother Living Status: Hx Family Cardiac Disorders: Yes (HTN) Hx Family Respiratory Disorders: No Hx Family Cancer: Yes (brain tumor (benign, but never recovered from sx)) Hx Family GI Disorders: No Hx Family Endocrine Disorder: No Hx Family Neuromuscular Disorders: No Hx Family Neurologic Disorders: No Hx Family HEENT Disorders: No Hx Family Autoimmune Disorders: No Father Living Status: Hx Family Cardiac Disorders: Yes (HLD) Hx Family Cancer: Yes (KIDNEY CANCER) Hx Family Medical Disorders: (Sepsis) Internal Medicine - H&P: Meds ALPRAZolam [Xanax 0.5 MG Tablet] 0.5 mg PO DAILY PRN 02/11/15 [History] Roflumilast [Daliresp] 500 mcg PO DAILY 07/23/16 [History] Aspirin Enteric Coated [Aspirin EC] 81 mg PO DAILY #30 tablet. 07/25/16 [Rx] Fluticasone Propionate Nasal [Flonase] 1 spray NS DAILY 04/01/17 [History] Furosemide [Lasix] 40 mg PO DAILY 04/01/17 [History] Levothyroxine Sodium [Synthroid] 200 mcg PO DAILY 04/01/17 [History] Budesonide/Formoterol 160/4.5 [Symbicort 160/4.5] 2 puff IH BID 07/02/17 [History] Lisinopril [Zestril] 40 mg PO DAILY 07/02/17 [History] Meloxicam [Mobic] 15 mg PO DAILY PRN 07/02/17 [History] Potassium Chloride 10 meq PO BID PRN 07/02/17 [History] Tiotropium [place] [Spiriva Respimat] 2 puff IH DAILY 07/02/17 [History] Oxybutynin Chloride [Ditropan Xl] 10 mg PO DAILY #14 tab.er.24 05/29/18 [Rx] Albuterol Sulfate [Albuterol Inhaler] 2 puff IH Q6H PRN 07/04/18 [History] Atorvastatin Calcium [Lipitor] 20 mg PO DAILY 07/04/18 [History] Diclofenac Sodium [Voltaren] 4 gm TP TID PRN 07/04/18 [History] FLUoxetine HCl [Fluoxetine HCl] 40 mg PO DAILY 07/04/18 [History] HYDROcodone/Acet 5/325 mg [[place] 5-325 mg] 1 tab PO BID PRN 07/04/18 [History] Ipratropium/Albuterol Neb [Duoneb] 3 ml IH Q6H PRN 07/04/18 [History] Oxygen 2 l IH CONT 07/04/18 [History] rOPINIRole [Requip] 4 mg PO HS 07/04/18 [History] Allergy/AdvReac Type Severity Reaction Status Date / Time Temazepam [From Restoril] Allergy "Hives, Verified 07/04/18 21:57 EYES SWELL SHUT" All Systems PM: A 10-system review of systems was performed and is negative for pertinent findings except as documented above in the HPI. - Constitutional Constitutional: no chills, no fever(s), no night sweats - EENT Eyes: no change in vision, no discharge, no pain, no photophobia Ears: no ear discharge, no ear pain, no tinnitus Nose, mouth and throat: no dysphagia, no nasal discharge, no neck pain, no sore throat - Cardiovascular Cardiovascular ROS IM: no chest pain, no diaphoresis, no dyspnea, no lig htheadedness, no palpitations, no syncope - Respiratory Respiratory: no cough, no dyspnea, no wheezing, no excessive phlegm production - Gastrointestinal Gastrointestinal: no abdominal pain, no diarrhea, no hematemesis, no hematochezia, no melena, no nausea, no vomiting - Genitourinary Genitourinary: no change in urinary stream, no dysuria, no flank pain, no hematuria - Musculoskeletal Musculoskeletal ROS IM: no numbness, no tingling - Integumentary Integumentary IM: no rash, no unusual bruising - Neurological Neurological ROS: no confusion, no convulsions, no focal weakness, no numbness, no tingling, no tremor(s) - Hematologic/Lymphatic Hematologic/Lymphatic: no easy bruising - Constitutional Vitals: Temp Pulse Resp BP Pulse Ox 98.8 F 78 24 144/78 92 07/03/18 23:49 07/03/18 23:49 07/03/18 23:49 07/03/18 23:49 07/03/18 23:49 Exam: General: Alert and oriented 3 lying in bed in no acute distress Skin:Normal color, no rash, no lesions. HEENT:EOM, pupils equal, round and reactive. Cardiovascular:Normal S1 & S2, no rubs, murmurs or gallops. No JVD. Pulse regular. Lungs: Breath sounds diminished bilaterally; no wheezes appreciated Abdomen:Soft, non-tender, no rigidity. Extremities:No deformity, no edema or tenderness, no joint swelling or clubbing. Neurological:Normal cognition and motor skills. Pulses:Carotid and radial pulses normal +2. Rest of the physical exam is non contributory Internal Med - H&P Results - Labs CBC & Chem 7: 07/04/18 03:21 07/04/18 03:21 Labs: Short CBC 07/03/18 Range/Units 21:12 WBC 12.5 H (4.3-11.1) K/mcL Hgb 13.0 (11.5-15.4) g/dL Hct 42.2 (35.3-44.9) % Plt Count 257 (140-400) K/mcL Neutrophils # 9.5 H (1.6-8.9) K/mcL BMP 07/03/18 21:12 Sodium 144 Potassium 3.6 Chloride 100 Carbon Dioxide 36 H BUN 12 Creatinine 0.70 Glucose 110 H Calcium 10.0 Cardiac Enzymes 07/03/18 Range/Units 21:12 Troponin I 0.03 (< 0.04) ng/mL - Impressions ITS Impressions Chest X-Ray 07/03/18 20:08 IMPRESSION: Cardiomegaly. Pulmonary findings typical of congestive heart failure. Other diffuse interstitial processes may have the same appearance. D/ / Tl Faye / Tl Faye Interpreting Provider: Tl Faye - Assessment and Plan (1) COPD exacerbation Current Visit: Yes Status: Acute Assessment and plan: Patient has a history of COPD on 2 L oxygen at home presents with worsening shortness of breath with increased cough and sputum production. Found to be tachypneic on arrival. Patient placed on BiPAP with good response. -Continue BiPAP as needed -DuoNeb's -Steroids -Antibiotics (2) Dyspnea Current Visit: Yes Status: Acute Assessment and plan: Dyspnea on presentation likely secondary to COPD exacerbation. No clinical evidence of CHF at this time. We will treat for COPD as above.. Qualifiers: Dyspnea type: unspecified Qualified Code(s): R06.00 - Dyspnea, unspecified (3) Hypertension Current Visit: No Status: Chronic Assessment and plan: Blood pressure stable. Resume home antihypertensives Qualifiers: Hypertension type: essential hypertension Qualified Code(s): I10 - Essential (primary) hypertension (4) Hypothyroid Current Visit: No Status: Chronic Assessment and plan: Continue patient's home levothyroxine Qualifiers: Hypothyroidism type: unspecified Qualified Code(s): E03.9 - Hypothyroidism, unspecified (5) DVT prophylaxis Current Visit: No Status: Acute Assessment and plan: Subcutaneous heparin (6) Diastolic heart failure Current Visit: No Status: Chronic Assessment and plan: No clinical evidence of CHF exacerbation at this time. Resume medical management with home meds Qualifiers: Heart failure chronicity: chronic Qualified Code(s): I50.32 - Chronic diastolic (congestive) heart failure - Time Spent With Patient Total time spent is greater than 50% in coordination of care (as documented) at patient's floor/unit and/or counseling patient:
[2018-07-04] MEDS ORDERED: *HR* HYDROcodone/Acet 5/325 mg TABLET PO PRN (00:54)
[2018-07-04] MEDS ORDERED: ALPRAZolam 0.5 MG TABLET PO PRN (00:54)
[2018-07-04] MEDS: Levofloxacin 500 MG/100 ML 500 MG/100 ML BAG IVPB SCH (01:22)
[2018-07-04] MEDS: Ipratropium/Albuterol Neb 3 ML IH SCH ×5 (03:30→22:33)
[2018-07-04 04:16] LABS: Basophils % 0.3 %; Eosinophils % 0.1 %; Hemoglobin 12.6 g/dL (11.5-15.4); Immature Granulocytes % 0.9 % (0-4); Lymphocytes # 0.5 K/mcL (0.6-4.6); Lymphocytes % 3.9 %; Mean Corpuscular Volume 90.1 fL (83.0-100.0); Mean Platelet Volume 10.8 fL (9.4-12.4); Monocytes # 0.2 K/mcL (0.0-1.3); Monocytes % 1.8 %; Neutrophils # 11.1 K/mcL (1.6-8.9); Platelet Count 267 K/mcL (140-400); Red Blood Count 4.66 M/mcL (3.82-4.97); Red Cell Distribution Width 13.9 % (11.5-14.5)
[2018-07-04 04:35] LABS: Alanine Aminotransferase 12 Units/L (7-52); Albumin/Globulin Ratio 1.2 (1.1-2.2); Alkaline Phosphatase 94 Units/L (34-104); Aspartate Amino Transferase 9 Units/L (13-39); BUN/Creatinine Ratio 21 (6-26); Bilirubin,Total 0.3 mg/dL (0.3-1.0); Blood Urea Nitrogen 13 mg/dL (6-20); Calcium 9.9 mg/dL (8.6-10.3); Carbon Dioxide 34 mEq/L (23-29); Chloride 100 mEq/L (98-107); Globulin 3.3 g/dL (2.4-3.5); Glucose 206 mg/dL (70-105); Osmolality,Calculated 298 (280-300); Sodium 141 mEq/L (136-145); Total Protein 7.3 g/dL (6.4-8.9); eGFR For Non-African Americans > 60 (> 60)
[2018-07-04] MEDS: MethylPREDNISolone 40 MG/ML VIAL IVP SCH ×3 (05:58→16:06)
[2018-07-04] MEDS: (Roflumilast [Daliresp] 500 MCG) PO SCH (09:27)
[2018-07-04] MEDS: Lisinopril 20 MG TABLET PO SCH (09:27)
[2018-07-04] MEDS: Aspirin Enteric Coated 81 MG Tablet PO SCH (09:27)
--- NOTE | 2018-07-04 13:39 | Internal Med Progress Note ---
Hospitalist Progress Note - Encounter Date of Encounter: 07/04/18 Time of Encounter: 11:30 - Subjective Interval History: Ms. Guadalupe is a 58 year old female with PMH of COPD (on 2L home O2), GILA on Bipap at home, diastolic CHF, hypertension, hyperlipidemia, and hypothyroidsim, presented to the emergency department with a 2 day history of progressively w orsening dyspnea and productive cough. She reports that her sputum production is dark in color, she is having dyspnea on exertion. On arrival patient was noted to be tachypneic and wheezing with increased work of breathing. Laboratory results were notable for a mild leukocytosis but otherwise unre markable. Chest x-ray suggestive of pulmonary vascular congestion. Patient was placed on BiPAP with significant improvement. She was admitted in the hospital and placed her on empirical antibiotic and IV steroids. Patient stated she is feeling better today. She still have moderate shortness of breath and dyspnea on exertion. She denied any chest pain. - Exam Vitals: Temp Pulse Resp BP Pulse Ox 97.7 F 78 16 152/84 95 07/04/18 11:15 07/04/18 11:15 07/04/18 11:50 07/04/18 11:15 07/04/18 11:50 Exam: Gen: Alert, awake, Oriented to time,place and person Chest: Diminished breath sounds B/L, Moderate wheezing, No crackles, No rales Heart: S1S2+ RRR No murmurs Abd: Soft, NT, BS +, No organomegaly Ext: No edema, pulses are palpable, No calf tenderness Neuro : Benign findings Skin: No rash. - Assessment and Plan (1) COPD exacerbation Current Visit: Yes Status: Acute Assessment and Plan: Cont systemic steroids therapy continue frequent bronchodilator therapy continue oxygen continue prophylactic antibiotic (2) Acute bronchitis Current Visit: Yes Status: Acute Assessment and Plan: Mostly bacterial ordered respiratory viral panel expertly culture Cont empirical antibiotic Levaquin (3) Hypothyroid Current Visit: No Status: Chronic Assessment and Plan: Continue patient's home levothyroxine (4) Hypertension Current Visit: No Status: Chronic Assessment and Plan: Fairly controlled resumed home meds on IV hydralazine (5) Diastolic congestive heart failure Current Visit: No Status: Chronic Assessment and Plan: No clinical evidence of CHF exacerbation at this time Resumed home meds (6) DVT prophylaxis Current Visit: No Status: Acute Assessment and Plan: Subcutaneous heparin - Time Spent with Patient Total time spent is greater than 50% in coordination of care (as documented) at patient's floor/unit and/or counseling patient: Internal Medicine: Result - Labs CBC & Chem 7: 07/04/18 03:21 07/04/18 03:21 Labs: Short CBC 07/03/18 07/04/18 Range/Units 21:12 03:21 WBC 12.5 H 12.0 H (4.3-11.1) K/mcL Hgb 13.0 12.6 (11.5-15.4) g/dL Hct 42.2 42.0 (35.3-44.9) % Plt Count 257 267 (140-400) K/mcL Neutrophils # 9.5 H 11.1 H (1.6-8.9) K/mcL BMP 07/03/18 07/04/18 21:12 03:21 Sodium 144 141 Potassium 3.6 4.0 Chloride 100 100 Carbon Dioxide 36 H 34 H BUN 12 13 Creatinine 0.70 0.62 Glucose 110 H 206 H Calcium 10.0 9.9 Cardiac Enzymes 07/03/18 Range/Units 21:12 Troponin I 0.03 (< 0.04) ng/mL Liver Function 07/04/18 Range/Units 03:21 Total Bilirubin 0.3 (0.3-1.0) mg/dL AST 9 L (13-39) Units/L ALT 12 (7-52) Units/L Alkaline Phosphatase 94 (34-104) Units/L Albumin 4.0 (3.5-5.7) g/dL - Impressions Impressions Chest X-Ray 07/03/18 20:08 IMPRESSION: Cardiomegaly. Pulmonary findings typical of congestive heart failure. Other diffuse interstitial processes may have the same appearance. D/ / Tl Faye / Tl Faye Interpreting Provider: Tl Faye Consult Discharge Plan - Plan Referrals: Yves Chapa MD [Primary Care Provider] - 07/11/18 3:15 pm (3) Hypothyroid Qualifiers: Hypothyroidism type: unspecified Qualified Code(s): E03.9 - Hypothyroidism, unspecified (4) Hypertension Qualifiers: Hypertension type: essential hypertension Qualified Code(s): I10 - Essential (primary) hypertension
[2018-07-04] MEDS: *HR* Heparin 5,000 UNIT/ML VIAL SQ SCH ×2 (14:58→20:54)
[2018-07-04] MEDS ORDERED: REQUIP PO SCH (21:00)
[2018-07-04] MEDS: rOPINIRole 1 MG TABLET PO SCH (22:01)
[2018-07-05] MEDS: MethylPREDNISolone 40 MG/ML VIAL IVP SCH ×3 (00:10→18:42)
[2018-07-05] MEDS: Levofloxacin 500 MG/100 ML 500 MG/100 ML BAG IVPB SCH (00:10)
[2018-07-05] MEDS: Ipratropium/Albuterol Neb 3 ML IH SCH ×4 (04:06→23:11)
[2018-07-05] MEDS: *HR* Heparin 5,000 UNIT/ML VIAL SQ SCH ×3 (05:47→22:45)
[2018-07-05] MEDS: Lisinopril 20 MG TABLET PO SCH (09:08)
[2018-07-05] MEDS: Aspirin Enteric Coated 81 MG Tablet PO SCH (09:08)
[2018-07-05] MEDS: (Roflumilast [Daliresp] 500 MCG) PO SCH (09:09)
--- NOTE | 2018-07-05 11:38 | Internal Med Progress Note ---
Hospitalist Progress Note - Encounter Date of Encounter: 07/05/18 Time of Encounter: 11:00 - Subjective Interval History: Ms. Guadalupe is a 58 year old female with PMH of COPD (on 2L home O2), GILA on Bipap at home, diastolic CHF, hypertension, hyperlipidemia, and hypothyroidsim, presented to the emergency department with a 2 day history of progressively worsening dyspnea and productive cough. She reports that her sputum production is dark in color, she is having dyspnea on exertion. On arrival patient was noted to be tachypneic and wheezing with increased work of breathing. Laboratory results were notable for a mild leukocytosis but otherwise unr emarkable. Chest x-ray suggestive of pulmonary vascular congestion. Patient was placed on BiPAP with significant improvement. She was admitted in the hospital and placed her on empirical antibiotic and IV steroids. Patient stated she is feeling better today. She still have moderate shortness of breath and dyspnea on exertion. She denied any chest pain. Currently on 3 lit O2. - Exam Vitals: Temp Pulse Resp BP Pulse Ox 97.9 F 62 16 132/56 97 07/05/18 07:48 07/05/18 07:48 07/05/18 10:39 07/05/18 07:48 07/05/18 10:39 Exam: Gen: Alert, awake, Oriented to time,place and person Chest: Diminished breath sounds B/L, moderate to severe wheezing, No crackles, No rales Heart: S1S2+ RRR No murmurs Abd: Soft, NT, BS +, No organomegaly Ext: No edema, pulses are palpable, No calf tenderness Neuro : Benign findings Skin: No rash. - Assessment and Plan (1) Acute bronchitis Current Visit: Yes Status: Acute Assessment and Plan: Mostly bacterial Her respiratory viral panel came back as negative fu on sputum culture Cont empirical antibiotic Levaquin (2) COPD exacerbation Current Visit: Yes Status: Acute Assessment and Plan: Improving Cont systemic steroids therapy start tapering steroids continue frequent bronchodilator therapy continue oxygen continue prophylactic antibiotic (3) Diastolic heart failure Current Visit: No Status: Chronic Assessment and Plan: No clinical evidence of CHF exacerbation at this time. Cont home meds (4) Hypothyroid Current Visit: No Status: Chronic Assessment and Plan: Continue patient's home levothyroxine (5) Hypertension Current Visit: No Status: Chronic Assessment and Plan: Blood pressure stable with home medications (6) DVT prophylaxis Current Visit: No Status: Acute Assessment and Plan: Subcutaneous heparin - Time Spent with Patient Total time spent is greater than 50% in coordination of care (as documented) at patient's floor/unit and/or counseling patient: Internal Medicine: Result - Labs CBC & Chem 7: 07/04/18 03:21 07/04/18 03:21 Consult Discharge Plan - Plan Referrals: Yves Chapa MD [Primary Care Provider] - 07/11/18 3:15 pm (3) Diastolic heart failure Qualifiers: Heart failure chronicity: chronic Qualified Code(s): I50.32 - Chronic diastolic (congestive) heart failure (4) Hypothyroid Qualifiers: Hypothyroidism type: unspecified Qualified Code(s): E03.9 - Hypothyroidism, unspecified (5) Hypertension Qualifiers: Hypertension type: essential hypertension Qualified Code(s): I10 - Essential (primary) hypertension
[2018-07-05] MEDS: rOPINIRole 1 MG TABLET PO SCH (20:16)
[2018-07-06] MEDS: Levofloxacin 500 MG/100 ML 500 MG/100 ML BAG IVPB SCH (01:05)
[2018-07-06] MEDS: Ipratropium/Albuterol Neb 3 ML IH SCH ×2 (05:02→10:08)
[2018-07-06] MEDS: MethylPREDNISolone 40 MG/ML VIAL IVP SCH (05:49)
[2018-07-06] MEDS: *HR* Heparin 5,000 UNIT/ML VIAL SQ SCH (05:49)
[2018-07-06 07:41] VITALS: BP 161/89
[2018-07-06] MEDS: Aspirin Enteric Coated 81 MG Tablet PO SCH (08:42)
[2018-07-06] MEDS: Lisinopril 20 MG TABLET PO SCH (08:42)
[2018-07-06] MEDS: (Roflumilast [Daliresp] 500 MCG) PO SCH (08:42)
--- NOTE | 2018-07-06 09:43 | Discharge Summary ---
- NOTES TO OUTPATIENT PROVIDER Notes to Outpatient Provider: f/u with PCP in one week. Orders not resulted at time of discharge: Pending orders 07/04/18 11:57 Culture,Sputum with Gram Stain [RM] Routine Date of Encounter: 07/06/18 Time of Encounter: 09:40 - Discharge Diagnosis (1) Acute bronchitis Priority: Primary Status: Acute Qualifiers: Qualified Code(s): J20.9 - Acute bronchitis, unspecified (2) COPD exacerbation Priority: Primary Status: Acute (3) Diastolic heart failure Priority: Secondary Status: Chronic Qualifiers: Heart failure chronicity: chronic Qualified Code(s): I50.32 - Chronic diastolic (congestive) heart failure (4) Hypothyroid Priority: Secondary Status: Chronic Qualifiers: Hypothyroidism type: unspecified Qualified Code(s): E03.9 - Hypothyroidism, unspecified (5) Hypertension Priority: Secondary Status: Chronic Qualifiers: Hypertension type: essential hypertension Qualified Code(s): I10 - Essential (primary) hypertension (6) DVT prophylaxis Priority: Secondary Status: Acute Hospital course: Ms. Guadalupe is a 58 year old female with PMH of COPD (on 2L home O2), GILA on Bipap at home, diastolic CHF, hypertension, hyperlipidemia, and hypothyroidsim, presented to the emergency department with a 2 day history of progressively worsening dyspnea and productive cough. She reports that her sputum production is dark in color, she is having dyspnea on exertion. On arrival patient was noted to be tachypneic and wheezing with increased work of breathing. Laboratory results were notable for a mild leukocytosis but otherwise unremarkable. Chest x-ray suggestive of pulmonary vascular congestion. Patient was placed on BiPAP with significant improvement. She was admitted in the hospital and placed her on empirical antibiotic Levaquin, IV steroids and frequent bronchodilators. Her respiratory viral panel came back as negative. Her symptoms started improving slowly. Patient states she is back to baseline today. So will discharge her home in a stable condition today with tapering dose of oral steroids and antibiotic levofloxacin. Currently she is breathing comfortably on 3 lit O2. - Time Spent with Patient Total time spent providing and/or coordinating discharge services: - Discharge Medications Prescriptions: New levoFLOXacin [Levaquin] 500 mg PO DAILY #4 tablet predniSONE [PredniSONE] 40 mg PO DAILY #10 tablet Continue ALPRAZolam [Xanax 0.5 MG Tablet] 0.5 mg PO DAILY PRN PRN Reason: Anxiety Roflumilast [Daliresp] 500 mcg PO DAILY Aspirin Enteric Coated [Aspirin EC] 81 mg PO DAILY #30 tablet. Furosemide [Lasix] 40 mg PO DAILY Levothyroxine Sodium [Synthroid] 200 mcg PO DAILY Fluticasone Propionate Nasal [Flonase] 1 spray NS DAILY Budesonide/Formoterol 160/4.5 [Symbicort 160/4.5] 2 puff IH BID Tiotropium Peerless [Spiriva Respimat] 2 puff IH DAILY Lisinopril [Zestril] 40 mg PO DAILY Meloxicam [Mobic] 15 mg PO DAILY PRN PRN Reason: Pain Potassium Chloride 10 meq PO BID PRN PRN Reason: low potassium Oxybutynin Chloride [Ditropan Xl] 10 mg PO DAILY #14 tab.er.24 Atorvastatin Calcium [Lipitor] 20 mg PO DAILY Diclofenac Sodium [Voltaren] 4 gm TP TID PRN PRN Reason: Pain FLUoxetine HCl [Fluoxetine HCl] 40 mg PO DAILY HYDROcodone/Acet 5/325 mg [[place] 5-325 mg] 1 tab PO BID PRN PRN Reason: Pain Ipratropium/Albuterol Neb [Duoneb] 3 ml IH Q6H PRN PRN Reason: Shortness Of Breath Albuterol Sulfate [Albuterol Inhaler] 2 puff IH Q6H PRN PRN Reason: Shortness Of Breath Oxygen 2 l IH CONT rOPINIRole [Requip] 4 mg PO HS Home Medications: ALPRAZolam [Xanax 0.5 MG Tablet] 0.5 mg PO DAILY PRN 02/11/15 [History] Roflumilast [Daliresp] 500 mcg PO DAILY 07/23/16 [History] Aspirin Enteric Coated [Aspirin EC] 81 mg PO DAILY #30 tablet. 07/25/16 [Rx] Fluticasone Propionate Nasal [Flonase] 1 spray NS DAILY 04/01/17 [History] Furosemide [Lasix] 40 mg PO DAILY 04/01/17 [History] Levothyroxine Sodium [Synthroid] 200 mcg PO DAILY 04/01/17 [History] Budesonide/Formoterol 160/4.5 [Symbicort 160/4.5] 2 puff IH BID 07/02/17 [History] Lisinopril [Zestril] 40 mg PO DAILY 07/02/17 [History] Meloxicam [Mobic] 15 mg PO DAILY PRN 07/02/17 [History] Potassium Chloride 10 meq PO BID PRN 07/02/17 [History] Tiotropium Peerless [Spiriva Respimat] 2 puff IH DAILY 07/02/17 [History] Oxybutynin Chloride [Ditropan Xl] 10 mg PO DAILY #14 tab.er.24 05/29/18 [Rx] Albuterol Sulfate [Albuterol Inhaler] 2 puff IH Q6H PRN 07/04/18 [History] Atorvastatin Calcium [Lipitor] 20 mg PO DAILY 07/04/18 [History] Diclofenac Sodium [Voltaren] 4 gm TP TID PRN 07/04/18 [History] FLUoxetine HCl [Fluoxetine HCl] 40 mg PO DAILY 07/04/18 [History] HYDROcodone/Acet 5/325 mg [[place] 5-325 mg] 1 tab PO BID PRN 07/04/18 [History] Ipratropium/Albuterol Neb [Duoneb] 3 ml IH Q6H PRN 07/04/18 [History] Oxygen 2 l IH CONT 07/04/18 [History] rOPINIRole [Requip] 4 mg PO HS 07/04/18 [History] levoFLOXacin [Levaquin] 500 mg PO DAILY #4 tablet 07/06/18 [Rx] predniSONE [PredniSONE] 40 mg PO DAILY #10 tablet 07/06/18 [Rx] Allergies/Adverse Reactions: Allergy/AdvReac Type Severity Reaction Status Date / Time Temazepam [From Restoril] Allergy "Hives, Verified 07/04/18 21:57 EYES SWELL SHUT" Date of admission: 07/03/18 23:12 Primary care physician: Yves Cahpa MD Consults: 07/04/18 00:51 Consult to Nurse Navigator [CONS] Routine Comment: 07/04/18 09:31 Consult to Nurse Navigator [CONS] Routine Comment: COPD - Constitutional Vitals: Temp Pulse Resp BP Pulse Ox 97.9 F 54 17 161/89 95 07/06/18 07:40 07/06/18 07:40 07/06/18 07:40 07/06/18 07:40 07/06/18 07:40 General appearance: Present: A&O X 3, no acute distress, answers questions appropriately Exam: Gen: Alert, awake, Oriented to time,place and person Chest: Diminished breath sounds B/L, moderate wheezing, No crackles, No rales Heart: S1S2+ RRR No murmurs Abd: Soft, NT, BS +, No organomegaly Ext: No edema, pulses are palpable, No calf tenderness Neuro : Benign findings Skin: No rash. - Patient Status Disposition: Home, Self-Care Condition: Good Overall status at discharge: patient is back to baseline - Discharge Instructions Follow Up With: Yves Chapa MD [Primary Care Provider] - 07/11/18 3:15 pm Forms: ED Satisfaction Letter - Diet and Activity Activity: increase activity as tolerated, wear oxygen at all times Diet: low salt diet
--- NOTE | 2018-07-07 10:05 | Electrocardiograph Report ---
[place] [id number] Test Date: 2018-07-03 Pat Name: Kate Guadalupe Department: [id number] Room: 3B Gender: F [employer]: [id number] : 1960 Requested By: Eric Mooney Order Number: [id number] Reading MD: Torsten Bynum Measurements Intervals [place] Rate: 80 P: 44 AK: 151 QRS: 22 QRSD: 93 T: 64 QT: 354 QTc: 390 Interpretive Statements SINUS RHYTHM Electronically Signed On 07-07-2018 10:03:22 EDT by Torsten Bynum
== END 2018-07-06 10:53 | disposition home or self-care (01) ==
LOC: 3BNU 20:01 → EMEROOARM 20:01 → SUATTDRO 23:12 → 3BNU 23:38
PROVIDERS: ADMIT Internal Medicine; ATTEND Family Medicine

== ENCOUNTER 2019-05-23 20:37 | Observation (INO) ==
[2019-05-23] MEDS ORDERED: Ipratropium/Albuterol Neb 3 ML IH ONE (21:39)
[2019-05-23] MEDS ORDERED: methylPREDNISolone 125 MG/2 ML VIAL IVP ONE (21:39)
[2019-05-23 22:06] LABS: Basophils # 0.1 K/mcL (0.0-0.2); Basophils % 0.5 %; Eosinophils # 0.3 K/mcL (0.0-0.6); Eosinophils % 2.4 %; Hematocrit 42.8 % (35.3-44.9); Hemoglobin 13.4 g/dL (11.5-15.4); Immature Granulocytes % 0.4 % (0-4); Lymphocytes # 1.3 K/mcL (0.6-4.6); Lymphocytes % 10.9 %; Mean Corpuscular HGB Conc 31.3 g/dL (31.6-35.5); Mean Corpuscular Hemoglobin 27.6 pg (28.0-33.3); Mean Corpuscular Volume 88.1 fL (83.0-100.0); Monocytes # 1.1 K/mcL (0.0-1.3); Monocytes % 9.4 %; Neutrophils # 9.1 K/mcL (1.6-8.9); Platelet Count 256 K/mcL (140-400); Red Blood Count 4.86 M/mcL (3.82-4.97); Red Cell Distribution Width 14.4 % (11.5-14.5); Segmented Neutrophils % 76.4 %; White Blood Count 11.9 K/mcL (4.3-11.1)
[2019-05-23 22:26] LABS: BUN/Creatinine Ratio 20 (6-26); Blood Urea Nitrogen 16 mg/dL (8-23); Calcium 9.6 mg/dL (8.6-10.3); Carbon Dioxide 33 mEq/L (23-29); Chloride 105 mEq/L (98-107); Glucose 99 mg/dL (70-105); Osmolality,Calculated 301 (280-300); Potassium 3.8 mEq/L (3.5-5.1); Sodium 145 mEq/L (136-145); eGFR For African Americans > 60 (> 60); eGFR For Non-African Americans > 60 (> 60)
[2019-05-23 22:27] LABS: Troponin I < 0.03 ng/mL (< 0.04)
[2019-05-24] MEDS ORDERED: Ondansetron 4 MG/2 ML VIAL IVP PRN (00:05)
[2019-05-24] MEDS ORDERED: Acetaminophen 325 MG TABLET PO PRN (00:05)
[2019-05-24] MEDS ORDERED: Naloxone 0.4 MG/ML INJ IVP PRN (00:05)
[2019-05-24] MEDS ORDERED: *HR* Dextrose 50 % in Water (Syg) 50 ML SYRINGE IVP PRN (00:08)
[2019-05-24] MEDS ORDERED: *HR* HYDROcodone/Acet 5/325 mg TABLET PO PRN ×2 (00:08→08:35)
[2019-05-24] MEDS ORDERED: ALPRAZolam 0.5 MG TABLET PO PRN (00:08)
[2019-05-24] MEDS ORDERED: Ipratropium/Albuterol Neb 3 ML IH PRN (00:08)
[2019-05-24] MEDS ORDERED: D5% in Water 1,000 ML IVC PRN (00:08)
[2019-05-24] MEDS ORDERED: Dextrose Gel 15 GM/37.5 ML TUBE PO PRN ×2 (00:08)
[2019-05-24] MEDS ORDERED: NON-FORMULARY MEDICATION 1 EACH EACH (Oxygen 2 L) IH SCH (00:15)
[2019-05-24 01:42] LABS: Basophils # 0.1 K/mcL (0.0-0.2); Basophils % 0.5 %; Eosinophils # 0.1 K/mcL (0.0-0.6); Eosinophils % 0.6 %; Hematocrit 42.7 % (35.3-44.9); Hemoglobin 13.1 g/dL (11.5-15.4); Immature Granulocytes % 0.4 % (0-4); Lymphocytes # 0.5 K/mcL (0.6-4.6); Lymphocytes % 3.7 %; Mean Corpuscular HGB Conc 30.7 g/dL (31.6-35.5); Mean Corpuscular Hemoglobin 27.3 pg (28.0-33.3); Mean Corpuscular Volume 89.1 fL (83.0-100.0); Mean Platelet Volume 10.4 fL (9.4-12.4); Monocytes # 0.3 K/mcL (0.0-1.3); Monocytes % 2.2 %; Neutrophils # 11.6 K/mcL (1.6-8.9); Platelet Count 237 K/mcL (140-400); Red Blood Count 4.79 M/mcL (3.82-4.97); Red Cell Distribution Width 14.5 % (11.5-14.5); Segmented Neutrophils % 92.6 %; White Blood Count 12.5 K/mcL (4.3-11.1)
[2019-05-24 02:02] LABS: Alanine Aminotransferase 13 Units/L (7-52); Albumin/Globulin Ratio 1.3 (1.1-2.2); Alkaline Phosphatase 86 Units/L (34-104); Aspartate Amino Transferase 9 Units/L (13-39); BUN/Creatinine Ratio 20 (6-26); Bilirubin,Total 0.5 mg/dL (0.3-1.0); Blood Urea Nitrogen 16 mg/dL (8-23); Calcium 9.4 mg/dL (8.6-10.3); Carbon Dioxide 28 mEq/L (23-29); Chloride 103 mEq/L (98-107); Globulin 3.1 g/dL (2.4-3.5); Glucose 216 mg/dL (70-105); Osmolality,Calculated 302 (280-300); Potassium 3.6 mEq/L (3.5-5.1); Sodium 142 mEq/L (136-145); Total Protein 7.1 g/dL (6.4-8.9); eGFR For African Americans > 60 (> 60); eGFR For Non-African Americans > 60 (> 60)
[2019-05-24] MEDS: *HR* Heparin 5,000 UNIT/ML VIAL SQ SCH ×3 (05:31→20:42)
[2019-05-24] MEDS ORDERED: MethylPREDNISolone 40 MG/ML VIAL IVP SCH (08:00)
[2019-05-24] MEDS: Budesonide/Formoterol 160/4.5 1 PUFF INH IH SCH ×2 (08:07→22:04)
[2019-05-24] MEDS: Lisinopril 20 MG TABLET PO SCH (09:44)
[2019-05-24] MEDS: FLUoxetine 20 MG CAPSULE PO SCH (09:44)
[2019-05-24] MEDS: MethylPREDNISolone 40 MG/ML VIAL IVP SCH ×2 (09:44→20:41)
[2019-05-24] MEDS: Furosemide 40 MG TABLET PO SCH (09:45)
[2019-05-24] MEDS: levoFLOXacin 750 MG/150 ML 750 MG/150 ML BAG IVPB SCH (09:45)
[2019-05-24] MEDS: Fluticasone Propionate Nasal 50 MCG/SPRAY BOTTLE NS SCH (09:45)
[2019-05-24] MEDS: Aspirin Enteric Coated 81 MG Tablet PO SCH (09:45)
[2019-05-24] MEDS: Insulin LISPRO 300 UNITS/3 ML VIAL SQ SCH ×4 (10:11→20:42)
[2019-05-24] MEDS: Tiotropium 18 MCG inhalation IH SCH (10:21)
[2019-05-24] MEDS: Ipratropium/Albuterol Neb 3 ML IH SCH ×2 (15:35→22:04)
[2019-05-24] MEDS: rOPINIRole 1 MG TABLET PO SCH (20:41)
[2019-05-25] MEDS: Ipratropium/Albuterol Neb 3 ML IH SCH ×4 (03:51→21:24)
[2019-05-25 05:05] LABS: Basophils % 0.1 %; Hematocrit 41.3 % (35.3-44.9); Immature Granulocytes % 0.9 % (0-4); Lymphocytes # 0.7 K/mcL (0.6-4.6); Lymphocytes % 5.3 %; Mean Corpuscular HGB Conc 31.5 g/dL (31.6-35.5); Mean Corpuscular Hemoglobin 27.1 pg (28.0-33.3); Mean Corpuscular Volume 86.2 fL (83.0-100.0); Mean Platelet Volume 10.6 fL (9.4-12.4); Monocytes # 0.6 K/mcL (0.0-1.3); Monocytes % 4.4 %; Platelet Count 263 K/mcL (140-400); Red Blood Count 4.79 M/mcL (3.82-4.97); Red Cell Distribution Width 14.4 % (11.5-14.5); Segmented Neutrophils % 89.3 %; White Blood Count 13.5 K/mcL (4.3-11.1)
[2019-05-25] MEDS: *HR* Heparin 5,000 UNIT/ML VIAL SQ SCH ×3 (05:30→20:56)
[2019-05-25] MEDS: Insulin LISPRO 300 UNITS/3 ML VIAL SQ SCH ×4 (09:37→20:54)
[2019-05-25] MEDS: levoFLOXacin 750 MG/150 ML 750 MG/150 ML BAG IVPB SCH (09:37)
[2019-05-25] MEDS: MethylPREDNISolone 40 MG/ML VIAL IVP SCH ×2 (09:38→20:56)
[2019-05-25] MEDS: Lisinopril 20 MG TABLET PO SCH (09:38)
[2019-05-25] MEDS: FLUoxetine 20 MG CAPSULE PO SCH (09:38)
[2019-05-25] MEDS: Furosemide 40 MG TABLET PO SCH (09:38)
[2019-05-25] MEDS: Aspirin Enteric Coated 81 MG Tablet PO SCH (09:38)
[2019-05-25] MEDS: Fluticasone Propionate Nasal 50 MCG/SPRAY BOTTLE NS SCH (09:39)
[2019-05-25] MEDS: Budesonide/Formoterol 160/4.5 1 PUFF INH IH SCH ×2 (11:00→21:28)
[2019-05-25] MEDS: Tiotropium 18 MCG inhalation IH SCH (11:01)
[2019-05-25] MEDS: rOPINIRole 1 MG TABLET PO SCH (20:56)
[2019-05-26] MEDS: Ipratropium/Albuterol Neb 3 ML IH SCH ×2 (03:55→09:57)
[2019-05-26] MEDS: *HR* Heparin 5,000 UNIT/ML VIAL SQ SCH (05:54)
[2019-05-26 06:58] VITALS: BP 149/76
[2019-05-26] MEDS: Insulin LISPRO 300 UNITS/3 ML VIAL SQ SCH (09:44)
[2019-05-26] MEDS: levoFLOXacin 750 MG/150 ML 750 MG/150 ML BAG IVPB SCH (09:44)
[2019-05-26] MEDS: FLUoxetine 20 MG CAPSULE PO SCH (09:45)
[2019-05-26] MEDS: MethylPREDNISolone 40 MG/ML VIAL IVP SCH (09:45)
[2019-05-26] MEDS: Furosemide 40 MG TABLET PO SCH (09:45)
[2019-05-26] MEDS: Aspirin Enteric Coated 81 MG Tablet PO SCH (09:45)
[2019-05-26] MEDS: Lisinopril 20 MG TABLET PO SCH (09:45)
[2019-05-26] MEDS: Fluticasone Propionate Nasal 50 MCG/SPRAY BOTTLE NS SCH (09:46)
[2019-05-26] MEDS: Budesonide/Formoterol 160/4.5 1 PUFF INH IH SCH (09:57)
[2019-05-26] MEDS: Tiotropium 18 MCG inhalation IH SCH (09:59)
== END 2019-05-26 15:38 | disposition home or self-care (01) ==
LOC: 3ANU 20:37 → EMEROOARM 20:37 → SUATTDRO 23:37 → 3ANU 23:58
PROVIDERS: ADMIT Family Medicine; ATTEND Internal Medicine

== ENCOUNTER 2020-05-08 19:17 | Inpatient (IN) ==
[2020-05-08] MEDS ORDERED: Ipratropium/Albuterol Neb 3 ML IH ONE (19:35)
[2020-05-08] MEDS ORDERED: methylPREDNISolone 125 MG/2 ML VIAL IVP ONE (19:39)
[2020-05-08] MEDS ORDERED: Ondansetron 4 MG/2 ML VIAL IVP ONE (19:46)
[2020-05-08 20:00] LABS: Basophils # 0.1 K/mcL (0.0-0.2); Basophils % 0.5 %; Eosinophils # 0.3 K/mcL (0.0-0.6); Eosinophils % 2.7 %; Hematocrit 39.3 % (35.3-44.9); Hemoglobin 11.6 g/dL (11.5-15.4); Immature Granulocytes % 0.3 % (0-4); Lymphocytes # 1.6 K/mcL (0.6-4.6); Lymphocytes % 15.1 %; Mean Corpuscular HGB Conc 29.5 g/dL (31.6-35.5); Mean Corpuscular Hemoglobin 26.7 pg (28.0-33.3); Mean Corpuscular Volume 90.3 fL (83.0-100.0); Mean Platelet Volume 10.6 fL (9.4-12.4); Monocytes # 0.7 K/mcL (0.0-1.3); Monocytes % 7.1 %; Neutrophils # 7.7 K/mcL (1.6-8.9); Platelet Count 222 K/mcL (140-400); Red Blood Count 4.35 M/mcL (3.82-4.97); Red Cell Distribution Width 14.4 % (11.5-14.5); Segmented Neutrophils % 74.3 %; White Blood Count 10.4 K/mcL (4.3-11.1)
[2020-05-08 20:20] LABS: BUN/Creatinine Ratio 13 (6-26); Blood Urea Nitrogen 10 mg/dL (8-23); Calcium 9.1 mg/dL (8.6-10.3); Carbon Dioxide 33 mEq/L (23-29); Chloride 101 mEq/L (98-107); Glucose 164 mg/dL (70-105); Osmolality,Calculated 293 (280-300); Potassium 3.9 mEq/L (3.5-5.1); Sodium 140 mEq/L (136-145); eGFR For African Americans > 60 (> 60); eGFR For Non-African Americans > 60 (> 60)
[2020-05-08 20:21] LABS: Troponin I < 0.03 ng/mL (< 0.04)
[2020-05-08] MEDS ORDERED: Furosemide 40 MG/4 ML VIAL IVP ONE (20:41)
[2020-05-08] MEDS ORDERED: ALPRAZolam 0.5 MG TABLET PO PRN (23:02)
[2020-05-08] MEDS ORDERED: Ondansetron 4 MG/2 ML VIAL IVP PRN (23:05)
[2020-05-08] MEDS ORDERED: Naloxone 0.4 MG/ML INJ IVP PRN (23:05)
[2020-05-08] MEDS ORDERED: Albuterol 2.5 MG/3 ML NEBULIZER IH PRN (23:05)
[2020-05-09 01:17] LABS: Basophils % 0.2 %; Red Cell Distribution Width 14.5 % (11.5-14.5)
[2020-05-09 01:18] LABS: Eosinophils % 0.1 %; Hematocrit 42.3 % (35.3-44.9); Hemoglobin 12.7 g/dL (11.5-15.4); Immature Granulocytes % 0.3 % (0-4); Lymphocytes # 0.4 K/mcL (0.6-4.6); Lymphocytes % 3.4 %; Mean Platelet Volume 10.7 fL (9.4-12.4); Monocytes # 0.1 K/mcL (0.0-1.3); Monocytes % 1.3 %; Neutrophils # 9.8 K/mcL (1.6-8.9); Platelet Count 229 K/mcL (140-400); Segmented Neutrophils % 94.7 %; White Blood Count 10.3 K/mcL (4.3-11.1)
[2020-05-09] MEDS: Albuterol 2.5 MG/3 ML NEBULIZER IH SCH ×7 (01:20→23:40)
[2020-05-09 01:35] LABS: BUN/Creatinine Ratio 14 (6-26); Blood Urea Nitrogen 10 mg/dL (8-23); Calcium 9.7 mg/dL (8.6-10.3); Carbon Dioxide 34 mEq/L (23-29); Chloride 99 mEq/L (98-107); Glucose 170 mg/dL (70-105); Osmolality,Calculated 295 (280-300); Potassium 3.9 mEq/L (3.5-5.1); Sodium 141 mEq/L (136-145); eGFR For African Americans > 60 (> 60); eGFR For Non-African Americans > 60 (> 60)
[2020-05-09] MEDS: FLUoxetine 20 MG CAPSULE PO SCH (08:07)
[2020-05-09] MEDS: Aspirin Enteric Coated 81 MG Tablet PO SCH (08:07)
[2020-05-09] MEDS: predniSONE 20 MG TABLET PO SCH (08:07)
[2020-05-09] MEDS: Metoprolol XL (24 HR) Succ 50 MG TAB.ER.24H PO SCH (08:07)
[2020-05-09] MEDS: lisinopriL 20 MG TABLET PO SCH (08:07)
[2020-05-09] MEDS ORDERED: Roflumilast [Daliresp] 500 MCG PO SCH (09:00)
[2020-05-09] MEDS ORDERED: Furosemide 40 MG/4 ML VIAL IVP ONE (09:00)
[2020-05-09] MEDS ORDERED: *HR* Rivaroxaban 10 MG TABLET PO SCH (09:00)
[2020-05-09] MEDS ORDERED: Torsemide 20 MG TABLET PO SCH (09:00)
[2020-05-09] MEDS ORDERED: Isovue-370 500 ML BOTTLE IVP ONE (11:27)
[2020-05-09] MEDS: Fluticasone Propionate Nasal 50 MCG/SPRAY BOTTLE NS SCH (11:55)
[2020-05-09] MEDS ORDERED: Furosemide 40 MG TABLET PO SCH (17:00)
[2020-05-09] MEDS: Ropinirole Hcl [Requip Xl] 4 MG PO SCH (19:41)
[2020-05-09] MEDS: Acetaminophen 325 MG TABLET PO PRN (19:44)
[2020-05-09] MEDS: Budesonide/Formoterol 160/4.5 1 PUFF INH IH SCH (19:56)
[2020-05-10 02:00] LABS: Basophils % 0.2 %; Eosinophils % 0.1 %; Hematocrit 37.7 % (35.3-44.9); Immature Granulocytes % 0.3 % (0-4); Lymphocytes # 1.4 K/mcL (0.6-4.6); Mean Corpuscular HGB Conc 29.4 g/dL (31.6-35.5); Mean Corpuscular Hemoglobin 26.2 pg (28.0-33.3); Mean Corpuscular Volume 88.9 fL (83.0-100.0); Mean Platelet Volume 11.1 fL (9.4-12.4); Monocytes # 1.3 K/mcL (0.0-1.3); Monocytes % 10.4 %; Neutrophils # 9.7 K/mcL (1.6-8.9); Platelet Count 241 K/mcL (140-400); Red Blood Count 4.24 M/mcL (3.82-4.97); Red Cell Distribution Width 14.7 % (11.5-14.5); White Blood Count 12.4 K/mcL (4.3-11.1)
[2020-05-10 02:01] LABS: Hemoglobin 11.1 g/dL (11.5-15.4)
[2020-05-10 02:19] LABS: BUN/Creatinine Ratio 23 (6-26); Blood Urea Nitrogen 24 mg/dL (8-23); Calcium 9.3 mg/dL (8.6-10.3); Carbon Dioxide 37 mEq/L (23-29); Chloride 98 mEq/L (98-107); Glucose 101 mg/dL (70-105); Osmolality,Calculated 298 (280-300); Potassium 3.9 mEq/L (3.5-5.1); Sodium 142 mEq/L (136-145); eGFR For African Americans > 60 (> 60); eGFR For Non-African Americans 53 (> 60)
[2020-05-10] MEDS: Albuterol 2.5 MG/3 ML NEBULIZER IH SCH ×6 (03:49→23:11)
[2020-05-10] MEDS: Tiotropium 10 INH DOSE IH SCH (07:25)
[2020-05-10] MEDS: Budesonide/Formoterol 160/4.5 1 PUFF INH IH SCH ×2 (07:26→19:57)
[2020-05-10] MEDS: Furosemide 40 MG TABLET PO SCH (09:22)
[2020-05-10] MEDS: predniSONE 20 MG TABLET PO SCH (09:22)
[2020-05-10] MEDS: Aspirin Enteric Coated 81 MG Tablet PO SCH (09:22)
[2020-05-10] MEDS: Fluticasone Propionate Nasal 50 MCG/SPRAY BOTTLE NS SCH (09:22)
[2020-05-10] MEDS: FLUoxetine 20 MG CAPSULE PO SCH (09:22)
[2020-05-10] MEDS: lisinopriL 20 MG TABLET PO SCH (09:23)
[2020-05-10] MEDS: Metoprolol XL (24 HR) Succ 50 MG TAB.ER.24H PO SCH (09:23)
[2020-05-10] MEDS: Acetaminophen 325 MG TABLET PO PRN (09:24)
[2020-05-10] MEDS ORDERED: *HR* Rivaroxaban 10 MG TABLET PO SCH (17:00)
[2020-05-10] MEDS: Ropinirole Hcl [Requip Xl] 4 MG PO SCH (17:12)
[2020-05-11 03:55] LABS: Basophils % 0.4 %; Eosinophils % 0.3 %; Hematocrit 39.5 % (35.3-44.9); Hemoglobin 11.7 g/dL (11.5-15.4); Immature Granulocytes % 0.3 % (0-4); Lymphocytes # 1.5 K/mcL (0.6-4.6); Lymphocytes % 14.9 %; Mean Corpuscular HGB Conc 29.6 g/dL (31.6-35.5); Mean Corpuscular Hemoglobin 27.3 pg (28.0-33.3); Mean Corpuscular Volume 92.1 fL (83.0-100.0); Monocytes # 0.9 K/mcL (0.0-1.3); Neutrophils # 7.3 K/mcL (1.6-8.9); Platelet Count 230 K/mcL (140-400); Red Blood Count 4.29 M/mcL (3.82-4.97); Red Cell Distribution Width 14.8 % (11.5-14.5); Segmented Neutrophils % 75.1 %; White Blood Count 9.8 K/mcL (4.3-11.1)
[2020-05-11] MEDS: Albuterol 2.5 MG/3 ML NEBULIZER IH SCH ×3 (04:06→11:09)
[2020-05-11 04:12] LABS: BUN/Creatinine Ratio 27 (6-26); Blood Urea Nitrogen 18 mg/dL (8-23); Calcium 9.2 mg/dL (8.6-10.3); Carbon Dioxide 39 mEq/L (23-29); Chloride 100 mEq/L (98-107); Glucose 117 mg/dL (70-105); Osmolality,Calculated 301 (280-300); Potassium 3.8 mEq/L (3.5-5.1); Sodium 144 mEq/L (136-145); eGFR For African Americans > 60 (> 60); eGFR For Non-African Americans > 60 (> 60)
[2020-05-11 07:19] VITALS: BP 137/65
[2020-05-11] MEDS: Tiotropium 10 INH DOSE IH SCH (07:31)
[2020-05-11] MEDS: Budesonide/Formoterol 160/4.5 1 PUFF INH IH SCH (07:31)
[2020-05-11] MEDS: predniSONE 20 MG TABLET PO SCH (09:14)
[2020-05-11] MEDS: lisinopriL 20 MG TABLET PO SCH (09:14)
[2020-05-11] MEDS: FLUoxetine 20 MG CAPSULE PO SCH (09:14)
[2020-05-11] MEDS: Furosemide 40 MG TABLET PO SCH (09:14)
[2020-05-11] MEDS: Metoprolol XL (24 HR) Succ 50 MG TAB.ER.24H PO SCH (09:15)
[2020-05-11] MEDS: Fluticasone Propionate Nasal 50 MCG/SPRAY BOTTLE NS SCH (09:15)
[2020-05-11] MEDS: Aspirin Enteric Coated 81 MG Tablet PO SCH (09:15)
[2020-05-11] MEDS: Acetaminophen 325 MG TABLET PO PRN (09:22)
== END 2020-05-11 13:04 | disposition home or self-care (01) | DRG 291 ==
LOC: EMEROOARM 19:17 → 2ANU 19:17 → OBSVTOIN 22:39 → SUATTDRO 22:39 → 2ANU 22:58
PROVIDERS: ADMIT Internal Medicine; ATTEND Internal Medicine

== ENCOUNTER 2020-10-27 22:49 | Inpatient (IN) ==
[2020-10-27] MEDS ORDERED: methylPREDNISolone 125 MG/2 ML VIAL IVP ONE (23:37)
[2020-10-27] MEDS ORDERED: Ipratropium/Albuterol Neb 3 ML IH ONE (23:37)
[2020-10-27] MEDS ORDERED: Ondansetron 4 MG/2 ML VIAL IVP ONE (23:39)
[2020-10-28 00:06] LABS: Basophils % 0.1 %; Eosinophils # 0.1 K/mcL (0.0-0.6); Hematocrit 41.7 % (35.3-44.9); Hemoglobin 12.9 g/dL (11.5-15.4); Immature Granulocytes % 0.9 % (0-4); Lymphocytes # 0.8 K/mcL (0.6-4.6); Lymphocytes % 9.3 %; Mean Corpuscular HGB Conc 30.9 g/dL (31.6-35.5); Mean Corpuscular Hemoglobin 27.6 pg (28.0-33.3); Mean Corpuscular Volume 89.1 fL (83.0-100.0); Mean Platelet Volume 10.2 fL (9.4-12.4); Monocytes # 0.8 K/mcL (0.0-1.3); Monocytes % 9.3 %; Neutrophils # 6.9 K/mcL (1.6-8.9); Platelet Count 245 K/mcL (140-400); Red Blood Count 4.68 M/mcL (3.82-4.97); Red Cell Distribution Width 14.5 % (11.5-14.5); Segmented Neutrophils % 79.4 %; White Blood Count 8.7 K/mcL (4.3-11.1)
[2020-10-28 00:09] LABS: BUN/Creatinine Ratio 12 (6-26); Blood Urea Nitrogen 8 mg/dL (8-23); Calcium 9.3 mg/dL (8.6-10.3); Carbon Dioxide 34 mEq/L (23-29); Chloride 101 mEq/L (98-107); Glucose 120 mg/dL (70-105); Osmolality,Calculated 296 (280-300); Potassium 3.6 mEq/L (3.5-5.1); Sodium 143 mEq/L (136-145); Troponin I < 0.03 ng/mL (< 0.04); eGFR For African Americans > 60 (> 60); eGFR For Non-African Americans > 60 (> 60)
[2020-10-28] MEDS ORDERED: Furosemide 40 MG/4 ML VIAL IVP ONE (00:31)
[2020-10-28 01:44] LABS: Adenovirus Not Detected (Not Detect); Bordetella Pertussis Not Detected (Not Detect); Chlamydophila pneumoniae Not Detected (Not Detect); Coronavirus 229E Not Detected (Not Detect); Coronavirus HKU1 Not Detected (Not Detect); Coronavirus NL63 Not Detected (Not Detect); Coronavirus OC43 Not Detected (Not Detect); Human Metapneumovirus Not Detected (Not Detect); Human Rhinovirus/Enterovirus DETECTED (Not Detect); Influenza A Subtype 2009 H1 Not Detected (Not Detect); Influenza B Not Detected (Not Detect); Mycoplasma pneumoniae Not Detected (Not Detect); Parainfluenza Virus 1 Not Detected (Not Detect); Parainfluenza Virus 2 Not Detected (Not Detect); Parainfluenza Virus 3 Not Detected (Not Detect); Parainfluenza Virus 4 Not Detected (Not Detect); Respiratory Syncytial Virus Not Detected (Not Detect); SARS-CoV-2 Not Detected (Not Detect)
[2020-10-28] MEDS ORDERED: Azithromycin 500 MG in 0.9 % Sodium Chloride 250 ML IVPB ONE (02:04)
[2020-10-28] MEDS ORDERED: cefTRIAXone 1,000 MG in Water for inj. (sterile) 10 ML IVP ONE (02:04)
[2020-10-28] MEDS ORDERED: Melatonin 3 MG TABLET PO PRN (02:57)
[2020-10-28] MEDS ORDERED: *HR* Promethazine 25 MG/ML VIAL IM PRN (02:57)
[2020-10-28] MEDS ORDERED: *HR* HYDROcodone/Acet 5/325 mg TABLET PO PRN (02:57)
[2020-10-28] MEDS ORDERED: Acetaminophen 325 MG TABLET PO PRN (02:57)
[2020-10-28] MEDS ORDERED: Ondansetron 4 MG/2 ML VIAL IVP PRN (02:57)
[2020-10-28] MEDS ORDERED: Naloxone 0.4 MG/ML INJ IVP PRN (02:57)
[2020-10-28] MEDS ORDERED: Ipratropium/Albuterol Neb 3 ML IH PRN (03:00)
[2020-10-28] MEDS: Ipratropium/Albuterol Neb 3 ML IH SCH ×6 (03:59→23:24)
[2020-10-28 04:42] LABS: Basophils % 0.2 %; Eosinophils % 0.1 %; Hematocrit 42.4 % (35.3-44.9); Hemoglobin 12.4 g/dL (11.5-15.4); Immature Granulocytes % 0.6 % (0-4); Lymphocytes # 0.3 K/mcL (0.6-4.6); Lymphocytes % 3.1 %; Mean Corpuscular HGB Conc 29.2 g/dL (31.6-35.5); Mean Corpuscular Hemoglobin 26.7 pg (28.0-33.3); Mean Corpuscular Volume 91.4 fL (83.0-100.0); Mean Platelet Volume 10.6 fL (9.4-12.4); Monocytes # 0.2 K/mcL (0.0-1.3); Monocytes % 2.4 %; Neutrophils # 8.2 K/mcL (1.6-8.9); Platelet Count 222 K/mcL (140-400); Red Blood Count 4.64 M/mcL (3.82-4.97); Red Cell Distribution Width 14.3 % (11.5-14.5); Segmented Neutrophils % 93.6 %; White Blood Count 8.7 K/mcL (4.3-11.1)
[2020-10-28 04:48] LABS: INR 1.7; Prothrombin Time 19.5 Seconds (9.4-12.1)
[2020-10-28 05:01] LABS: BUN/Creatinine Ratio 13 (6-26); Blood Urea Nitrogen 8 mg/dL (8-23); Calcium 9.1 mg/dL (8.6-10.3); Carbon Dioxide 36 mEq/L (23-29); Chloride 99 mEq/L (98-107); Chol/HDL Ratio 2.6 (0-4.9); Cholesterol 120 mg/dL (< 200); Glucose 147 mg/dL (70-105); HDL Cholesterol 47 mg/dL (40-59); LDL Cholesterol,Calculated 57 mg/dL (< 100); Magnesium 1.6 mg/dL (1.6-2.6); Osmolality,Calculated 297 (280-300); Potassium 3.6 mEq/L (3.5-5.1); Sodium 143 mEq/L (136-145); Triglycerides 81 mg/dL (< 150); eGFR For African Americans > 60 (> 60); eGFR For Non-African Americans > 60 (> 60)
[2020-10-28] MEDS: Budesonide/Formoterol 160/4.5 1 PUFF INH IH SCH ×2 (07:23→20:12)
[2020-10-28] MEDS ORDERED: (Roflumilast [Daliresp] 500 MCG PO SCH (09:00)
[2020-10-28] MEDS ORDERED: *HR* Rivaroxaban 10 MG TABLET PO SCH (09:00)
[2020-10-28] MEDS ORDERED: Tiotropium 10 INH DOSE IH SCH (09:00)
[2020-10-28] MEDS: MethylPREDNISolone 40 MG/ML VIAL IVP SCH ×3 (09:03→23:53)
[2020-10-28] MEDS: Aspirin Enteric Coated 81 MG Tablet PO SCH (09:03)
[2020-10-28] MEDS: lisinopriL 20 MG TABLET PO SCH (09:03)
[2020-10-28] MEDS: Metoprolol XL (24 HR) Succ 50 MG TAB.ER.24H PO SCH (09:13)
[2020-10-28] MEDS: Fluticasone Propionate Nasal 50 MCG/SPRAY BOTTLE NS SCH (09:23)
[2020-10-28] MEDS ORDERED: ALPRAZolam 0.5 MG TABLET PO PRN (14:14)
[2020-10-28] MEDS: rOPINIRole 1 MG TABLET PO SCH (16:40)
[2020-10-28] MEDS: *HR* Rivaroxaban 10 MG TABLET PO SCH (16:41)
[2020-10-29] MEDS: Ipratropium/Albuterol Neb 3 ML IH SCH ×5 (03:37→19:30)
[2020-10-29] MEDS ORDERED: Azithromycin 500 MG in 0.9 % Sodium Chloride 250 ML IVPB SCH (04:00)
[2020-10-29] MEDS: Budesonide/Formoterol 160/4.5 1 PUFF INH IH SCH ×2 (07:41→19:30)
[2020-10-29] MEDS: Aspirin Enteric Coated 81 MG Tablet PO SCH (08:22)
[2020-10-29] MEDS: lisinopriL 20 MG TABLET PO SCH (08:22)
[2020-10-29] MEDS: Azithromycin 250 MG TABLET PO SCH (08:22)
[2020-10-29] MEDS: MethylPREDNISolone 40 MG/ML VIAL IVP SCH ×3 (08:22→23:59)
[2020-10-29] MEDS: Metoprolol XL (24 HR) Succ 50 MG TAB.ER.24H PO SCH (08:23)
[2020-10-29] MEDS: FLUoxetine 20 MG CAPSULE PO SCH (08:23)
[2020-10-29] MEDS: Fluticasone Propionate Nasal 50 MCG/SPRAY BOTTLE NS SCH (08:25)
[2020-10-29] MEDS: *HR* Rivaroxaban 10 MG TABLET PO SCH (17:38)
[2020-10-29] MEDS: rOPINIRole 1 MG TABLET PO SCH (17:38)
[2020-10-30] MEDS: Ipratropium/Albuterol Neb 3 ML IH SCH ×7 (00:11→23:31)
[2020-10-30 02:53] LABS: BUN/Creatinine Ratio 30 (6-26); Blood Urea Nitrogen 19 mg/dL (8-23); Carbon Dioxide 39 mEq/L (23-29); Chloride 99 mEq/L (98-107); Glucose 175 mg/dL (70-105); Potassium 4.5 mEq/L (3.5-5.1); Sodium 141 mEq/L (136-145); eGFR For African Americans > 60 (> 60); eGFR For Non-African Americans > 60 (> 60)
[2020-10-30 02:54] LABS: Calcium 8.9 mg/dL (8.6-10.3); Magnesium 2.1 mg/dL (1.6-2.6); Osmolality,Calculated 299 (280-300)
[2020-10-30 04:37] LABS: Mean Corpuscular Hemoglobin 27.1 pg (28.0-33.3); Mean Corpuscular Volume 92.8 fL (83.0-100.0); Red Blood Count 4.42 M/mcL (3.82-4.97); White Blood Count 16.6 K/mcL (4.3-11.1)
[2020-10-30 04:38] LABS: Mean Corpuscular HGB Conc 29.3 g/dL (31.6-35.5); Platelet Count 244 K/mcL (140-400); Red Cell Distribution Width 14.5 % (11.5-14.5)
[2020-10-30] MEDS: Budesonide/Formoterol 160/4.5 1 PUFF INH IH SCH ×2 (07:27→19:30)
[2020-10-30] MEDS: MethylPREDNISolone 40 MG/ML VIAL IVP SCH ×3 (08:58→23:39)
[2020-10-30] MEDS: Azithromycin 250 MG TABLET PO SCH (08:59)
[2020-10-30] MEDS: FLUoxetine 20 MG CAPSULE PO SCH (08:59)
[2020-10-30] MEDS: lisinopriL 20 MG TABLET PO SCH (08:59)
[2020-10-30] MEDS: Metoprolol XL (24 HR) Succ 50 MG TAB.ER.24H PO SCH (08:59)
[2020-10-30] MEDS: Aspirin Enteric Coated 81 MG Tablet PO SCH (08:59)
[2020-10-30] MEDS: Fluticasone Propionate Nasal 50 MCG/SPRAY BOTTLE NS SCH (09:01)
[2020-10-30] MEDS: *HR* Rivaroxaban 10 MG TABLET PO SCH (17:59)
[2020-10-30] MEDS: rOPINIRole 1 MG TABLET PO SCH (17:59)
[2020-10-31] MEDS: Ipratropium/Albuterol Neb 3 ML IH SCH ×3 (03:29→11:09)
[2020-10-31 06:32] VITALS: PULSE 54
[2020-10-31] MEDS: Budesonide/Formoterol 160/4.5 1 PUFF INH IH SCH (07:21)
[2020-10-31] MEDS: FLUoxetine 20 MG CAPSULE PO SCH (08:00)
[2020-10-31] MEDS: Azithromycin 250 MG TABLET PO SCH (08:00)
[2020-10-31] MEDS: Metoprolol XL (24 HR) Succ 50 MG TAB.ER.24H PO SCH (08:00)
[2020-10-31] MEDS: lisinopriL 20 MG TABLET PO SCH (08:00)
[2020-10-31] MEDS: Aspirin Enteric Coated 81 MG Tablet PO SCH (08:00)
[2020-10-31] MEDS: Fluticasone Propionate Nasal 50 MCG/SPRAY BOTTLE NS SCH (08:04)
[2020-10-31] MEDS ORDERED: predniSONE 20 MG TABLET PO SCH (09:00)
[2020-10-31 10:34] VITALS: BP 165/92; TEMP 98.6; O2SAT 95
== END 2020-10-31 12:03 | disposition home or self-care (01) | DRG 189 ==
LOC: 2ANU 22:49 → EMEROOARM 22:49 → SUATTDRO 10-28 02:26 → 2ANU 10-28 02:48
PROVIDERS: ADMIT Internal Medicine; ATTEND Internal Medicine

== ENCOUNTER 2020-11-15 06:22 | Observation (INO) ==
[2020-11-15] MEDS ORDERED: Isovue-370 500 ML BOTTLE IVP ONE ×2 (06:44→14:40)
[2020-11-15] MEDS ORDERED: *HR* Metoprolol 5 MG/5 ML VIAL IVP ONE (06:44)
[2020-11-15] MEDS ORDERED: 0.9 % Sodium Chloride 500 ML IVC ONE (06:44)
[2020-11-15] MEDS ORDERED: Aspirin 81 MG TAB.CHEW PO ONE (06:44)
[2020-11-15] MEDS ORDERED: Ipratropium/Albuterol Neb 3 ML IH ONE (07:15)
[2020-11-15] MEDS ORDERED: *HR* FentaNYL (PF) 100 MCG/2 ML VIAL IVP ONE (07:16)
[2020-11-15 07:23] LABS: Basophils % 0.3 %; Eosinophils # 0.2 K/mcL (0.0-0.6); Eosinophils % 2.5 %; Hematocrit 40.9 % (35.3-44.9); Hemoglobin 12.4 g/dL (11.5-15.4); Immature Granulocytes % 0.4 % (0-4); Lymphocytes # 1.2 K/mcL (0.6-4.6); Mean Corpuscular HGB Conc 30.3 g/dL (31.6-35.5); Mean Corpuscular Hemoglobin 28.1 pg (28.0-33.3); Mean Corpuscular Volume 92.5 fL (83.0-100.0); Mean Platelet Volume 10.5 fL (9.4-12.4); Monocytes # 0.7 K/mcL (0.0-1.3); Monocytes % 8.9 %; Neutrophils # 5.4 K/mcL (1.6-8.9); Platelet Count 190 K/mcL (140-400); Red Blood Count 4.42 M/mcL (3.82-4.97); Red Cell Distribution Width 14.6 % (11.5-14.5); Segmented Neutrophils % 71.9 %; White Blood Count 7.5 K/mcL (4.3-11.1)
[2020-11-15 07:30] LABS: INR 1.3; Prothrombin Time 14.8 Seconds (9.4-12.1)
[2020-11-15 07:32] LABS: Activated Partial Thrombo Time 35.1 Seconds (26.0-36.0)
[2020-11-15 07:53] LABS: BUN/Creatinine Ratio 10 (6-26); Blood Urea Nitrogen 6 mg/dL (8-23); Calcium 9.2 mg/dL (8.6-10.3); Carbon Dioxide 40 mEq/L (23-29); Chloride 100 mEq/L (98-107); Glucose 121 mg/dL (70-105); Lipase 36 Units/L (11-82); Osmolality,Calculated 295 (280-300); Potassium 4.2 mEq/L (3.5-5.1); Sodium 143 mEq/L (136-145); Troponin I < 0.03 ng/mL (< 0.04); eGFR For African Americans > 60 (> 60); eGFR For Non-African Americans > 60 (> 60)
[2020-11-15] MEDS ORDERED: Ipratropium/Albuterol Neb 3 ML IH PRN (10:51)
[2020-11-15] MEDS ORDERED: ALPRAZolam 0.5 MG TABLET PO PRN (10:51)
[2020-11-15] MEDS ORDERED: Naloxone 0.4 MG/ML INJ IVP PRN (10:59)
[2020-11-15] MEDS ORDERED: Ondansetron 4 MG/2 ML VIAL IVP PRN (10:59)
[2020-11-15] MEDS ORDERED: Acetaminophen 325 MG TABLET PO PRN (10:59)
[2020-11-15 11:39] LABS: Thyroid Stimulating Hormone 3.022 mcIU/mL (0.340-5.600)
[2020-11-15] MEDS ORDERED: *HR* Metoprolol 5 MG/5 ML VIAL IVP PRN (14:40)
[2020-11-15] MEDS ORDERED: Nitroglycerin 0.4 MG TAB.SUBL SL PRN (14:40)
[2020-11-15] MEDS ORDERED: 0.9 % Sodium Chloride 1,000 ML IVC SCH (14:45)
[2020-11-15] MEDS ORDERED: Nitroglycerin 0.4 MG TAB.SUBL SL ONE (15:17)
[2020-11-15] MEDS: rOPINIRole 1 MG TABLET PO SCH (18:05)
[2020-11-15] MEDS: *HR* HYDROcodone/Acet 7.5/325 mg TABLET PO PRN (18:06)
[2020-11-15] MEDS: Budesonide/Formoterol 160/4.5 1 PUFF INH IH SCH (20:09)
[2020-11-16 05:04] LABS: Hematocrit 38.8 % (35.3-44.9); Hemoglobin 11.4 g/dL (11.5-15.4); Mean Corpuscular HGB Conc 29.4 g/dL (31.6-35.5); Mean Corpuscular Hemoglobin 27.3 pg (28.0-33.3); Mean Platelet Volume 10.8 fL (9.4-12.4); Platelet Count 156 K/mcL (140-400); Red Blood Count 4.17 M/mcL (3.82-4.97); Red Cell Distribution Width 14.6 % (11.5-14.5)
[2020-11-16 05:21] LABS: BUN/Creatinine Ratio 14 (6-26); Blood Urea Nitrogen 7 mg/dL (8-23); Calcium 9.2 mg/dL (8.6-10.3); Carbon Dioxide 40 mEq/L (23-29); Chloride 102 mEq/L (98-107); Glucose 113 mg/dL (70-105); Magnesium 1.9 mg/dL (1.6-2.6); Osmolality,Calculated 297 (280-300); Potassium 3.9 mEq/L (3.5-5.1); Sodium 144 mEq/L (136-145); eGFR For African Americans > 60 (> 60); eGFR For Non-African Americans > 60 (> 60)
[2020-11-16] MEDS: Tiotropium 10 INH DOSE IH SCH (07:40)
[2020-11-16] MEDS: Budesonide/Formoterol 160/4.5 1 PUFF INH IH SCH ×2 (07:40→21:00)
[2020-11-16] MEDS: *HR* Rivaroxaban 10 MG TABLET PO SCH (08:36)
[2020-11-16] MEDS: Aspirin Enteric Coated 81 MG Tablet PO SCH (08:36)
[2020-11-16] MEDS: FLUoxetine 20 MG CAPSULE PO SCH (08:36)
[2020-11-16] MEDS: Torsemide 20 MG TABLET PO SCH (08:37)
[2020-11-16] MEDS: *HR* HYDROcodone/Acet 7.5/325 mg TABLET PO PRN ×2 (08:41→21:27)
[2020-11-16] MEDS ORDERED: Metoprolol XL (24 HR) Succ 50 MG TAB.ER.24H PO SCH ×2 (09:00)
[2020-11-16] MEDS ORDERED: lisinopriL 20 MG TABLET PO SCH (09:00)
[2020-11-16] MEDS ORDERED: Nystatin SUSP 5 ML UD.LIQ PO PRN (12:37)
[2020-11-16] MEDS: rOPINIRole 1 MG TABLET PO SCH (16:23)
[2020-11-16] MEDS: Melatonin 3 MG TABLET PO PRN (21:27)
[2020-11-17] MEDS: Tiotropium 10 INH DOSE IH SCH (07:48)
[2020-11-17] MEDS: Budesonide/Formoterol 160/4.5 1 PUFF INH IH SCH ×2 (07:49→20:02)
[2020-11-17 09:02] LABS: Hematocrit 41.8 % (35.3-44.9); Hemoglobin 12.5 g/dL (11.5-15.4); Mean Corpuscular HGB Conc 29.9 g/dL (31.6-35.5); Mean Corpuscular Hemoglobin 27.8 pg (28.0-33.3); Mean Corpuscular Volume 92.9 fL (83.0-100.0); Platelet Count 188 K/mcL (140-400); Red Cell Distribution Width 14.4 % (11.5-14.5); White Blood Count 5.8 K/mcL (4.3-11.1)
[2020-11-17 09:33] LABS: BUN/Creatinine Ratio 15 (6-26); Blood Urea Nitrogen 9 mg/dL (8-23); Calcium 9.6 mg/dL (8.6-10.3); Carbon Dioxide 40 mEq/L (23-29); Chloride 100 mEq/L (98-107); Glucose 117 mg/dL (70-105); Osmolality,Calculated 298 (280-300); Potassium 4.1 mEq/L (3.5-5.1); Sodium 144 mEq/L (136-145); eGFR For African Americans > 60 (> 60); eGFR For Non-African Americans > 60 (> 60)
[2020-11-17] MEDS: Torsemide 20 MG TABLET PO SCH (09:34)
[2020-11-17] MEDS: FLUoxetine 20 MG CAPSULE PO SCH (09:34)
[2020-11-17] MEDS: *HR* Rivaroxaban 10 MG TABLET PO SCH (09:34)
[2020-11-17] MEDS: Aspirin Enteric Coated 81 MG Tablet PO SCH (09:34)
[2020-11-17] MEDS: *HR* HYDROcodone/Acet 7.5/325 mg TABLET PO PRN ×2 (09:38→20:36)
[2020-11-17] MEDS: lisinopriL 20 MG TABLET PO SCH (10:28)
[2020-11-17] MEDS: rOPINIRole 1 MG TABLET PO SCH (16:34)
[2020-11-17] MEDS: Melatonin 3 MG TABLET PO PRN (20:36)
[2020-11-18 04:12] LABS: Hematocrit 38.6 % (35.3-44.9); Hemoglobin 12.2 g/dL (11.5-15.4); Mean Corpuscular HGB Conc 31.6 g/dL (31.6-35.5); Mean Corpuscular Hemoglobin 28.2 pg (28.0-33.3); Mean Corpuscular Volume 89.1 fL (83.0-100.0); Mean Platelet Volume 10.8 fL (9.4-12.4); Platelet Count 178 K/mcL (140-400); Red Blood Count 4.33 M/mcL (3.82-4.97); Red Cell Distribution Width 14.4 % (11.5-14.5); White Blood Count 7.4 K/mcL (4.3-11.1)
[2020-11-18 04:31] LABS: BUN/Creatinine Ratio 15 (6-26); Blood Urea Nitrogen 9 mg/dL (8-23); Calcium 9.4 mg/dL (8.6-10.3); Carbon Dioxide 40 mEq/L (23-29); Chloride 98 mEq/L (98-107); Glucose 127 mg/dL (70-105); Osmolality,Calculated 296 (280-300); Potassium 3.5 mEq/L (3.5-5.1); Sodium 143 mEq/L (136-145); eGFR For African Americans > 60 (> 60); eGFR For Non-African Americans > 60 (> 60)
[2020-11-18] MEDS: FLUoxetine 20 MG CAPSULE PO SCH (07:09)
[2020-11-18] MEDS: Aspirin Enteric Coated 81 MG Tablet PO SCH (07:09)
[2020-11-18] MEDS: Torsemide 20 MG TABLET PO SCH (07:09)
[2020-11-18] MEDS: *HR* Rivaroxaban 10 MG TABLET PO SCH (07:10)
[2020-11-18] MEDS: lisinopriL 20 MG TABLET PO SCH (07:10)
[2020-11-18] MEDS: *HR* HYDROcodone/Acet 7.5/325 mg TABLET PO PRN (07:14)
[2020-11-18] MEDS: Budesonide/Formoterol 160/4.5 1 PUFF INH IH SCH (07:50)
[2020-11-18] MEDS: Tiotropium 10 INH DOSE IH SCH (07:50)
[2020-11-19 12:08] VITALS: BP 127/79; PULSE 63; TEMP 97.8; O2SAT 95
== END 2020-11-18 15:40 | disposition home or self-care (01) ==
LOC: SUATTDRO → 3BNU 06:22 → EMEROOARM 06:22 → SUATTDRO 13:53 → 3BNU 14:34
PROVIDERS: ADMIT Internal Medicine; ATTEND Nurse Practitioner

== ENCOUNTER 2020-12-05 12:46 | Inpatient (IN) ==
[2020-12-05] MEDS ORDERED: cefTRIAXone 1,000 MG in Water for inj. (sterile) 10 ML IVP ONE (13:23)
[2020-12-05] MEDS ORDERED: Azithromycin 500 MG in 0.9 % Sodium Chloride 250 ML IVPB ONE (13:23)
[2020-12-05] MEDS ORDERED: methylPREDNISolone 125 MG/2 ML VIAL IVP ONE (13:23)
[2020-12-05] MEDS ORDERED: Furosemide 40 MG in 0.9 % Sodium Chloride 50 ML IVPB ONE (13:24)
[2020-12-05] MEDS ORDERED: Ipratropium/Albuterol Neb 3 ML IH ONE (13:24)
[2020-12-05] MEDS ORDERED: Furosemide 40 MG/4 ML VIAL IVP ONE (13:55)
[2020-12-05 14:25] LABS: Basophils % 0.5 %; Eosinophils % 0.5 %; Hematocrit 37.4 % (35.3-44.9); Hemoglobin 11.3 g/dL (11.5-15.4); Immature Granulocytes % 0.3 % (0-4); Lymphocytes # 0.9 K/mcL (0.6-4.6); Lymphocytes % 12.9 %; Mean Corpuscular HGB Conc 30.2 g/dL (31.6-35.5); Mean Corpuscular Hemoglobin 27.4 pg (28.0-33.3); Mean Corpuscular Volume 90.8 fL (83.0-100.0); Mean Platelet Volume 10.5 fL (9.4-12.4); Monocytes # 1.1 K/mcL (0.0-1.3); Monocytes % 17.1 %; Neutrophils # 4.6 K/mcL (1.6-8.9); Platelet Count 160 K/mcL (140-400); Red Blood Count 4.12 M/mcL (3.82-4.97); Red Cell Distribution Width 15.1 % (11.5-14.5); Segmented Neutrophils % 68.7 %; White Blood Count 6.7 K/mcL (4.3-11.1)
[2020-12-05] MEDS ORDERED: Ondansetron 4 MG/2 ML VIAL IVP ONE (14:28)
[2020-12-05 14:38] LABS: Alanine Aminotransferase 9 Units/L (7-52); Albumin 3.6 g/dL (3.5-5.7); Albumin/Globulin Ratio 1.2 (1.1-2.2); Alkaline Phosphatase 70 Units/L (34-104); Aspartate Amino Transferase 14 Units/L (13-39); BUN/Creatinine Ratio 12 (6-26); Bilirubin,Indirect 0.3 mg/dL (0.0-1.0); Bilirubin,Total 0.3 mg/dL (0.3-1.0); Blood Urea Nitrogen 8 mg/dL (8-23); Calcium 8.8 mg/dL (8.6-10.3); Carbon Dioxide 32 mEq/L (23-29); Chloride 100 mEq/L (98-107); Globulin 2.9 g/dL (2.4-3.5); Glucose 106 mg/dL (70-105); Osmolality,Calculated 289 (280-300); Potassium 3.8 mEq/L (3.5-5.1); Sodium 140 mEq/L (136-145); Total Protein 6.5 g/dL (6.4-8.9); Troponin I < 0.03 ng/mL (< 0.04); eGFR For African Americans > 60 (> 60); eGFR For Non-African Americans > 60 (> 60)
[2020-12-05 15:21] LABS: Bacteria,Urine Few per hpf (None-Few); Bilirubin,Urine Negative (Negative); Blood,Urine Trace (Negative); Clarity,Urine Clear (Clear); Color,Urine Light-Yellow (Yellow); Glucose,Urine (UA) Normal (Normal); Ketones,Urine Negative (Negative); Leukocyte Esterase,Urine Negative (Negative); Mucus,Urine Few per lpf (None-Few); Nitrite,Urine Negative (Negative); PH,Urine 7.5 pH Units (5.0-8.0); Protein,Urine Trace mg/dL (Neg-Trace); Specific Gravity,Urine 1.019 (1.010-1.025); Squamous Epithelial Cell,Urine Few per hpf (None-Few); WBC,Urine 0-3 per hpf (0-3)
[2020-12-05] MEDS ORDERED: Naloxone 0.4 MG/ML INJ IVP PRN (17:04)
[2020-12-05] MEDS ORDERED: Ondansetron 4 MG/2 ML VIAL IVP PRN (17:04)
[2020-12-05] MEDS ORDERED: Fluticasone Propionate Nasal 50 MCG/SPRAY BOTTLE NS PRN (17:08)
[2020-12-05 18:22] LABS: Adenovirus Not Detected (Not Detect); Coronavirus 229E Not Detected (Not Detect); Coronavirus HKU1 Not Detected (Not Detect); Coronavirus NL63 Not Detected (Not Detect); Coronavirus OC43 Not Detected (Not Detect)
[2020-12-05 18:23] LABS: Bordetella Pertussis Not Detected (Not Detect); Chlamydophila pneumoniae Not Detected (Not Detect); Human Metapneumovirus Not Detected (Not Detect); Human Rhinovirus/Enterovirus Not Detected (Not Detect); Influenza A Subtype 2009 H1 Not Detected (Not Detect); Influenza B Not Detected (Not Detect); Mycoplasma pneumoniae Not Detected (Not Detect); Parainfluenza Virus 1 Not Detected (Not Detect); Parainfluenza Virus 2 Not Detected (Not Detect); Parainfluenza Virus 3 Not Detected (Not Detect); Parainfluenza Virus 4 Not Detected (Not Detect); Respiratory Syncytial Virus Not Detected (Not Detect)
[2020-12-05 18:24] LABS: SARS-CoV-2 DETECTED (Not Detect)
[2020-12-05] MEDS ORDERED: Ipratropium/Albuterol Neb 3 ML IH SCH (20:00)
[2020-12-05] MEDS: Budesonide/Formoterol 160/4.5 1 PUFF INH IH SCH (21:25)
[2020-12-05] MEDS: Furosemide 40 MG/4 ML VIAL IVP SCH (21:37)
[2020-12-05] MEDS: rOPINIRole 1 MG TABLET PO SCH (21:39)
[2020-12-05] MEDS: *HR* HYDROcodone/Acet 5/325 mg TABLET PO PRN (23:24)
[2020-12-06] MEDS: Ipratropium 1 PUFF INHALER IH SCH ×6 (00:19→20:46)
[2020-12-06 02:52] LABS: Basophils % 0.2 %; Hematocrit 37.5 % (35.3-44.9); Immature Granulocytes % 0.4 % (0-4); Monocytes % 9.3 %; Red Cell Distribution Width 14.8 % (11.5-14.5)
[2020-12-06 02:54] LABS: Hemoglobin 11.6 g/dL (11.5-15.4); Immature Platelets 3.6 % (1.1-6.1); Lymphocytes # 0.5 K/mcL (0.6-4.6); Lymphocytes % 8.6 %; Mean Corpuscular HGB Conc 30.9 g/dL (31.6-35.5); Mean Corpuscular Hemoglobin 27.9 pg (28.0-33.3); Mean Corpuscular Volume 90.1 fL (83.0-100.0); Mean Platelet Volume 10.7 fL (9.4-12.4); Monocytes # 0.5 K/mcL (0.0-1.3); Neutrophils # 4.4 K/mcL (1.6-8.9); Platelet Count 150 K/mcL (140-400); Red Blood Count 4.16 M/mcL (3.82-4.97); Segmented Neutrophils % 81.5 %; White Blood Count 5.4 K/mcL (4.3-11.1)
[2020-12-06 03:14] LABS: BUN/Creatinine Ratio 16 (6-26); Blood Urea Nitrogen 9 mg/dL (8-23); Calcium 8.4 mg/dL (8.6-10.3); Carbon Dioxide 32 mEq/L (23-29); Chloride 100 mEq/L (98-107); Glucose 139 mg/dL (70-105); Magnesium 1.9 mg/dL (1.6-2.6); Osmolality,Calculated 291 (280-300); Potassium 4.6 mEq/L (3.5-5.1); Sodium 140 mEq/L (136-145); eGFR For African Americans > 60 (> 60); eGFR For Non-African Americans > 60 (> 60)
[2020-12-06] MEDS ORDERED: MethylPREDNISolone 40 MG/ML VIAL IVP SCH (06:00)
[2020-12-06] MEDS ORDERED: Remdesivir 200 MG in 0.9 % Sodium Chloride 100 ML IVPB ONE (07:55)
[2020-12-06] MEDS ORDERED: Nystatin SUSP 5 ML UD.LIQ PO PRN (08:01)
[2020-12-06] MEDS ORDERED: ALPRAZolam 0.5 MG TABLET PO PRN (08:01)
[2020-12-06] MEDS: Budesonide/Formoterol 160/4.5 1 PUFF INH IH SCH ×2 (08:02→20:46)
[2020-12-06 08:35] LABS: C-Reactive Protein 27 mg/L (Less than 10)
[2020-12-06] MEDS: FLUoxetine 20 MG CAPSULE PO SCH (09:28)
[2020-12-06] MEDS: *HR* Rivaroxaban 10 MG TABLET PO SCH (09:28)
[2020-12-06] MEDS: lisinopriL 20 MG TABLET PO SCH (09:28)
[2020-12-06] MEDS: Aspirin Enteric Coated 81 MG Tablet PO SCH (09:31)
[2020-12-06] MEDS: Furosemide 40 MG/4 ML VIAL IVP SCH ×2 (09:32→16:45)
[2020-12-06] MEDS: *HR* HYDROcodone/Acet 5/325 mg TABLET PO PRN (15:02)
[2020-12-06] MEDS: rOPINIRole 1 MG TABLET PO SCH (16:57)
[2020-12-07] MEDS: Ipratropium 1 PUFF INHALER IH SCH ×6 (01:19→20:22)
[2020-12-07] MEDS: Budesonide/Formoterol 160/4.5 1 PUFF INH IH SCH ×2 (07:50→20:22)
[2020-12-07 08:01] LABS: Albumin 3.7 g/dL (3.5-5.7); Albumin/Globulin Ratio 1.5 (1.1-2.2); Bilirubin,Direct 0.1 mg/dL (0.0-0.2); Bilirubin,Indirect 0.2 mg/dL (0.0-1.0); Bilirubin,Total 0.3 mg/dL (0.3-1.0); Globulin 2.5 g/dL (2.4-3.5); Total Protein 6.2 g/dL (6.4-8.9)
[2020-12-07 08:19] LABS: Blood Urea Nitrogen 17 mg/dL (8-23); Carbon Dioxide 41 mEq/L (23-29); Chloride 98 mEq/L (98-107); Glucose 85 mg/dL (70-105); Lactate Dehydrogenase 189 Units/L (140-271); Magnesium 1.9 mg/dL (1.6-2.6); Osmolality,Calculated 301 (280-300); Phosphorous 2.3 mg/dL (2.7-4.5); Potassium 3.6 mEq/L (3.5-5.1); Sodium 145 mEq/L (136-145)
[2020-12-07 08:29] LABS: Fibrinogen 627 mg/dL (169-393)
[2020-12-07 08:31] LABS: D-Dimer 452 ng/mLFEU (0-500)
[2020-12-07 08:53] LABS: BUN/Creatinine Ratio 25 (6-26); Ferritin 31 ng/mL (10-120); eGFR For African Americans > 60 (> 60); eGFR For Non-African Americans > 60 (> 60)
[2020-12-07] MEDS: *HR* HYDROcodone/Acet 5/325 mg TABLET PO PRN ×2 (09:35→23:57)
[2020-12-07] MEDS: lisinopriL 20 MG TABLET PO SCH (09:37)
[2020-12-07] MEDS: FLUoxetine 20 MG CAPSULE PO SCH (09:37)
[2020-12-07] MEDS: Aspirin Enteric Coated 81 MG Tablet PO SCH (09:37)
[2020-12-07] MEDS: *HR* Rivaroxaban 10 MG TABLET PO SCH (09:37)
[2020-12-07] MEDS: Furosemide 40 MG/4 ML VIAL IVP SCH ×2 (09:38→16:56)
[2020-12-07] MEDS: Remdesivir 100 MG in 0.9 % Sodium Chloride 100 ML IVPB SCH (09:39)
[2020-12-07 15:36] LABS: ABG Base Excess 12 mEq/L (-2 to 3); ABG HCO3 39 mEq/L (21-27); ABG Oxygen Saturation 95 % (95-98); ABG PCO2 67 mmHg (35-45); ABG PH 7.38 pH Units (7.32-7.45); ABG PO2 81 mmHg (85-104); ABG TCO2 41 mEq/L (20-26)
[2020-12-07] MEDS: rOPINIRole 1 MG TABLET PO SCH (18:06)
[2020-12-08] MEDS: Ipratropium 1 PUFF INHALER IH SCH ×5 (00:02→16:12)
[2020-12-08 00:45] LABS: Albumin 3.4 g/dL (3.5-5.7); Albumin/Globulin Ratio 1.2 (1.1-2.2); Bilirubin,Indirect 0.3 mg/dL (0.0-1.0); Bilirubin,Total 0.3 mg/dL (0.3-1.0); Globulin 2.8 g/dL (2.4-3.5); Total Protein 6.2 g/dL (6.4-8.9)
[2020-12-08 00:47] LABS: BUN/Creatinine Ratio 27 (6-26); Blood Urea Nitrogen 17 mg/dL (8-23); Calcium 8.4 mg/dL (8.6-10.3); Carbon Dioxide 41 mEq/L (23-29); Chloride 97 mEq/L (98-107); Glucose 99 mg/dL (70-105); Osmolality,Calculated 296 (280-300); Phosphorous 3.3 mg/dL (2.7-4.5); Potassium 3.8 mEq/L (3.5-5.1); Sodium 142 mEq/L (136-145); eGFR For African Americans > 60 (> 60); eGFR For Non-African Americans > 60 (> 60)
[2020-12-08] MEDS: Aspirin Enteric Coated 81 MG Tablet PO SCH (07:41)
[2020-12-08] MEDS: lisinopriL 20 MG TABLET PO SCH (07:41)
[2020-12-08] MEDS: FLUoxetine 20 MG CAPSULE PO SCH (07:41)
[2020-12-08] MEDS: *HR* Rivaroxaban 10 MG TABLET PO SCH (07:42)
[2020-12-08] MEDS: Furosemide 40 MG/4 ML VIAL IVP SCH (07:43)
[2020-12-08] MEDS: Budesonide/Formoterol 160/4.5 1 PUFF INH IH SCH (08:17)
[2020-12-08 10:39] VITALS: BP 126/64; PULSE 63; TEMP 98.3
[2020-12-08] MEDS: Remdesivir 100 MG in 0.9 % Sodium Chloride 100 ML IVPB SCH (11:40)
[2020-12-08 14:37] VITALS: O2SAT 96
[2020-12-09] MEDS ORDERED: Cholecalciferol (D-3) 1,000 UNIT (25MCG) TABLET PO SCH (09:00)
== END 2020-12-08 18:00 | disposition home health service (06) | DRG 177 ==
LOC: 3NENU 12:46 → EMEROOARM 12:46 → SUATTDRO 19:06 → 3NENU 19:57
PROVIDERS: ADMIT Internal Medicine; ATTEND Internal Medicine

== ENCOUNTER 2021-09-10 17:25 | Inpatient (IN) ==
[2021-09-10] MEDS ORDERED: Ipratropium/Albuterol Neb 3 ML IH ONE (17:37)
[2021-09-10] MEDS ORDERED: Albuterol 2.5 MG/3 ML NEBULIZER IH ONE (17:37)
[2021-09-10] MEDS ORDERED: methylPREDNISolone 125 MG/2 ML VIAL IVP ONE (17:37)
[2021-09-10 18:24] LABS: Basophils % 0.5 %; Eosinophils # 0.3 K/mcL (0.0-0.6); Eosinophils % 3.4 %; Hematocrit 38.1 % (35.3-44.9); Hemoglobin 11.2 g/dL (11.5-15.4); Immature Granulocytes % 0.4 % (0-4); Lymphocytes # 1.1 K/mcL (0.6-4.6); Lymphocytes % 13.7 %; Mean Corpuscular HGB Conc 29.4 g/dL (31.6-35.5); Mean Corpuscular Hemoglobin 28.6 pg (28.0-33.3); Mean Corpuscular Volume 97.4 fL (83.0-100.0); Mean Platelet Volume 10.1 fL (9.4-12.4); Neutrophils # 5.8 K/mcL (1.6-8.9); Platelet Count 180 K/mcL (140-400); Red Blood Count 3.91 M/mcL (3.82-4.97); Red Cell Distribution Width 14.8 % (11.5-14.5); White Blood Count 8.3 K/mcL (4.3-11.1)
[2021-09-10 18:31] LABS: Troponin I < 0.03 ng/mL (< 0.04)
[2021-09-10 18:33] LABS: Alanine Aminotransferase 7 Units/L (7-52); Albumin 3.6 g/dL (3.5-5.7); Albumin/Globulin Ratio 1.2 (1.1-2.2); Alkaline Phosphatase 66 Units/L (34-104); Aspartate Amino Transferase 9 Units/L (13-39); BUN/Creatinine Ratio 14 (6-26); Bilirubin,Total 0.4 mg/dL (0.3-1.0); Blood Urea Nitrogen 9 mg/dL (8-23); Calcium 9.3 mg/dL (8.6-10.3); Carbon Dioxide 44 mEq/L (23-29); Chloride 96 mEq/L (98-107); Globulin 3.1 g/dL (2.4-3.5); Glucose 145 mg/dL (70-105); Osmolality,Calculated 299 (280-300); Potassium 4.4 mEq/L (3.5-5.1); Sodium 144 mEq/L (136-145); Total Protein 6.7 g/dL (6.4-8.9); eGFR For African Americans > 60 (> 60); eGFR For Non-African Americans > 60 (> 60)
[2021-09-10 19:20] LABS: Adenovirus Not Detected (Not Detect); Coronavirus 229E Not Detected (Not Detect); Coronavirus HKU1 Not Detected (Not Detect); Coronavirus NL63 Not Detected (Not Detect); Coronavirus OC43 Not Detected (Not Detect)
[2021-09-10 19:22] LABS: Bordetella Pertussis Not Detected (Not Detect); Chlamydophila pneumoniae Not Detected (Not Detect); Human Metapneumovirus Not Detected (Not Detect); Human Rhinovirus/Enterovirus Not Detected (Not Detect); Influenza A Subtype 2009 H1 Not Detected (Not Detect); Influenza B Not Detected (Not Detect); Mycoplasma pneumoniae Not Detected (Not Detect); Parainfluenza Virus 1 Not Detected (Not Detect); Parainfluenza Virus 2 Not Detected (Not Detect); Parainfluenza Virus 3 Not Detected (Not Detect); Parainfluenza Virus 4 Not Detected (Not Detect); Respiratory Syncytial Virus Not Detected (Not Detect); SARS-CoV-2 DETECTED (Not Detect)
[2021-09-10] MEDS ORDERED: Furosemide 20 MG/2 ML VIAL IVP ONE (19:22)
[2021-09-10 19:44] LABS: VBG HCO3 45 mEq/L (21-27); VBG PCO2 94 mmHg (41-51); VBG PH 7.29 pH Units (7.32-7.42); VBG PO2 65 mmHg (25-50)
[2021-09-10] MEDS ORDERED: Naloxone 0.4 MG/ML INJ IVP PRN (20:36)
[2021-09-10] MEDS ORDERED: *HR* OxyCODONE Immed Rel 5 MG TABLET PO PRN (20:36)
[2021-09-10] MEDS ORDERED: Acetaminophen 325 MG TABLET PO PRN (20:36)
[2021-09-10] MEDS ORDERED: Melatonin 3 MG TABLET PO PRN (20:36)
[2021-09-10] MEDS ORDERED: Ondansetron 4 MG/2 ML VIAL IVP PRN (20:36)
[2021-09-10] MEDS ORDERED: Furosemide 20 MG TABLET PO SCH (20:45)
[2021-09-10] MEDS: Budesonide/Formoterol 160/4.5 1 PUFF INH IH SCH (22:59)
[2021-09-11 05:03] LABS: Basophils % 0.3 %; Hematocrit 40.1 % (35.3-44.9); Hemoglobin 11.7 g/dL (11.5-15.4); Immature Granulocytes % 0.7 % (0-4); Lymphocytes # 0.6 K/mcL (0.6-4.6); Lymphocytes % 8.8 %; Mean Corpuscular HGB Conc 29.2 g/dL (31.6-35.5); Mean Corpuscular Hemoglobin 27.7 pg (28.0-33.3); Mean Platelet Volume 10.2 fL (9.4-12.4); Monocytes # 0.3 K/mcL (0.0-1.3); Monocytes % 4.5 %; Neutrophils # 6.1 K/mcL (1.6-8.9); Platelet Count 214 K/mcL (140-400); Red Blood Count 4.22 M/mcL (3.82-4.97); Red Cell Distribution Width 14.5 % (11.5-14.5); Segmented Neutrophils % 85.7 %; White Blood Count 7.1 K/mcL (4.3-11.1)
[2021-09-11 05:05] LABS: VBG HCO3 42 mEq/L (21-27); VBG PCO2 77 mmHg (41-51); VBG PH 7.34 pH Units (7.32-7.42); VBG PO2 51 mmHg (25-50)
[2021-09-11 05:16] LABS: Prothrombin Time 11.1 Seconds (9.4-12.1)
[2021-09-11 05:36] LABS: Thyroid Stimulating Hormone 11.446 mcIU/mL (0.340-5.600)
[2021-09-11 05:52] LABS: Alanine Aminotransferase 8 Units/L (7-52); Albumin/Globulin Ratio 1.3 (1.1-2.2); Alkaline Phosphatase 77 Units/L (34-104); Aspartate Amino Transferase 9 Units/L (13-39); BUN/Creatinine Ratio 14 (6-26); Bilirubin,Total 0.4 mg/dL (0.3-1.0); Blood Urea Nitrogen 10 mg/dL (8-23); Calcium 9.4 mg/dL (8.6-10.3); Carbon Dioxide 42 mEq/L (23-29); Chloride 93 mEq/L (98-107); Ferritin 48 ng/mL (10-120); Globulin 3.1 g/dL (2.4-3.5); Glucose 159 mg/dL (70-105); Lactate Dehydrogenase 178 Units/L (140-271); Magnesium 2.1 mg/dL (1.6-2.6); Osmolality,Calculated 296 (280-300); Phosphorous 3.1 mg/dL (2.7-4.5); Potassium 4.1 mEq/L (3.5-5.1); Sodium 142 mEq/L (136-145); Total Protein 7.1 g/dL (6.4-8.9); eGFR For African Americans > 60 (> 60); eGFR For Non-African Americans > 60 (> 60)
[2021-09-11] MEDS ORDERED: Tiotropium 10 INH DOSE IH ONE (07:19)
[2021-09-11] MEDS: Tiotropium 10 INH DOSE IH SCH (07:26)
[2021-09-11] MEDS: Budesonide/Formoterol 160/4.5 1 PUFF INH IH SCH ×2 (07:26→21:51)
[2021-09-11 08:09] LABS: C-Reactive Protein 49 mg/L (Less than 10)
[2021-09-11] MEDS ORDERED: Aspirin Enteric Coated 81 MG Tablet PO SCH (09:00)
[2021-09-11] MEDS ORDERED: Torsemide 20 MG TABLET PO SCH (09:00)
[2021-09-11] MEDS: *HR* Rivaroxaban 10 MG TABLET PO SCH (09:19)
[2021-09-11] MEDS: Dexamethasone Sodium Phos/PF 10 MG/ML VIAL IVP SCH (09:19)
[2021-09-11] MEDS: Nystatin SUSP 5 ML UD.LIQ PO SCH ×3 (09:19→21:15)
[2021-09-11] MEDS: lisinopriL 20 MG TABLET PO SCH (09:20)
[2021-09-11] MEDS: Aspirin Enteric Coated 81 MG Tablet PO SCH (09:20)
[2021-09-11] MEDS: Metoprolol XL (24 HR) Succ 25 MG TAB.ER.24H PO SCH (09:20)
[2021-09-11] MEDS: FLUoxetine 20 MG CAPSULE PO SCH (09:22)
[2021-09-11] MEDS: (Roflumilast [Daliresp] 500 MCG Tablet) PO SCH (09:23)
[2021-09-11] MEDS: rOPINIRole 1 MG TABLET PO SCH (16:04)
[2021-09-11] MEDS: Furosemide 40 MG/4 ML VIAL IVP SCH (21:15)
[2021-09-12 05:09] LABS: Basophils % 0.5 %; Eosinophils % 0.4 %; Hematocrit 37.6 % (35.3-44.9); Hemoglobin 11.1 g/dL (11.5-15.4); Immature Granulocytes % 0.6 % (0-4); Lymphocytes # 1.7 K/mcL (0.6-4.6); Lymphocytes % 19.6 %; Mean Corpuscular HGB Conc 29.5 g/dL (31.6-35.5); Mean Corpuscular Hemoglobin 27.9 pg (28.0-33.3); Mean Corpuscular Volume 94.5 fL (83.0-100.0); Mean Platelet Volume 10.3 fL (9.4-12.4); Monocytes # 0.9 K/mcL (0.0-1.3); Monocytes % 10.4 %; Neutrophils # 5.9 K/mcL (1.6-8.9); Platelet Count 208 K/mcL (140-400); Red Blood Count 3.98 M/mcL (3.82-4.97); Red Cell Distribution Width 14.4 % (11.5-14.5); Segmented Neutrophils % 68.5 %; White Blood Count 8.6 K/mcL (4.3-11.1)
[2021-09-12 06:24] LABS: BUN/Creatinine Ratio 21 (6-26); Blood Urea Nitrogen 16 mg/dL (8-23); Calcium 9.3 mg/dL (8.6-10.3); Carbon Dioxide > 45 mEq/L (23-29); Chloride 91 mEq/L (98-107); Glucose 130 mg/dL (70-105); Osmolality,Calculated 301 (280-300); Potassium 3.8 mEq/L (3.5-5.1); Sodium 144 mEq/L (136-145); eGFR For African Americans > 60 (> 60); eGFR For Non-African Americans > 60 (> 60)
[2021-09-12] MEDS: Tiotropium 10 INH DOSE IH SCH (08:04)
[2021-09-12] MEDS: Budesonide/Formoterol 160/4.5 1 PUFF INH IH SCH ×2 (08:06→20:08)
[2021-09-12] MEDS: Nystatin SUSP 5 ML UD.LIQ PO SCH ×3 (10:11→20:25)
[2021-09-12] MEDS: FLUoxetine 20 MG CAPSULE PO SCH (10:12)
[2021-09-12] MEDS: Dexamethasone Sodium Phos/PF 10 MG/ML VIAL IVP SCH (10:12)
[2021-09-12] MEDS: *HR* Rivaroxaban 10 MG TABLET PO SCH (10:12)
[2021-09-12] MEDS: Aspirin Enteric Coated 81 MG Tablet PO SCH (10:12)
[2021-09-12] MEDS: Furosemide 40 MG/4 ML VIAL IVP SCH ×2 (10:12→20:25)
[2021-09-12] MEDS: lisinopriL 20 MG TABLET PO SCH (10:13)
[2021-09-12] MEDS: Metoprolol XL (24 HR) Succ 25 MG TAB.ER.24H PO SCH (10:13)
[2021-09-12] MEDS: (Roflumilast [Daliresp] 500 MCG Tablet) PO SCH (10:58)
[2021-09-12] MEDS: *HR* HYDROcodone/Acet 5/325 mg TABLET PO PRN (17:29)
[2021-09-12] MEDS: rOPINIRole 1 MG TABLET PO SCH (20:24)
[2021-09-13 02:58] LABS: BUN/Creatinine Ratio 26 (6-26); Blood Urea Nitrogen 18 mg/dL (8-23); Carbon Dioxide 45 mEq/L (23-29); Chloride 92 mEq/L (98-107); Glucose 112 mg/dL (70-105); Osmolality,Calculated 297 (280-300); Potassium 3.8 mEq/L (3.5-5.1); Sodium 142 mEq/L (136-145); eGFR For African Americans > 60 (> 60); eGFR For Non-African Americans > 60 (> 60)
[2021-09-13] MEDS: Nystatin SUSP 5 ML UD.LIQ PO SCH ×3 (09:02→20:13)
[2021-09-13] MEDS: lisinopriL 20 MG TABLET PO SCH (09:03)
[2021-09-13] MEDS: Dexamethasone Sodium Phos/PF 10 MG/ML VIAL IVP SCH (09:03)
[2021-09-13] MEDS: Metoprolol XL (24 HR) Succ 25 MG TAB.ER.24H PO SCH (09:03)
[2021-09-13] MEDS: FLUoxetine 20 MG CAPSULE PO SCH (09:03)
[2021-09-13] MEDS: *HR* Rivaroxaban 10 MG TABLET PO SCH (09:03)
[2021-09-13] MEDS: Aspirin Enteric Coated 81 MG Tablet PO SCH (09:03)
[2021-09-13] MEDS: Furosemide 40 MG/4 ML VIAL IVP SCH (09:04)
[2021-09-13] MEDS: Tiotropium 10 INH DOSE IH SCH (09:11)
[2021-09-13] MEDS: Budesonide/Formoterol 160/4.5 1 PUFF INH IH SCH ×2 (09:11→22:15)
[2021-09-13] MEDS: (Roflumilast [Daliresp] 500 MCG Tablet) PO SCH (09:32)
[2021-09-13] MEDS: ALPRAZolam 0.5 MG TABLET PO PRN (09:54)
[2021-09-13] MEDS: rOPINIRole 1 MG TABLET PO SCH (20:11)
[2021-09-14 02:12] LABS: Basophils % 0.3 %; Eosinophils % 0.1 %; Hematocrit 38.8 % (35.3-44.9); Hemoglobin 11.8 g/dL (11.5-15.4); Lymphocytes # 1.7 K/mcL (0.6-4.6); Mean Corpuscular HGB Conc 30.4 g/dL (31.6-35.5); Mean Corpuscular Hemoglobin 28.2 pg (28.0-33.3); Mean Corpuscular Volume 92.8 fL (83.0-100.0); Mean Platelet Volume 10.4 fL (9.4-12.4); Monocytes # 0.6 K/mcL (0.0-1.3); Monocytes % 6.1 %; Neutrophils # 7.4 K/mcL (1.6-8.9); Platelet Count 231 K/mcL (140-400); Red Blood Count 4.18 M/mcL (3.82-4.97); Red Cell Distribution Width 14.6 % (11.5-14.5); Segmented Neutrophils % 75.5 %; White Blood Count 9.8 K/mcL (4.3-11.1)
[2021-09-14 02:14] LABS: VBG HCO3 40 mEq/L (21-27); VBG PCO2 65 mmHg (41-51); VBG PH 7.39 pH Units (7.32-7.42); VBG PO2 49 mmHg (25-50)
[2021-09-14 02:38] LABS: BUN/Creatinine Ratio 26 (6-26); Blood Urea Nitrogen 18 mg/dL (8-23); Calcium 9.4 mg/dL (8.6-10.3); Carbon Dioxide 43 mEq/L (23-29); Chloride 95 mEq/L (98-107); Glucose 124 mg/dL (70-105); Osmolality,Calculated 297 (280-300); Potassium 3.8 mEq/L (3.5-5.1); Sodium 142 mEq/L (136-145); eGFR For African Americans > 60 (> 60); eGFR For Non-African Americans > 60 (> 60)
[2021-09-14] MEDS: Tiotropium 10 INH DOSE IH SCH (07:37)
[2021-09-14] MEDS: Budesonide/Formoterol 160/4.5 1 PUFF INH IH SCH ×2 (07:37→20:29)
[2021-09-14] MEDS: Aspirin Enteric Coated 81 MG Tablet PO SCH (09:59)
[2021-09-14] MEDS: Metoprolol XL (24 HR) Succ 25 MG TAB.ER.24H PO SCH (09:59)
[2021-09-14] MEDS: FLUoxetine 20 MG CAPSULE PO SCH (09:59)
[2021-09-14] MEDS: Torsemide 20 MG TABLET PO SCH (09:59)
[2021-09-14] MEDS: lisinopriL 20 MG TABLET PO SCH (09:59)
[2021-09-14] MEDS: *HR* Rivaroxaban 10 MG TABLET PO SCH (09:59)
[2021-09-14] MEDS: Nystatin SUSP 5 ML UD.LIQ PO SCH ×3 (10:00→21:11)
[2021-09-14] MEDS: Dexamethasone Sodium Phos/PF 10 MG/ML VIAL IVP SCH (10:00)
[2021-09-14] MEDS: (Roflumilast [Daliresp] 500 MCG Tablet) PO SCH (10:00)
[2021-09-14] MEDS ORDERED: *HR* Metoprolol 5 MG/5 ML VIAL IVP ONE (11:26)
[2021-09-14] MEDS ORDERED: *HR* Metoprolol 5 MG/5 ML VIAL IVP PRN (13:34)
[2021-09-14] MEDS: ALPRAZolam 0.5 MG TABLET PO PRN (15:17)
[2021-09-14] MEDS: rOPINIRole 1 MG TABLET PO SCH (21:11)
[2021-09-15] MEDS: *HR* HYDROcodone/Acet 5/325 mg TABLET PO PRN (05:41)
[2021-09-15] MEDS: Budesonide/Formoterol 160/4.5 1 PUFF INH IH SCH (07:48)
[2021-09-15] MEDS: Tiotropium 10 INH DOSE IH SCH (07:49)
[2021-09-15] MEDS: FLUoxetine 20 MG CAPSULE PO SCH (08:24)
[2021-09-15] MEDS: Torsemide 20 MG TABLET PO SCH (08:24)
[2021-09-15] MEDS: *HR* Rivaroxaban 10 MG TABLET PO SCH (08:24)
[2021-09-15] MEDS: lisinopriL 20 MG TABLET PO SCH (08:24)
[2021-09-15] MEDS: Aspirin Enteric Coated 81 MG Tablet PO SCH (08:24)
[2021-09-15] MEDS: Nystatin SUSP 5 ML UD.LIQ PO SCH (08:24)
[2021-09-15] MEDS: (Roflumilast [Daliresp] 500 MCG Tablet) PO SCH (08:25)
[2021-09-15] MEDS ORDERED: predniSONE 20 MG TABLET PO SCH (09:00)
[2021-09-15] MEDS ORDERED: Metoprolol XL (24 HR) Succ 25 MG TAB.ER.24H PO SCH (09:00)
[2021-09-15 10:52] VITALS: BP 129/45; PULSE 52; TEMP 98.2; O2SAT 96
== END 2021-09-15 13:33 | disposition home or self-care (01) | DRG 291 ==
LOC: EMEROOARM 17:25 → 2NENU 17:25 → SUATTDRO 21:08 → 2NENU 21:50
PROVIDERS: ADMIT Internal Medicine; ATTEND Internal Medicine

== ENCOUNTER 2022-01-11 14:07 | Inpatient (IN) ==
[2022-01-11] MEDS ORDERED: predniSONE 20 MG TABLET PO ONE (15:10)
[2022-01-11] MEDS ORDERED: Ipratropium/Albuterol Neb 3 ML IH ONE (15:10)
[2022-01-11 15:19] LABS: Basophils % 0.2 %; Eosinophils % 0.2 %; Hematocrit 39.4 % (35.3-44.9); Hemoglobin 11.6 g/dL (11.5-15.4); Immature Granulocytes % 0.6 % (0-4); Lymphocytes # 0.9 K/mcL (0.6-4.6); Lymphocytes % 4.8 %; Mean Corpuscular HGB Conc 29.4 g/dL (31.6-35.5); Mean Corpuscular Hemoglobin 27.5 pg (28.0-33.3); Mean Corpuscular Volume 93.4 fL (83.0-100.0); Mean Platelet Volume 10.9 fL (9.4-12.4); Monocytes # 1.9 K/mcL (0.0-1.3); Monocytes % 10.9 %; Neutrophils # 14.8 K/mcL (1.6-8.9); Platelet Count 256 K/mcL (140-400); Red Blood Count 4.22 M/mcL (3.82-4.97); Red Cell Distribution Width 14.1 % (11.5-14.5); Segmented Neutrophils % 83.3 %; White Blood Count 17.7 K/mcL (4.3-11.1)
[2022-01-11 16:00] LABS: BUN/Creatinine Ratio 11 (6-26); Blood Urea Nitrogen 8 mg/dL (8-23); Calcium 9.7 mg/dL (8.6-10.3); Carbon Dioxide 41 mEq/L (23-29); Chloride 94 mEq/L (98-107); Glucose 148 mg/dL (70-105); Osmolality,Calculated 291 (280-300); Potassium 3.7 mEq/L (3.5-5.1); Sodium 140 mEq/L (136-145); Troponin I 0.03 ng/mL (< 0.04)
[2022-01-11 16:09] LABS: Adenovirus Not Detected (Not Detect); Bordetella Pertussis Not Detected (Not Detect); Chlamydophila pneumoniae Not Detected (Not Detect); Coronavirus 229E Not Detected (Not Detect); Coronavirus HKU1 Not Detected (Not Detect); Coronavirus NL63 Not Detected (Not Detect); Coronavirus OC43 Not Detected (Not Detect); Human Metapneumovirus Not Detected (Not Detect); Human Rhinovirus/Enterovirus DETECTED (Not Detect); Influenza A Subtype 2009 H1 Not Detected (Not Detect); Influenza B Not Detected (Not Detect); Mycoplasma pneumoniae Not Detected (Not Detect); Parainfluenza Virus 1 Not Detected (Not Detect); Parainfluenza Virus 2 Not Detected (Not Detect); Parainfluenza Virus 3 Not Detected (Not Detect); Parainfluenza Virus 4 Not Detected (Not Detect); Respiratory Syncytial Virus Not Detected (Not Detect); SARS-CoV-2 Not Detected (Not Detect)
[2022-01-11] MEDS ORDERED: Melatonin 3 MG TABLET PO PRN (19:08)
[2022-01-11] MEDS ORDERED: Naloxone 0.4 MG/ML INJ IVP PRN (19:08)
[2022-01-11] MEDS ORDERED: Ondansetron ODT 4 MG TAB.RAPDIS SL PRN (19:08)
[2022-01-11 20:00] LABS: ABG Base Excess 12 mEq/L (-2 to 3); ABG HCO3 39 mEq/L (21-27); ABG Oxygen Saturation 96 % (95-98); ABG PCO2 65 mmHg (35-45); ABG PH 7.39 pH Units (7.32-7.45); ABG PO2 88 mmHg (85-104); ABG TCO2 41 mEq/L (20-26)
[2022-01-11] MEDS ORDERED: ALPRAZolam 0.5 MG TABLET PO PRN (20:16)
[2022-01-11] MEDS: Metoprolol XL (24 HR) Succ 25 MG TAB.ER.24H PO SCH (21:08)
[2022-01-11] MEDS: rOPINIRole 1 MG TABLET PO SCH (21:08)
[2022-01-11] MEDS: *HR* Rivaroxaban 10 MG TABLET PO SCH (21:09)
[2022-01-11] MEDS: Furosemide 20 MG/2 ML VIAL IVP SCH (21:10)
[2022-01-11] MEDS: Ipratropium/Albuterol Neb 3 ML IH SCH (21:53)
[2022-01-11] MEDS: Budesonide/Formoterol 160/4.5 1 PUFF INH IH SCH (21:53)
[2022-01-11] MEDS: Nystatin POWDER 30 GM BOTTLE TP SCH (23:39)
[2022-01-11] MEDS: MethylPREDNISolone 40 MG/ML VIAL IVP SCH (23:39)
[2022-01-12] MEDS: Ipratropium/Albuterol Neb 3 ML IH SCH ×5 (03:44→21:04)
[2022-01-12 06:32] LABS: Alanine Aminotransferase 7 Units/L (7-52); Albumin 3.6 g/dL (3.5-5.7); Alkaline Phosphatase 103 Units/L (34-104); Aspartate Amino Transferase 9 Units/L (13-39); BUN/Creatinine Ratio 15 (6-26); Bilirubin,Total 0.5 mg/dL (0.3-1.0); Blood Urea Nitrogen 10 mg/dL (8-23); Calcium 9.7 mg/dL (8.6-10.3); Carbon Dioxide 39 mEq/L (23-29); Chloride 95 mEq/L (98-107); Globulin 3.6 g/dL (2.4-3.5); Glucose 185 mg/dL (70-105); Magnesium 2.1 mg/dL (1.6-2.6); Phosphorous 4.2 mg/dL (2.7-4.5); Total Protein 7.2 g/dL (6.4-8.9); Troponin I < 0.03 ng/mL (< 0.04)
[2022-01-12 06:35] LABS: Osmolality,Calculated 296 (280-300); Sodium 141 mEq/L (136-145)
[2022-01-12 08:18] LABS: Basophils % 0.2 %; Hematocrit 38.4 % (35.3-44.9); Hemoglobin 11.6 g/dL (11.5-15.4); Immature Granulocytes % 1.2 % (0-4); Lymphocytes # 0.6 K/mcL (0.6-4.6); Lymphocytes % 3.5 %; Mean Corpuscular HGB Conc 30.2 g/dL (31.6-35.5); Mean Corpuscular Hemoglobin 27.9 pg (28.0-33.3); Mean Corpuscular Volume 92.3 fL (83.0-100.0); Mean Platelet Volume 10.5 fL (9.4-12.4); Neutrophils # 15.2 K/mcL (1.6-8.9); Platelet Count 255 K/mcL (140-400); Red Blood Count 4.16 M/mcL (3.82-4.97); Red Cell Distribution Width 13.9 % (11.5-14.5); Segmented Neutrophils % 89.1 %; White Blood Count 17.1 K/mcL (4.3-11.1)
[2022-01-12] MEDS: MethylPREDNISolone 40 MG/ML VIAL IVP SCH ×2 (09:03→17:00)
[2022-01-12] MEDS: Aspirin 81 MG TAB.CHEW PO SCH (09:04)
[2022-01-12] MEDS: Furosemide 20 MG/2 ML VIAL IVP SCH ×2 (09:04→20:34)
[2022-01-12] MEDS: Cholecalciferol (D-3) 1,000 UNIT (25MCG) TABLET PO SCH (09:04)
[2022-01-12] MEDS: lisinopriL 20 MG TABLET PO SCH (09:05)
[2022-01-12] MEDS: FLUoxetine 20 MG CAPSULE PO SCH (09:05)
[2022-01-12] MEDS: Nystatin POWDER 30 GM BOTTLE TP SCH ×3 (09:05→20:33)
[2022-01-12] MEDS: Metoprolol XL (24 HR) Succ 25 MG TAB.ER.24H PO SCH (09:05)
[2022-01-12] MEDS: Roflumilast [Daliresp] 500 MCG Tablet PO SCH (09:06)
[2022-01-12] MEDS: Fluticasone Propionate Nasal 50 MCG/SPRAY BOTTLE NS PRN (09:06)
[2022-01-12] MEDS: Budesonide/Formoterol 160/4.5 1 PUFF INH IH SCH ×2 (09:26→21:04)
[2022-01-12] MEDS: Tiotropium 10 INH DOSE IH SCH (09:27)
[2022-01-12] MEDS: *HR* Rivaroxaban 10 MG TABLET PO SCH (17:00)
[2022-01-12] MEDS: *HR* HYDROcodone/Acet 7.5/325 mg TABLET PO PRN (20:33)
[2022-01-12] MEDS: rOPINIRole 1 MG TABLET PO SCH (20:34)
[2022-01-13] MEDS: MethylPREDNISolone 40 MG/ML VIAL IVP SCH ×4 (00:24→23:53)
[2022-01-13] MEDS: Ipratropium/Albuterol Neb 3 ML IH SCH ×4 (03:50→22:15)
[2022-01-13 06:33] LABS: Hematocrit 41.5 % (35.3-44.9); Hemoglobin 12.2 g/dL (11.5-15.4); Mean Corpuscular HGB Conc 29.4 g/dL (31.6-35.5); Mean Corpuscular Hemoglobin 27.2 pg (28.0-33.3); Mean Corpuscular Volume 92.6 fL (83.0-100.0); Mean Platelet Volume 11.1 fL (9.4-12.4); Platelet Count 316 K/mcL (140-400); Red Blood Count 4.48 M/mcL (3.82-4.97); Red Cell Distribution Width 13.7 % (11.5-14.5); White Blood Count 16.8 K/mcL (4.3-11.1)
[2022-01-13 06:57] LABS: Calcium 10.1 mg/dL (8.6-10.3); Magnesium 2.2 mg/dL (1.6-2.6); Potassium 3.8 mEq/L (3.5-5.1)
[2022-01-13] MEDS: *HR* HYDROcodone/Acet 7.5/325 mg TABLET PO PRN ×2 (07:41→21:15)
[2022-01-13] MEDS: Fluticasone Propionate Nasal 50 MCG/SPRAY BOTTLE NS PRN (09:10)
[2022-01-13] MEDS: Aspirin 81 MG TAB.CHEW PO SCH (09:11)
[2022-01-13] MEDS: Furosemide 20 MG/2 ML VIAL IVP SCH ×2 (09:11→21:17)
[2022-01-13] MEDS: Cholecalciferol (D-3) 1,000 UNIT (25MCG) TABLET PO SCH (09:11)
[2022-01-13] MEDS: lisinopriL 20 MG TABLET PO SCH (09:12)
[2022-01-13] MEDS: Nystatin POWDER 30 GM BOTTLE TP SCH ×3 (09:12→21:15)
[2022-01-13] MEDS: FLUoxetine 20 MG CAPSULE PO SCH (09:12)
[2022-01-13] MEDS: Metoprolol XL (24 HR) Succ 25 MG TAB.ER.24H PO SCH (09:12)
[2022-01-13] MEDS: Roflumilast [Daliresp] 500 MCG Tablet PO SCH (09:14)
[2022-01-13] MEDS: Budesonide/Formoterol 160/4.5 1 PUFF INH IH SCH ×2 (09:33→21:16)
[2022-01-13] MEDS: Tiotropium 10 INH DOSE IH SCH (09:34)
[2022-01-13] MEDS: *HR* Rivaroxaban 10 MG TABLET PO SCH (16:57)
[2022-01-13] MEDS: rOPINIRole 1 MG TABLET PO SCH (21:14)
[2022-01-14 04:04] VITALS: BP 147/87; PULSE 58; TEMP 96.6
[2022-01-14] MEDS: Ipratropium/Albuterol Neb 3 ML IH SCH ×3 (04:30→15:42)
[2022-01-14 04:58] LABS: Hematocrit 40.3 % (35.3-44.9); Hemoglobin 12.1 g/dL (11.5-15.4); Mean Corpuscular Hemoglobin 27.6 pg (28.0-33.3); Mean Platelet Volume 10.6 fL (9.4-12.4); Platelet Count 319 K/mcL (140-400); Red Blood Count 4.38 M/mcL (3.82-4.97); Red Cell Distribution Width 13.9 % (11.5-14.5); White Blood Count 15.8 K/mcL (4.3-11.1)
[2022-01-14 05:25] LABS: Calcium 9.7 mg/dL (8.6-10.3); Magnesium 2.2 mg/dL (1.6-2.6); Potassium 4.1 mEq/L (3.5-5.1)
[2022-01-14] MEDS: Tiotropium 10 INH DOSE IH SCH (07:29)
[2022-01-14] MEDS: Cholecalciferol (D-3) 1,000 UNIT (25MCG) TABLET PO SCH (09:28)
[2022-01-14] MEDS: Aspirin 81 MG TAB.CHEW PO SCH (09:29)
[2022-01-14] MEDS: MethylPREDNISolone 40 MG/ML VIAL IVP SCH ×2 (09:29→14:51)
[2022-01-14] MEDS: Furosemide 20 MG/2 ML VIAL IVP SCH (09:29)
[2022-01-14] MEDS: Metoprolol XL (24 HR) Succ 25 MG TAB.ER.24H PO SCH (09:29)
[2022-01-14] MEDS: Nystatin POWDER 30 GM BOTTLE TP SCH ×2 (09:29→14:50)
[2022-01-14] MEDS: lisinopriL 20 MG TABLET PO SCH (09:29)
[2022-01-14] MEDS: FLUoxetine 20 MG CAPSULE PO SCH (09:29)
[2022-01-14] MEDS: Roflumilast [Daliresp] 500 MCG Tablet PO SCH (09:30)
[2022-01-14] MEDS: Budesonide/Formoterol 160/4.5 1 PUFF INH IH SCH (10:04)
[2022-01-14] MEDS: *HR* HYDROcodone/Acet 7.5/325 mg TABLET PO PRN (14:50)
[2022-01-14 15:45] VITALS: O2SAT 93
== END 2022-01-14 18:53 | disposition home health service (06) | DRG 190 ==
LOC: 3NENU 14:07 → EMEROOARM 14:07 → 3NENU 18:33
PROVIDERS: ADMIT Internal Medicine; ATTEND Internal Medicine